=== PATIENT | female | born 1930 | race Caucasian/White ===

== ENCOUNTER 2016-11-19 15:11 | Inpatient (IN) | payer MEDICARE, BC, SELFPAY ==
[2016-11-19] MEDS ORDERED: Albuterol/Ipratropium 3.0-0.5 MG/3 ML Neb Soln NEB PRN (17:17)
[2016-11-19] MEDS ORDERED: Levofloxacin/Dextrose 5%-Water 750 MG in Premix Bag 1 BAG IV SCH (18:00)
[2016-11-19] MEDS ORDERED: Ondansetron 4 MG Tab.DIS PO PRN (18:01)
[2016-11-19] MEDS ORDERED: Sodium Chloride 0.9% 10 ML Syringe FLUSH PRN (18:01)
[2016-11-19] MEDS ORDERED: Sodium Chloride 0.9% 2.5 ML Syringe FLUSH PRN (18:01)
[2016-11-19] MEDS ORDERED: Sodium Chloride 0.9% with KCl 1,000 ML IV SCH (19:15)
[2016-11-19] MEDS ORDERED: Potassium Chloride 20 MEQ Tab.ER PO ONE (19:40)
--- NOTE | 2016-11-19 21:10 | PCM.HP ---
H&P History of Present Illness - General Date of Service: 11/19/16 Admit Problem/Dx: Admission Diagnosis/Problem Admission Diagnosis/Problem Pneumonia Source of Information: Patient, Family - History of Present Illness Initial Comments - Free Text/Narative: History Presenting illness: Patient is a 86-year-old female who lives at home with her son. History was primarily obtained from patient's son and patient's niece. Patient's son states that he is ill 1-1/2 weeks ago with a upper respiratory tract infection which he got over with just some [id number] medication. However around the same time he noticed that his mom picked up his infection as well and she began to cough primarily at nighttime. Then on Thursday this past weekend patient was going to the bathroom and states that while in the bathroom she fell. Her son came up to see what had happened and noticed that his mom was on the floor on her buttocks. Her son asked the patient if she had hit her head patient denied hitting her head or losing consciousness. The son then helped his mom up which did cause some bruising of her lateral chest wall. The patient did have pain and bruising along her lateral thigh and buttocks region. However after the fall the patient's son as well as the patient's niece noticed that she was becoming more and more weak and more more fatigued and her cough is progressively getting worse as well. Along the same time the patient started to have problems with fecal incontinence. And started to have multiple accidents before being able to get to the bathroom. This progressed to the point where the patient's niece and son decided to bring the patient in to see her primary care physician in [place] today. She did have a further 2 episodes of fecal incontinence one just prior to going to the physician's office and one at the physician's office. The physician's office D practitioner noticed that the patient had an elevated WBC count that was neutrophilic in nature, was fatigued and weak, and had very poor rectal tone. The practitioner got a chest x-ray which showed left lower lobe consolidation patchy in nature which was read as either atelectasis versus left lower lobe pneumonia. It is to be noted that the patient has had one episode of a previous fall 6 months ago, she does have severe kyphosis and a old history of compression fracture making her likelihood that she does have osteoporosis severe in nature, as well as she has a past medical history of urinary incontinence. Patient is on hypertensive medication ophthalmic medication for her glaucoma and a statin. - Related Data Allergies/Adverse Reactions: Allergies Allergy/AdvReac Type Severity Reaction Status Date / Time prochlorperazine edisylate Allergy Cannot Verified 06/06/14 14:04 [From Compazine] Remember prochlorperazine maleate Allergy Cannot Verified 06/06/14 14:04 [From Compazine] Remember Home Medications: Home Meds Aspirin [Halfprin] 81 mg PO DAILY 06/06/14 [History] Dorzolamide/Timolol [Dorzolomide-Timolol Eye Drops] 1 drop EYELF BID 06/06/14 [ History] Felodipine [Felodipine ER] 5 mg PO DAILY 06/06/14 [History] Fish Oil/Olivet-3 Fatty Acids [Fish Oil] 0 mg PO DAILY 06/06/14 [History] Latanoprost 1 drop EYELF BEDTIME 06/06/14 [History] Losartan/Hydrochlorothiazide [Losartan-HCTZ 100-25 MG] 1 tab PO DAILY 06/06/14 [ History] Oxybutynin [Oxybutynin ER] 5 mg PO DAILY 06/06/14 [History] Potassium Chloride [Klor-Con 10] 10 meq PO DAILY 06/06/14 [History] Mirtazapine 15 mg PO DAILY 11/19/16 [History] Multivitamin with Minerals [Multiple Vitamin] 1 tab PO DAILY 11/19/16 [History] atorvaSTATin [Lipitor] 10 mg PO DAILY 11/19/16 [History] prednisoLONE Acetate [Pred Forte 1% Ophth Susp] 1 drop EYERT BID 11/19/16 [ History] Past Medical History HEENT History: Reports: Glaucoma Cardiovascular History: Reports: Hypertension 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, Recurrent [employer] SMALL ANIMAL History: Reports: Other (See Below) Other OB/BYN History: hysterectomy Musculoskeletal History: Reports: Osteoporosis Psychiatric History: Reports: Anxiety Dermatologic History: Reports: Other (See Below) Other Dermatologic History: yeast infections - Past Surgical History HEENT Surgical History: Reports: Cataract Surgery Cardiovascular Surgical History: Reports: None Respiratory Surgical History: Reports: None Musculoskeletal Surgical History: Reports: None Dermatological Surgical History: Reports: None Social & Family History - Family History HEENT: Reports: Glaucoma Cardiac: Reports: Hypertension Respiratory: Reports: COPD Musculoskeletal: Reports: Arthritis, Osteoporosis - Tobacco Use Smoking Status *Q: Never Smoker Second Hand Smoke Exposure: Yes - Caffeine Use Caffeine Use: Reports: Coffee - Alcohol Use Days Per Week of Alcohol Use: 0 - Recreational Drug Use Recreational Drug Use: No H&P Review of Systems - Review of Systems: Review Of Systems: ROS reveals no pertinent complaints other than HPI. Exam - Exam Exam: See Below - Vital Signs Vital Signs: Last Vital Signs Temp 36.2 C 11/19/16 20:00 Pulse 92 11/19/16 20:00 Resp 20 11/19/16 16:00 BP 132/60 11/19/16 16:00 Pulse Ox 92 L 11/19/16 19:38 Weight: 64 kg - Exam General: Alert, Oriented HEENT: Conjunctiva Clear, Mucosa Moist & Jem[place], Other (No fractures noted on evaluation of the head, no ni sign/ecchymosis noticed that the back of the ear lobes, no raccoon eyes noted.) Neck: Supple Lungs: Decreased Breath Sounds, Crackles, Rales, Wheezing, Other (Bruising around the right ninth rib laterally) Cardiovascular: Regular Rate GI/Abdominal Exam: Normal Bowel Sounds, Soft, No Organomegaly (Female) Exam: Other (Poor rectal tone noted on CARLOS, superficial skin breakdown/excoriation , minor ulceration along the labial folds and inner thigh of the inguinal region likely secondary to fungal infection) Rectal (Female) Exam: Decreased Rectal Tone Extremities: Pedal Edema, Other (+2 pitting edema bilaterally lower extremities up to the ankles, bruise along the lateral right thigh, upon palpation of back and lower extremities no saddle anesthesia noticed) - Patient Data Lab Results Last 24 hrs: Laboratory Results - last 24 hr 11/19/16 11/19/16 11/19/16 Range/Units 18:52 18:52 18:52 WBC 16.56 H (4.0-11.0) K/uL RBC 3.45 L (4.30-5.90) M/uL Hgb 10.1 L (12.0-16.0) g/dL Hct 30.8 L (36.0-46.0) % MCV 89.3 (80.0-98.0) fL MCH 29.3 (27.0-32.0) pg MCHC 32.8 (31.0-37.0) g/dL RDW Std Deviation 52.9 (28.0-62.0) fl RDW Coeff of Dillon 16 H (11.0-15.0) % Plt Count 367 (150-400) K/uL MPV 9.10 (7.40-12.00) fL Neut % (Auto) 77.2 (48.0-80.0) % Lymph % (Auto) 15.7 L (16.0-40.0) % Wolfe % (Auto) 5.8 (0.0-15.0) % Eos % (Auto) 1.1 (0.0-7.0) % Baso % (Auto) 0.2 (0.0-1.5) % Neut # (Auto) 12.8 H (1.4-5.7) K/uL Lymph # (Auto) 2.6 H (0.6-2.4) K/uL Wolfe # (Auto) 1.0 H (0.0-0.8) K/uL Eos # (Auto) 0.2 (0.0-0.7) K/uL Baso # (Auto) 0.0 (0.0-0.1) K/uL Nucleated RBC % 0.0 /100WBC Nucleated RBCs # 0 K/uL Sodium 137 (136-146) mmol/L Potassium 2.4 L* (3.5-5.1) mmol/L Chloride 94 L (98-110) mmol/L Carbon Dioxide 31 (21-31) mmol/L BUN 54 H (6.0-23.0) mg/dL Creatinine 1.5 (0.6-1.5) mg/dL Est Cr Clr Drug Dosing 19.94 mL/min Estimated GFR (MDRD) 32.8 ml/min Glucose 86 (60-110) mg/dL Calcium 8.2 L (8.8-10.8) mg/dL Magnesium 1.8 (1.5-2.3) mEq/L Total Bilirubin 0.3 (0.1-1.5) mg/dL AST 21 (5-40) IU/L ALT 18 (8-54) IU/L Alkaline Phosphatase 72 (40-150) Total Protein 6.4 (6.0-8.0) g/dL Albumin 2.8 L (3.4-4.8) g/dL Globulin 3.6 H (2.0-3.5) g/dL Albumin/Globulin Ratio 0.8 L (1.3-2.8) Result Diagrams: 11/19/16 18:52 11/19/16 18:52 Matteo Results Last 24 hrs: Microbiology 11/19/16 19:30 Influenza Type A Antigen Screen - Final Nasopharyngeal Swab - Nare, Left NEGATIVE INFLUENZA A VIRUS AG Influenza Type B Antigen Screen - Final NEGATIVE INFLUENZA B VIRUS AG *Q Meaningful Use (ADM) - VTE *Q VTE Criteria *Q: - Stroke *Q Stroke Criteria *Q: - AMI *Q AMI Criteria *Q: Problem List Initiated/Reviewed/Updated: Yes Orders Last 24hrs: Active Orders 24 hr Category Date Time Status Patient Status [ADT] Routine ADT 11/19/16 17:21 Active Bedrest Bedside Commode [RC] ASDIRECTED Care 11/19/16 17:44 Active Intake and Output [RC] Q12H Care 11/19/16 17:45 Active Notify Provider Vital Signs [RC] ASDIRECTED Care 11/19/16 17:46 Active Oxygen Therapy [RC] PRN Care 11/19/16 17:17 Active Oxygen Therapy [RC] PRN Care 11/19/16 17:21 Active Pneumonia Education [RC] Click To Edit Care 11/19/16 17:17 Active Pulse Oximetry [RC] PRN Care 11/19/16 17:45 Active RT Incentive Spirometry [RC] ASDIRECTED Care 11/19/16 17:17 Active Telemetry Monitoring [Cardiac Monitoring] [RC] Care 11/19/16 19:44 Active ASDIRECTED VTE/DVT Education [RC] PER UNIT ROUTINE Care 11/19/16 17:21 Active Vital Signs [RC] Q4H Care 11/19/16 17:21 Active Regular Diet [DIET] Diet 11/19/16 Breakfast Active Chest 1V Frontal [CR] Stat Exams 11/19/16 18:01 Taken CULTURE BLOOD [BC] Stat Lab 11/19/16 18:52 Received CULTURE BLOOD [BC] Stat Lab 11/19/16 19:02 Received CULTURE SPUTUM + SMEAR [RM] Stat Lab 11/19/16 17:17 Uncollected LEGIONELLA ANTIGEN [RM] Stat Lab 11/19/16 17:17 Uncollected STREP PNEUMONIAE ANTIGEN [MREF] Stat Lab 11/19/16 17:17 Uncollected Acetaminophen [Tylenol] Med 11/19/16 18:01 Active 650 mg PO Q4H PRN Albuterol/Ipratropium [DuoNeb 3.0-0.5 MG/3 ML] Med 11/19/16 17:17 Active 3 ml NEB Q4HRRT PRN Enoxaparin [Lovenox] Med 11/20/16 09:00 Active 30 mg SUBCUT DAILY Levofloxacin/Dextrose 5%-Water [Levaquin in D5W 750 MG/ Med 11/21/16 18:00 Active 150 ML] 750 mg Premix Bag 1 bag IV Q48H Nystatin [Nystop] Med 11/19/16 22:00 Active 0 gm TOP TID Ondansetron [Zofran ODT] Med 11/19/16 18:01 Active 4 mg PO Q4H PRN Sodium Chloride 0.9% [Saline Flush] Med 11/19/16 18:01 Active 10 ml FLUSH ASDIRECTED PRN Sodium Chloride 0.9% [Saline Flush] Med 11/19/16 18:01 Active 2.5 ml FLUSH ASDIRECTED PRN Sodium Chloride 0.9% with KCl [Normal Saline with 40 Med 11/19/16 19:15 Active mEq KCl] 1,000 ml IV ASDIRECTED Blood Culture x2 Reflex Set [OM.PC] Stat Oth 11/19/16 17:17 Ordered Peripheral IV Insertion Adult [OM.PC] Routine Oth 11/19/16 18:01 Ordered Saline Lock Insert [OM.PC] Routine Oth 11/19/16 18:01 Ordered Resuscitation Status Routine Resus Stat 11/19/16 17:21 Ordered Medication Orders Acetaminophen (Tylenol) 650 mg PO Q4H PRN PRN Reason: Pain (Mild 1-3)/fever Albuterol/Ipratropium (Duoneb 3.0-0.5 Mg/3 Ml) 3 ml NEB Q4HRRT PRN PRN Reason: Shortness Of Breath/wheezing Enoxaparin Sodium (Lovenox) 30 mg SUBCUT DAILY ANDREINA Potassium Chloride/Sodium Chloride (Normal Saline With 40 Meq Kcl) 1,000 mls @ 150 mls/hr IV ASDIRECTED ANDREINA Stop: 11/20/16 01:54 Last Admin: 11/19/16 19:46 Dose: 150 mls/hr Levofloxacin/Dextrose 750 mg/ (Premix) 150 mls @ 150 mls/hr IV Q48H ANDREINA Nystatin (Nystop) 0 gm TOP TID ANDREINA Ondansetron HCl (Zofran Odt) 4 mg PO Q4H PRN PRN Reason: nausea, able to take PO Sodium Chloride (Saline Flush) 10 ml FLUSH ASDIRECTED PRN PRN Reason: Keep Vein Open Sodium Chloride (Saline Flush) 2.5 ml FLUSH ASDIRECTED PRN PRN Reason: Keep Vein Open Assessment/Plan Comment:: Assessment/plan: #1. Shortness of breath, wheezing, fatigue/weakness, elevated WBC count is neutrophilic in nature, cough, patchy infiltration of left lower lobe secondary to left lower lobe pneumonia bacterial in nature as the most likely cause -Sputum cultures, blood cultures 2, urine strep pneumonia antigen as well as Legionella antigen as well as influenza cultures shall be obtained for this patient -CBC with differential, CMP -Repeat chest x-ray -Levaquin 750 mg IV along with dual nebs every 6 hours ,oxygenation support as needed #2. Hypokalemia with a potassium of 2.8 upon admission - Started the patient on IV fluids normal saline with 40 of potassium at a rate of 125 mL per hour #3. Skin breakdown/excoriation/ulceration of vaginal fold along with inner thigh likely secondary to fungal infection -Topical nystatin powder 1000 mg 3 times a day #4. Lovenox and SCDs for DVT prophylaxis #5. Vitals monitored. A protocol along with regular diet Patient shall be an inpatient status with assumption of stayed greater than 2 midnights.
[2016-11-19] MEDS: Nystatin Topical Powder 15 GM Bottle TOP SCH (22:18)
[2016-11-20] MEDS: Nystatin Topical Powder 15 GM Bottle TOP SCH ×3 (06:22→21:23)
[2016-11-20] MEDS: Enoxaparin 30 MG/0.3 ML Syringe SUBCUT SCH (09:01)
[2016-11-20] MEDS: Dorzolamide/Timolol 2%-0.5% Ophth Soln 10 ML Bottle EYELF SCH ×2 (11:56→20:24)
[2016-11-20] MEDS: prednisoLONE Acetate 1% Ophth Susp 5 ML Bottle EYERT SCH ×2 (11:57→20:25)
--- NOTE | 2016-11-20 13:07 | CR ---
EXAM DATE: 11/19/16 PATIENT'S AGE: 86 Patient: VINOD SHIPLEY Facility: [place], [place] Site . Site : [id number] Study: XRay Chest [id number] 7:22:10 PM Ordering Physician: Davon Muñoz Final Report: INDICATION: llb pna HISTORY: Left lower lobe pneumonia. COMPARISON: None. TECHNIQUE: Chest one-view portable. FINDINGS: Low lung volumes. Vague opacities in both lungs, right greater the left, which may be secondary to low lung volumes, but followup is advised. Chronic appearing right posterior rib fractures. Atelectasis or consolidation at the left lung base, with blunting of the left lateral costophrenic sulcus. This could represent a small left pleural effusion. There is no pneumothorax. Central airway is normal. IMPRESSION: Atelectasis or consolidation at the left lung base, with a suspected small ipsilateral pleural effusion. Dictated by Francisco West MD @ 11/20/2016 12:10:01 PM Dictated by: Francisco West MD @ 11/20/2016 12:10:09 (Electronic Signature) Report Signed by Proxy. TREY
--- NOTE | 2016-11-20 19:14 | PCM.PN ---
- General Info Date of Service: 11/20/16 Admission Dx/Problem (Free Text): Pnio has done well overnight. She still is having some tachypnea but overall doing better no longer wheezing when I saw her this morning she was eating a very large breakfast and seemed to be much more awake much more alert and very talkative. He is denying any nausea or vomiting, denying any headaches, denied any abdominal symptoms. She is no longer febrile. Taking in good by mouth. Will get physical therapy to work with with her - Review of Systems General: Reports: Weakness, Fatigue HEENT: Reports: No Symptoms Pulmonary: Reports: Shortness of Breath Cardiovascular: Reports: Lightheadedness Gastrointestinal: Reports: No Symptoms Genitourinary: Reports: Incontinence Musculoskeletal: Reports: Leg Pain Skin: Reports: Rash Neurological: Reports: No Symptoms Psychiatric: Reports: No Symptoms - Patient Data Vitals - Most Recent: Last Vital Signs Temp 36.4 C 11/20/16 16:00 Pulse 79 11/20/16 16:00 Resp 20 11/20/16 16:00 BP 132/58 L 11/20/16 16:00 Pulse Ox 91 L 11/20/16 18:04 Weight - Most Recent: 66.5 kg I&O - Last 24 Hours: Intake & Output 11/20/16 11/20/16 11/20/16 06:59 14:59 22:59 Intake Total 2300 1116 Output Total 150 600 Balance 2150 516 Lab Results Last 24 Hours: Laboratory Results - last 24 hr 11/19/16 11/19/16 11/19/16 Range/Units 18:52 18:52 18:52 WBC 16.56 H (4.0-11.0) K/uL RBC 3.45 L (4.30-5.90) M/uL Hgb 10.1 L (12.0-16.0) g/dL Hct 30.8 L (36.0-46.0) % MCV 89.3 (80.0-98.0) fL MCH 29.3 (27.0-32.0) pg MCHC 32.8 (31.0-37.0) g/dL RDW Std Deviation 52.9 (28.0-62.0) fl RDW Coeff of Dillon 16 H (11.0-15.0) % Plt Count 367 (150-400) K/uL MPV 9.10 (7.40-12.00) fL Neut % (Auto) 77.2 (48.0-80.0) % Lymph % (Auto) 15.7 L (16.0-40.0) % Caldwell % (Auto) 5.8 (0.0-15.0) % Eos % (Auto) 1.1 (0.0-7.0) % Baso % (Auto) 0.2 (0.0-1.5) % Neut # (Auto) 12.8 H (1.4-5.7) K/uL Lymph # (Auto) 2.6 H (0.6-2.4) K/uL Caldwell # (Auto) 1.0 H (0.0-0.8) K/uL Eos # (Auto) 0.2 (0.0-0.7) K/uL Baso # (Auto) 0.0 (0.0-0.1) K/uL Nucleated RBC % 0.0 /100WBC Nucleated RBCs # 0 K/uL Sodium 137 (136-146) mmol/L Potassium 2.4 L* (3.5-5.1) mmol/L Chloride 94 L (98-110) mmol/L Carbon Dioxide 31 (21-31) mmol/L BUN 54 H (6.0-23.0) mg/dL Creatinine 1.5 (0.6-1.5) mg/dL Est Cr Clr Drug Dosing 19.94 mL/min Estimated GFR (MDRD) 32.8 ml/min Glucose 86 (60-110) mg/dL Calcium 8.2 L (8.8-10.8) mg/dL Magnesium 1.8 (1.5-2.3) mEq/L Total Bilirubin 0.3 (0.1-1.5) mg/dL AST 21 (5-40) IU/L ALT 18 (8-54) IU/L Alkaline Phosphatase 72 (40-150) Total Protein 6.4 (6.0-8.0) g/dL Albumin 2.8 L (3.4-4.8) g/dL Globulin 3.6 H (2.0-3.5) g/dL Albumin/Globulin Ratio 0.8 L (1.3-2.8) Urine Color Urine Appearance Urine pH (5.0-8.0) Ur Specific [place] (1.001-1.035) Urine Protein (NEGATIVE) mg/dL Urine Glucose (UA) (NEGATIVE) mg/dL Urine Ketones (NEGATIVE) mg/dL Urine Occult Blood (NEGATIVE) Urine Nitrite (NEGATIVE) Urine Bilirubin (NEGATIVE) Urine Urobilinogen (<2.0) EU/dL Ur Leukocyte Esterase (NEGATIVE) Urine RBC (0-2/HPF) Urine WBC (0-5/HPF) Ur Epithelial Cells (NONE-FEW) Urine Bacteria (NEGATIVE) 11/19/16 11/20/16 11/20/16 Range/Units 22:45 04:50 04:50 WBC 13.96 H (4.0-11.0) K/uL RBC 3.34 L (4.30-5.90) M/uL Hgb 9.6 L (12.0-16.0) g/dL Hct 29.5 L (36.0-46.0) % MCV 88.3 (80.0-98.0) fL MCH 28.7 (27.0-32.0) pg MCHC 32.5 (31.0-37.0) g/dL RDW Std Deviation 51.4 (28.0-62.0) fl RDW Coeff of Dillon 16 H (11.0-15.0) % Plt Count 303 (150-400) K/uL MPV 8.90 (7.40-12.00) fL Neut % (Auto) 78.6 (48.0-80.0) % Lymph % (Auto) 13.3 L (16.0-40.0) % Caldwell % (Auto) 6.8 (0.0-15.0) % Eos % (Auto) 1.2 (0.0-7.0) % Baso % (Auto) 0.1 (0.0-1.5) % Neut # (Auto) 11.0 H (1.4-5.7) K/uL Lymph # (Auto) 1.9 (0.6-2.4) K/uL Caldwell # (Auto) 1.0 H (0.0-0.8) K/uL Eos # (Auto) 0.2 (0.0-0.7) K/uL Baso # (Auto) 0.0 (0.0-0.1) K/uL Nucleated RBC % 0.0 /100WBC Nucleated RBCs # 0 K/uL Sodium 135 L (136-146) mmol/L Potassium 3.9 (3.5-5.1) mmol/L Chloride 99 (98-110) mmol/L Carbon Dioxide 28 (21-31) mmol/L BUN 40 H (6.0-23.0) mg/dL Creatinine 1.0 (0.6-1.5) mg/dL Est Cr Clr Drug Dosing 29.91 mL/min Estimated GFR (MDRD) 52.4 ml/min Glucose 82 (60-110) mg/dL Calcium 7.3 L (8.8-10.8) mg/dL Magnesium (1.5-2.3) mEq/L Total Bilirubin 0.3 (0.1-1.5) mg/dL AST 19 (5-40) IU/L ALT 17 (8-54) IU/L Alkaline Phosphatase 65 (40-150) Total Protein 5.2 L (6.0-8.0) g/dL Albumin 2.5 L (3.4-4.8) g/dL Globulin 2.7 (2.0-3.5) g/dL Albumin/Globulin Ratio 0.9 L (1.3-2.8) Urine Color YELLOW Urine Appearance SLT CLOUDY Urine pH 6.0 (5.0-8.0) Ur Specific [place] 1.010 (1.001-1.035) Urine Protein NEGATIVE (NEGATIVE) mg/dL Urine Glucose (UA) NEGATIVE (NEGATIVE) mg/dL Urine Ketones NEGATIVE (NEGATIVE) mg/dL Urine Occult Blood TRACE-INTACT (NEGATIVE) Urine Nitrite POSITIVE H (NEGATIVE) Urine Bilirubin NEGATIVE (NEGATIVE) Urine Urobilinogen 0.2 (<2.0) EU/dL Ur Leukocyte Esterase SMALL (NEGATIVE) Urine RBC 0-2 (0-2/HPF) Urine WBC 30-40 (0-5/HPF) Ur Epithelial Cells FEW (NONE-FEW) Urine Bacteria FEW (NEGATIVE) Matteo Results Last 24 Hours: Microbiology 11/19/16 22:45 Streptococcus pneumoniae Ag Screen - Final Urine 11/19/16 22:45 Legionella Antigen - Final Urine, Catheterized 11/19/16 20:52 Gram Stain - Preliminary Sputum - Expectorated 11/19/16 19:30 Influenza Type A Antigen Screen - Final Nasopharyngeal Swab - Nare, Left NEGATIVE INFLUENZA A VIRUS AG Influenza Type B Antigen Screen - Final NEGATIVE INFLUENZA B VIRUS AG Med Orders - Current: Current Medications Acetaminophen (Tylenol) 650 mg PO Q4H PRN PRN Reason: Pain (Mild 1-3)/fever Albuterol/Ipratropium (Duoneb 3.0-0.5 Mg/3 Ml) 3 ml NEB Q4HRRT PRN PRN Reason: Shortness Of Breath/wheezing Dorzolamide/Timolol (Cosopt 2%-0.5% Ophth Soln) 0 ml EYELF BID [facility] Last Admin: 11/20/16 11:56 Dose: 1 drop Enoxaparin Sodium (Lovenox) 30 mg SUBCUT DAILY [facility] Last Admin: 11/20/16 09:01 Dose: 30 mg Levofloxacin/Dextrose 750 mg/ (Premix) 150 mls @ 150 mls/hr IV Q48H [facility] Latanoprost (Xalatan 0.005% Ophth Soln) 0 ml EYELF BEDTIME [facility] Nystatin (Nystop) 0 gm TOP TID [facility] Last Admin: 11/20/16 14:41 Dose: 1 applic Ondansetron HCl (Zofran Odt) 4 mg PO Q4H PRN PRN Reason: nausea, able to take PO Prednisolone Acetate (Pred Forte 1% Ophth Susp) 0 ml EYERT BID [facility] Last Admin: 11/20/16 11:57 Dose: 1 drop Sodium Chloride (Saline Flush) 10 ml FLUSH ASDIRECTED PRN PRN Reason: Keep Vein Open Sodium Chloride (Saline Flush) 2.5 ml FLUSH ASDIRECTED PRN PRN Reason: Keep Vein Open Discontinued Medications Levofloxacin/Dextrose 750 mg/ (Premix) 150 mls @ 150 mls/hr IV Q24H [facility] Last Infusion: 11/19/16 20:10 Dose: Infused Potassium Chloride/Sodium Chloride (Normal Saline With 40 Meq Kcl) 1,000 mls @ 150 mls/hr IV ASDIRECTED [facility] Stop: 11/20/16 01:54 Last Infusion: 11/20/16 02:32 Dose: Infused Potassium Chloride (Klor-Con M20) 40 meq PO ONETIME ONE Stop: 11/19/16 19:41 Last Admin: 11/19/16 19:53 Dose: 40 meq - Exam Quality Assessment: Supplemental Oxygen General: Alert, Oriented, Cooperative HEENT: Pupils Equal Neck: Supple Lungs: Decreased Breath Sounds Cardiovascular: Regular Rate, Regular Rhythm GI/Abdominal Exam: Normal Bowel Sounds, Soft (Female) Exam: Other (Rash/fungal infection lateral thigh and vaginal fold) Psy/Mental Status: Alert, Normal Affect - Problem List Review Problem List Initiated/Reviewed/Updated: Yes - My Orders Last 24 Hours: My Active Orders 11/19/16 18:52 CULTURE BLOOD [BC] Stat 11/19/16 19:02 CULTURE BLOOD [BC] Stat 11/19/16 20:52 CULTURE SPUTUM + SMEAR [RM] Stat 11/19/16 22:00 Nystatin [Nystop] 0 gm TOP TID 11/20/16 09:00 Enoxaparin [Lovenox] 30 mg SUBCUT DAILY 11/20/16 11:15 Dorzolamide/Timolol [Cosopt 2%-0.5% Ophth Soln] 0 ml EYELF BID prednisoLONE Acetate [Pred Forte 1% Ophth Susp] 0 ml EYERT BID 11/20/16 21:00 Latanoprost [Xalatan 0.005% Ophth Soln] 0 ml EYELF BEDTIME 11/21/16 05:11 BASIC METABOLIC PANEL,BMP [CHEM] Routine CBC WITH AUTO DIFF [HEME] Routine 11/21/16 18:00 Levofloxacin/Dextrose 5%-Water [Levaquin in D5W 750 MG/150 ML] 750 mg Premix Bag 1 bag IV Q48H - Plan Plan:: Assessment/plan: #1. Shortness of breath, wheezing, fatigue/weakness, elevated WBC count is neutrophilic in nature, cough, patchy infiltration of left lower lobe secondary to left lower lobe pneumonia bacterial in nature as the most likely cause -Sputum cultures showing mixed lino growth - blood cultures 2 awaiting results -urine strep pneumonia, Legionella antigen as well as influenza cultures all negative -CBC with differential, CMP Repeat tomorrow -Levaquin 750 mg IV along with dual nebs every 6 hours ,oxygenation support as needed 2. Urinary analysis shows positive for UTI - Patient should be adequate covered with Levaquin that she is already on for pneumonia treatment. 3. Hypokalemia with a potassium of 2.8 upon admission - Hypokalemia has now resolved 4. Skin breakdown/excoriation/ulceration of vaginal fold along with inner thigh likely secondary to fungal infection -Topical nystatin powder 1000 mg 3 times a day 5. Physical therapy consultation for ambulation assessment
[2016-11-20] MEDS: Latanoprost 0.005% Ophth Soln 2.5 ML Bottle EYELF SCH (20:28)
[2016-11-21 05:52] LABS: CHLORIDE,CL 99 mmol/L (98-110); SODIUM,NA 134 mmol/L (136-146)
[2016-11-21] MEDS: Nystatin Topical Powder 15 GM Bottle TOP SCH ×3 (06:26→21:00)
[2016-11-21] MEDS: Enoxaparin 30 MG/0.3 ML Syringe SUBCUT SCH (08:50)
[2016-11-21] MEDS: Dorzolamide/Timolol 2%-0.5% Ophth Soln 10 ML Bottle EYELF SCH ×2 (08:54→20:06)
[2016-11-21] MEDS: prednisoLONE Acetate 1% Ophth Susp 5 ML Bottle EYERT SCH ×2 (08:56→20:06)
[2016-11-21] MEDS ORDERED: Magnesium Sulfate/Water 4 GM in Premix Bag 1 BAG IV ONE (13:08)
[2016-11-21] MEDS: Levofloxacin/Dextrose 5%-Water 750 MG in Premix Bag 1 BAG IV SCH (18:02)
[2016-11-21] MEDS: Latanoprost 0.005% Ophth Soln 2.5 ML Bottle EYELF SCH (20:06)
--- NOTE | 2016-11-21 22:40 | PCM.PN ---
<Luis E Zafar Z - Last Filed: 11/21/16 22:34> - General Info Date of Service: 11/21/16 Subjective Update: Pino is doing very well since being initially admitted to the inpatient [facility]. Her WBC count has trended down nicely, she has perked up quite well, is very talkative, seems less somnolent and confused, is taking appropriate amount of by mouth, and it is having appropriate bowel function. Still requiring about 2 L of oxygenation in order to saturate above 92%. Is not having any nausea, vomiting, diarrhea, constipation, shortness of breath, headaches. As such we did feel that she would be suitable to be going home today. - Review of Systems General: Reports: Weakness Pulmonary: Reports: No Symptoms, Cough Musculoskeletal: Reports: Leg Pain Skin: Reports: Rash - Patient Data Vitals - Most Recent: Last Vital Signs Temp 36.6 C 11/21/16 20:00 Pulse 82 11/21/16 20:00 Resp 18 11/21/16 20:00 BP 128/74 11/21/16 20:00 Pulse Ox 94 L 11/21/16 22:10 Weight - Most Recent: 66.5 kg I&O - Last 24 Hours: Intake & Output 11/21/16 11/21/16 11/21/16 06:59 14:59 22:59 Intake Total 498 774 1646 Output Total 1103 337 Balance -863 100 973 Lab Results Last 24 Hours: Laboratory Results - last 24 hr 11/21/16 11/21/16 11/21/16 Range/Units 05:20 05:20 05:20 WBC 11.18 H (4.0-11.0) K/uL RBC 3.51 L (4.30-5.90) M/uL Hgb 9.9 L (12.0-16.0) g/dL Hct 31.1 L (36.0-46.0) % MCV 88.6 (80.0-98.0) fL MCH 28.2 (27.0-32.0) pg MCHC 31.8 (31.0-37.0) g/dL RDW Std Deviation 52.1 (28.0-62.0) fl RDW Coeff of Dillon 16 H (11.0-15.0) % Plt Count 324 (150-400) K/uL MPV 9.30 (7.40-12.00) fL Neut % (Auto) 71.0 (48.0-80.0) % Lymph % (Auto) 19.0 (16.0-40.0) % Luce % (Auto) 8.4 (0.0-15.0) % Eos % (Auto) 1.3 (0.0-7.0) % Baso % (Auto) 0.3 (0.0-1.5) % Neut # (Auto) 7.9 H (1.4-5.7) K/uL Lymph # (Auto) 2.1 (0.6-2.4) K/uL Luce # (Auto) 0.9 H (0.0-0.8) K/uL Eos # (Auto) 0.2 (0.0-0.7) K/uL Baso # (Auto) 0.0 (0.0-0.1) K/uL Nucleated RBC % 0.0 /100WBC Nucleated RBCs # 0 K/uL Sodium 134 L (136-146) mmol/L Potassium 3.9 (3.5-5.1) mmol/L Chloride 99 (98-110) mmol/L Carbon Dioxide 26 (21-31) mmol/L BUN 25 H (6.0-23.0) mg/dL Creatinine 0.8 (0.6-1.5) mg/dL Est Cr Clr Drug Dosing 37.43 mL/min Estimated GFR (MDRD) > 60.0 ml/min Glucose 85 (60-110) mg/dL Calcium 8.0 L (8.8-10.8) mg/dL Magnesium 1.4 L (1.5-2.3) mEq/L Matteo Results Last 24 Hours: Microbiology 11/19/16 19:02 Aerobic Blood Culture - Preliminary Blood - Venous - Lab Draw NO GROWTH AFTER 2 DAYS Anaerobic Blood Culture - Preliminary NO GROWTH AFTER 2 DAYS 11/19/16 18:52 Aerobic Blood Culture - Preliminary Blood - Venous NO GROWTH AFTER 2 DAYS Anaerobic Blood Culture - Preliminary NO GROWTH AFTER 2 DAYS 11/19/16 20:52 Gram Stain - Preliminary Sputum - Expectorated Sputum Culture - Final YEAST Normal Respiratory Lino Med Orders - Current: Current Medications Acetaminophen (Tylenol) 650 mg PO Q4H PRN PRN Reason: Pain (Mild 1-3)/fever Albuterol/Ipratropium (Duoneb 3.0-0.5 Mg/3 Ml) 3 ml NEB Q4HRRT PRN PRN Reason: Shortness Of Breath/wheezing Dorzolamide/Timolol (Cosopt 2%-0.5% Ophth Soln) 0 ml EYELF BID [facility] Last Admin: 11/21/16 20:06 Dose: 1 drop Enoxaparin Sodium (Lovenox) 30 mg SUBCUT DAILY [facility] Last Admin: 11/21/16 08:50 Dose: 30 mg Levofloxacin/Dextrose 750 mg/ (Premix) 150 mls @ 150 mls/hr IV Q48H [facility] Last Admin: 11/21/16 18:02 Dose: 150 mls/hr Latanoprost (Xalatan 0.005% Ophth Soln) 0 ml EYELF BEDTIME [facility] Last Admin: 11/21/16 20:06 Dose: 1 drop Nystatin (Nystop) 0 gm TOP TID [facility] Last Admin: 11/21/16 21:00 Dose: 1 applic Ondansetron HCl (Zofran Odt) 4 mg PO Q4H PRN PRN Reason: nausea, able to take PO Prednisolone Acetate (Pred Forte 1% Ophth Susp) 0 ml EYERT BID [facility] Last Admin: 11/21/16 20:06 Dose: 1 drop Sodium Chloride (Saline Flush) 10 ml FLUSH ASDIRECTED PRN PRN Reason: Keep Vein Open Sodium Chloride (Saline Flush) 2.5 ml FLUSH ASDIRECTED PRN PRN Reason: Keep Vein Open Discontinued Medications Levofloxacin/Dextrose 750 mg/ (Premix) 150 mls @ 150 mls/hr IV Q24H [facility] Last Infusion: 11/19/16 20:10 Dose: Infused Potassium Chloride/Sodium Chloride (Normal Saline With 40 Meq Kcl) 1,000 mls @ 150 mls/hr IV ASDIRECTED [facility] Stop: 11/20/16 01:54 Last Infusion: 11/20/16 02:32 Dose: Infused Magnesium Sulfate 4 gm/ Premix 100 mls @ 50 mls/hr IV ONETIME ONE Stop: 11/21/16 15:07 Last Admin: 11/21/16 13:50 Dose: 50 mls/hr Potassium Chloride (Klor-Con M20) 40 meq PO ONETIME ONE Stop: 11/19/16 19:41 Last Admin: 11/19/16 19:53 Dose: 40 meq - Exam Quality Assessment: Supplemental Oxygen General: Alert HEENT: Pupils Equal Neck: Supple, Trachea Midline Lungs: Decreased Breath Sounds Cardiovascular: Regular Rate, Regular Rhythm GI/Abdominal Exam: Normal Bowel Sounds, Soft, Non-Tender Extremities: Other (She has severe kyphosis) - Problem List & Annotations (1) Hypoxia SNOMED Code(s): 993069490, 830616862 Code(s): R09.02 - HYPOXEMIA Status: Acute Priority: High Current Visit : Yes (2) PNA (pneumonia) SNOMED Code(s): 409988649 Code(s): J18.9 - PNEUMONIA, UNSPECIFIED ORGANISM Status: Acute Priority: High Current Visit: Yes - Problem List Review Problem List Initiated/Reviewed/Updated: Yes - My Orders Last 24 Hours: My Active Orders 11/21/16 10:53 Ready for Discharge [RC] PER UNIT ROUTINE 11/21/16 18:00 Levofloxacin/Dextrose 5%-Water [Levaquin in D5W 750 MG/150 ML] 750 mg Premix Bag 1 bag IV Q48H 11/22/16 05:11 BASIC METABOLIC PANEL,BMP [CHEM] Routine CBC WITH AUTO DIFF [HEME] Routine MAGNESIUM [CHEM] Routine - Plan Plan:: Assessment/plan: #1. Shortness of breath, wheezing, fatigue/weakness, elevated WBC count is neutrophilic in nature, cough, patchy infiltration of left lower lobe secondary to left lower lobe pneumonia bacterial in nature as the most likely cause -Sputum cultures showing mixed lino growth - blood cultures 2 negative so far -urine strep pneumonia, Legionella antigen as well as influenza cultures all negative -CBC with differential, CMP Repeat tomorrow -Levaquin 750 mg IV along with dual nebs every 6 hours ,oxygenation support as needed 2. Urinary analysis shows positive for UTI - Patient should be adequate covered with Levaquin that she is already on for pneumonia treatment. 3. Hypokalemia with a potassium of 2.8 upon admission - Hypokalemia has now resolved 4. Skin breakdown/excoriation/ulceration of vaginal fold along with inner thigh likely secondary to fungal infection -Topical nystatin powder 1000 mg 3 times a day 5. Physical therapy consultation for ambulation assessment -Physical therapy walked the patient today, and noted that on room air showed her oxygen saturation dropped into the 70s. 6. disposition issue secondary to hypoxemia/oxygen requirement -Patient was set to be discharged on home oxygen as well as home health with oral and antibiotic Levaquin 750 mg however after speaking with [employer] who supplies the oxygen we were informed that Medicare would not cover her oxygen despite her medical necessary need. Due to the fact that she has pneumonia which Medicare considers an acute non-chronic issue and will not pay for the patient's home oxygen. Due to the fact that the patient cannot afford to pay out -of-pocket cost for oxygen it would be unsafe to send the patient home right now. As such as of right now we shall keep the patient in the hospital until her requirement for oxygen has either decreased to the point where we feel that she is adequately safe to be sent home on how she is back on room air. <Dennis Gutierrez - Last Filed: 11/22/16 08:37> - Patient Data Vitals - Most Recent: Last Vital Signs Temp 36.6 C 11/22/16 04:00 Pulse 75 11/22/16 04:00 Resp 18 11/22/16 04:00 BP 132/61 11/22/16 04:00 Pulse Ox 91 L 11/22/16 04:00 I&O - Last 24 Hours: Intake & Output 11/21/16 11/22/16 11/22/16 22:59 06:59 14:59 Intake Total 1310 475 Output Total 337 Balance 973 475 Lab Results Last 24 Hours: Laboratory Results - last 24 hr 11/22/16 11/22/16 Range/Units 06:21 06:21 WBC 11.48 H (4.0-11.0) K/uL RBC 3.37 L (4.30-5.90) M/uL Hgb 9.8 L (12.0-16.0) g/dL Hct 29.5 L (36.0-46.0) % MCV 87.5 (80.0-98.0) fL MCH 29.1 (27.0-32.0) pg MCHC 33.2 (31.0-37.0) g/dL RDW Std Deviation 51.3 (28.0-62.0) fl RDW Coeff of Dillon 16 H (11.0-15.0) % Plt Count 298 (150-400) K/uL MPV 9.30 (7.40-12.00) fL Neut % (Auto) 71.8 (48.0-80.0) % Lymph % (Auto) 17.7 (16.0-40.0) % Luce % (Auto) 8.6 (0.0-15.0) % Eos % (Auto) 1.5 (0.0-7.0) % Baso % (Auto) 0.4 (0.0-1.5) % Neut # (Auto) 8.2 H (1.4-5.7) K/uL Lymph # (Auto) 2.0 (0.6-2.4) K/uL Luce # (Auto) 1.0 H (0.0-0.8) K/uL Eos # (Auto) 0.2 (0.0-0.7) K/uL Baso # (Auto) 0.1 (0.0-0.1) K/uL Nucleated RBC % 0.0 /100WBC Nucleated RBCs # 0 K/uL Sodium 131 L (136-146) mmol/L Potassium 3.8 (3.5-5.1) mmol/L Chloride 96 L (98-110) mmol/L Carbon Dioxide 28 (21-31) mmol/L BUN 17 (6.0-23.0) mg/dL Creatinine 0.7 (0.6-1.5) mg/dL Est Cr Clr Drug Dosing 42.77 mL/min Estimated GFR (MDRD) > 60.0 ml/min Glucose 92 (60-110) mg/dL Calcium 7.4 L (8.8-10.8) mg/dL Magnesium 1.8 (1.5-2.3) mEq/L Matteo Results Last 24 Hours: Microbiology 11/19/16 19:02 Aerobic Blood Culture - Preliminary Blood - Venous - Lab Draw NO GROWTH AFTER 2 DAYS Anaerobic Blood Culture - Preliminary NO GROWTH AFTER 2 DAYS 11/19/16 18:52 Aerobic Blood Culture - Preliminary Blood - Venous NO GROWTH AFTER 2 DAYS Anaerobic Blood Culture - Preliminary NO GROWTH AFTER 2 DAYS 11/19/16 20:52 Gram Stain - Preliminary Sputum - Expectorated Sputum Culture - Final YEAST Normal Respiratory Lino Med Orders - Current: Current Medications Acetaminophen (Tylenol) 650 mg PO Q4H PRN PRN Reason: Pain (Mild 1-3)/fever Albuterol/Ipratropium (Duoneb 3.0-0.5 Mg/3 Ml) 3 ml NEB Q4HRRT PRN PRN Reason: Shortness Of Breath/wheezing Dorzolamide/Timolol (Cosopt 2%-0.5% Ophth Soln) 0 ml EYELF BID [facility] Last Admin: 11/22/16 08:19 Dose: 1 drop Enoxaparin Sodium (Lovenox) 30 mg SUBCUT DAILY [facility] Last Admin: 11/22/16 08:18 Dose: 30 mg Levofloxacin/Dextrose 750 mg/ (Premix) 150 mls @ 150 mls/hr IV Q48H [facility] Last Admin: 11/21/16 18:02 Dose: 150 mls/hr Latanoprost (Xalatan 0.005% Ophth Soln) 0 ml EYELF BEDTIME [facility] Last Admin: 11/21/16 20:06 Dose: 1 drop Nystatin (Nystop) 0 gm TOP TID [facility] Last Admin: 11/22/16 06:34 Dose: 1 applic Ondansetron HCl (Zofran Odt) 4 mg PO Q4H PRN PRN Reason: nausea, able to take PO Prednisolone Acetate (Pred Forte 1% Ophth Susp) 0 ml EYERT BID [facility] Last Admin: 11/22/16 08:19 Dose: 1 drop Sodium Chloride (Saline Flush) 10 ml FLUSH ASDIRECTED PRN PRN Reason: Keep Vein Open Sodium Chloride (Saline Flush) 2.5 ml FLUSH ASDIRECTED PRN PRN Reason: Keep Vein Open Discontinued Medications Levofloxacin/Dextrose 750 mg/ (Premix) 150 mls @ 150 mls/hr IV Q24H [facility] Last Infusion: 11/19/16 20:10 Dose: Infused Potassium Chloride/Sodium Chloride (Normal Saline With 40 Meq Kcl) 1,000 mls @ 150 mls/hr IV ASDIRECTED [facility] Stop: 11/20/16 01:54 Last Infusion: 11/20/16 02:32 Dose: Infused Magnesium Sulfate 4 gm/ Premix 100 mls @ 50 mls/hr IV ONETIME ONE Stop: 11/21/16 15:07 Last Admin: 11/21/16 13:50 Dose: 50 mls/hr Potassium Chloride (Klor-Con M20) 40 meq PO ONETIME ONE Stop: 11/19/16 19:41 Last Admin: 11/19/16 19:53 Dose: 40 meq - Free Text/Narrative Note: I have seen this patient and have reviewed her data and laboratory studies. I concur with Dr. Zafar's exam, assessment and plan.
[2016-11-22] MEDS: Nystatin Topical Powder 15 GM Bottle TOP SCH ×3 (06:34→21:47)
[2016-11-22 07:01] LABS: CHLORIDE,CL 96 mmol/L (98-110); SODIUM,NA 131 mmol/L (136-146)
[2016-11-22] MEDS: Enoxaparin 30 MG/0.3 ML Syringe SUBCUT SCH (08:18)
[2016-11-22] MEDS: prednisoLONE Acetate 1% Ophth Susp 5 ML Bottle EYERT SCH ×2 (08:19→21:46)
[2016-11-22] MEDS: Dorzolamide/Timolol 2%-0.5% Ophth Soln 10 ML Bottle EYELF SCH ×2 (08:19→21:47)
--- NOTE | 2016-11-22 11:45 | PCM.PN ---
<Dameon Swanson - Last Filed: 11/22/16 11:39> - General Info Date of Service: 11/22/16 Admission Dx/Problem (Free Text): Pino has done well overnight. She still is having some tachypnea but overall doing better no longer wheezing when I saw her this morning she was eating a very large breakfast and seemed to be much more awake much more alert and very talkative. He is denying any nausea or vomiting, denying any headaches, denied any abdominal symptoms. She is no longer febrile. Taking in good by mouth. Will get physical therapy to work with with her Subjective Update: Patient continues to do well. She has no acute concerns his morning. She is requiring 1.5 L of nasal cannula to maintain oxygen saturation greater than 90% . She is tolerating oral intake, voiding appropriately and ambulating with physical therapy and nursing. She denies any chest pain, palpitations, nausea, vomiting, constipation, diarrhea, headache, dizziness. Nursing notes that the family is trying to get the patient to [place] and will be given paperwork to complete. Patient has been afebrile. Functional Status: Reports: Pain Controlled - Review of Systems General: Reports: Weakness, Fatigue HEENT: Reports: No Symptoms Pulmonary: Reports: Shortness of Breath Cardiovascular: Reports: No Symptoms Gastrointestinal: Reports: No Symptoms Genitourinary: Reports: No Symptoms Musculoskeletal: Reports: No Symptoms Skin: Reports: No Symptoms Neurological: Reports: No Symptoms Psychiatric: Reports: No Symptoms - Patient Data Vitals - Most Recent: Last Vital Signs Temp 97.2 F 11/22/16 08:00 Pulse 89 11/22/16 08:00 Resp 20 11/22/16 08:00 BP 150/59 H 11/22/16 08:00 Pulse Ox 92 L 11/22/16 08:00 Weight - Most Recent: 66.5 kg I&O - Last 24 Hours: Intake & Output 11/21/16 11/22/16 11/22/16 22:59 06:59 14:59 Intake Total 1310 475 Output Total 337 Balance 973 475 Lab Results Last 24 Hours: Laboratory Results - last 24 hr 11/22/16 11/22/16 Range/Units 06:21 06:21 WBC 11.48 H (4.0-11.0) K/uL RBC 3.37 L (4.30-5.90) M/uL Hgb 9.8 L (12.0-16.0) g/dL Hct 29.5 L (36.0-46.0) % MCV 87.5 (80.0-98.0) fL MCH 29.1 (27.0-32.0) pg MCHC 33.2 (31.0-37.0) g/dL RDW Std Deviation 51.3 (28.0-62.0) fl RDW Coeff of Dillon 16 H (11.0-15.0) % Plt Count 298 (150-400) K/uL MPV 9.30 (7.40-12.00) fL Neut % (Auto) 71.8 (48.0-80.0) % Lymph % (Auto) 17.7 (16.0-40.0) % [place] % (Auto) 8.6 (0.0-15.0) % Eos % (Auto) 1.5 (0.0-7.0) % Baso % (Auto) 0.4 (0.0-1.5) % Neut # (Auto) 8.2 H (1.4-5.7) K/uL Lymph # (Auto) 2.0 (0.6-2.4) K/uL [place] # (Auto) 1.0 H (0.0-0.8) K/uL Eos # (Auto) 0.2 (0.0-0.7) K/uL Baso # (Auto) 0.1 (0.0-0.1) K/uL Nucleated RBC % 0.0 /100WBC Nucleated RBCs # 0 K/uL Sodium 131 L (136-146) mmol/L Potassium 3.8 (3.5-5.1) mmol/L Chloride 96 L (98-110) mmol/L Carbon Dioxide 28 (21-31) mmol/L BUN 17 (6.0-23.0) mg/dL Creatinine 0.7 (0.6-1.5) mg/dL Est Cr Clr Drug Dosing 42.77 mL/min Estimated GFR (MDRD) > 60.0 ml/min Glucose 92 (60-110) mg/dL Calcium 7.4 L (8.8-10.8) mg/dL Magnesium 1.8 (1.5-2.3) mEq/L Matteo Results Last 24 Hours: Microbiology 11/19/16 19:02 Aerobic Blood Culture - Preliminary Blood - Venous - Lab Draw NO GROWTH AFTER 2 DAYS Anaerobic Blood Culture - Preliminary NO GROWTH AFTER 2 DAYS 11/19/16 18:52 Aerobic Blood Culture - Preliminary Blood - Venous NO GROWTH AFTER 2 DAYS Anaerobic Blood Culture - Preliminary NO GROWTH AFTER 2 DAYS 11/19/16 20:52 Gram Stain - Preliminary Sputum - Expectorated Sputum Culture - Final YEAST Normal Respiratory Lino Med Orders - Current: Current Medications Acetaminophen (Tylenol) 650 mg PO Q4H PRN PRN Reason: Pain (Mild 1-3)/fever Albuterol/Ipratropium (Duoneb 3.0-0.5 Mg/3 Ml) 3 ml NEB Q4HRRT PRN PRN Reason: Shortness Of Breath/wheezing Dorzolamide/Timolol (Cosopt 2%-0.5% Ophth Soln) 0 ml EYELF BID [facility] Last Admin: 11/22/16 08:19 Dose: 1 drop Enoxaparin Sodium (Lovenox) 30 mg SUBCUT DAILY [facility] Last Admin: 11/22/16 08:18 Dose: 30 mg Levofloxacin/Dextrose 750 mg/ (Premix) 150 mls @ 150 mls/hr IV Q48H [facility] Last Admin: 11/21/16 18:02 Dose: 150 mls/hr Latanoprost (Xalatan 0.005% Ophth Soln) 0 ml EYELF BEDTIME [facility] Last Admin: 11/21/16 20:06 Dose: 1 drop Nystatin (Nystop) 0 gm TOP TID [facility] Last Admin: 11/22/16 06:34 Dose: 1 applic Ondansetron HCl (Zofran Odt) 4 mg PO Q4H PRN PRN Reason: nausea, able to take PO Prednisolone Acetate (Pred Forte 1% Ophth Susp) 0 ml EYERT BID [facility] Last Admin: 11/22/16 08:19 Dose: 1 drop Sodium Chloride (Saline Flush) 10 ml FLUSH ASDIRECTED PRN PRN Reason: Keep Vein Open Sodium Chloride (Saline Flush) 2.5 ml FLUSH ASDIRECTED PRN PRN Reason: Keep Vein Open Discontinued Medications Levofloxacin/Dextrose 750 mg/ (Premix) 150 mls @ 150 mls/hr IV Q24H [facility] Last Infusion: 11/19/16 20:10 Dose: Infused Potassium Chloride/Sodium Chloride (Normal Saline With 40 Meq Kcl) 1,000 mls @ 150 mls/hr IV ASDIRECTED [facility] Stop: 11/20/16 01:54 Last Infusion: 11/20/16 02:32 Dose: Infused Magnesium Sulfate 4 gm/ Premix 100 mls @ 50 mls/hr IV ONETIME ONE Stop: 11/21/16 15:07 Last Admin: 11/21/16 13:50 Dose: 50 mls/hr Potassium Chloride (Klor-Con M20) 40 meq PO ONETIME ONE Stop: 11/19/16 19:41 Last Admin: 11/19/16 19:53 Dose: 40 meq - Exam Quality Assessment: Supplemental Oxygen (1.5 L nasal cannula), DVT Prophylaxis General: Alert, Oriented, Cooperative, No Acute Distress Neck: Supple Lungs: Clear to Auscultation, Normal Respiratory Effort Cardiovascular: Regular Rate, Regular Rhythm GI/Abdominal Exam: Normal Bowel Sounds, Soft, Non-Tender, No Organomegaly, No Distention, No Abnormal Bruit, No Mass Extremities: Normal Inspection, Normal Range of Motion, Non-Tender, No Pedal Edema, Normal Capillary Refill Peripheral Pulses: 2+: Radial (L), Radial (R), Posterior Tibial (L), Posterior Tibial (R) Skin: Warm, Dry, Intact Wound/Incisions: Healing Well Neurological: No New Focal Deficit Psy/Mental Status: Alert, Normal Affect, Normal Mood - Problem List & Annotations (1) Urinary tract infection SNOMED Code(s): 17328078 Code(s): N39.0 - URINARY TRACT INFECTION, SITE NOT SPECIFIED Status: Acute Current Visit: Yes (2) Hypoxia SNOMED Code(s): 410847472, 111875340 Code(s): R09.02 - HYPOXEMIA Status: Acute Priority: High Current Visit : Yes (3) PNA (pneumonia) SNOMED Code(s): 505572925 Code(s): J18.9 - PNEUMONIA, UNSPECIFIED ORGANISM Status: Acute Priority: High Current Visit: Yes - Problem List Review Problem List Initiated/Reviewed/Updated: Yes - Plan Plan:: Assessment/plan: #1. Pneumonia -Sputum cultures showing mixed lino growth - blood cultures x2 days -Continue Levaquin 750 mg IV along with dual nebs every 6 hours ,oxygenation support as needed. Can consider switching the patient over to by mouth Levaquin tomorrow. -White blood cell count did elevate slightly from 11.18-11.48. We'll monitor with CBC tomorrow. Clinically, the patient looks well. 2. Urinary analysis shows positive for UTI - Continue IV Levaquin 3. Hypokalemia -Resolved 4. Skin breakdown/excoriation/ulceration of vaginal fold along with inner thigh likely secondary to fungal infection -Continue Topical nystatin powder 1000 mg 3 times a day Discharge: Family will complete paperwork and we'll try to get the patient to [facility] on Thursday. <Dennis Gutierrez - Last Filed: 11/22/16 13:05> - Patient Data Vitals - Most Recent: Last Vital Signs Temp 36.2 C 11/22/16 08:00 Pulse 89 11/22/16 08:00 Resp 20 11/22/16 08:00 BP 150/59 H 11/22/16 08:00 Pulse Ox 92 L 11/22/16 08:00 I&O - Last 24 Hours: Intake & Output 11/21/16 11/22/16 11/22/16 22:59 06:59 14:59 Intake Total 1310 475 Output Total 337 Balance 973 475 Lab Results Last 24 Hours: Laboratory Results - last 24 hr 11/22/16 11/22/16 Range/Units 06:21 06:21 WBC 11.48 H (4.0-11.0) K/uL RBC 3.37 L (4.30-5.90) M/uL Hgb 9.8 L (12.0-16.0) g/dL Hct 29.5 L (36.0-46.0) % MCV 87.5 (80.0-98.0) fL MCH 29.1 (27.0-32.0) pg MCHC 33.2 (31.0-37.0) g/dL RDW Std Deviation 51.3 (28.0-62.0) fl RDW Coeff of Dillon 16 H (11.0-15.0) % Plt Count 298 (150-400) K/uL MPV 9.30 (7.40-12.00) fL Neut % (Auto) 71.8 (48.0-80.0) % Lymph % (Auto) 17.7 (16.0-40.0) % [place] % (Auto) 8.6 (0.0-15.0) % Eos % (Auto) 1.5 (0.0-7.0) % Baso % (Auto) 0.4 (0.0-1.5) % Neut # (Auto) 8.2 H (1.4-5.7) K/uL Lymph # (Auto) 2.0 (0.6-2.4) K/uL [place] # (Auto) 1.0 H (0.0-0.8) K/uL Eos # (Auto) 0.2 (0.0-0.7) K/uL Baso # (Auto) 0.1 (0.0-0.1) K/uL Nucleated RBC % 0.0 /100WBC Nucleated RBCs # 0 K/uL Sodium 131 L (136-146) mmol/L Potassium 3.8 (3.5-5.1) mmol/L Chloride 96 L (98-110) mmol/L Carbon Dioxide 28 (21-31) mmol/L BUN 17 (6.0-23.0) mg/dL Creatinine 0.7 (0.6-1.5) mg/dL Est Cr Clr Drug Dosing 42.77 mL/min Estimated GFR (MDRD) > 60.0 ml/min Glucose 92 (60-110) mg/dL Calcium 7.4 L (8.8-10.8) mg/dL Magnesium 1.8 (1.5-2.3) mEq/L Matteo Results Last 24 Hours: Microbiology 11/19/16 19:02 Aerobic Blood Culture - Preliminary Blood - Venous - Lab Draw NO GROWTH AFTER 2 DAYS Anaerobic Blood Culture - Preliminary NO GROWTH AFTER 2 DAYS 11/19/16 18:52 Aerobic Blood Culture - Preliminary Blood - Venous NO GROWTH AFTER 2 DAYS Anaerobic Blood Culture - Preliminary NO GROWTH AFTER 2 DAYS 11/19/16 20:52 Gram Stain - Preliminary Sputum - Expectorated Sputum Culture - Final YEAST Normal Respiratory Lino Med Orders - Current: Current Medications Acetaminophen (Tylenol) 650 mg PO Q4H PRN PRN Reason: Pain (Mild 1-3)/fever Albuterol/Ipratropium (Duoneb 3.0-0.5 Mg/3 Ml) 3 ml NEB Q4HRRT PRN PRN Reason: Shortness Of Breath/wheezing Dorzolamide/Timolol (Cosopt 2%-0.5% Ophth Soln) 0 ml EYELF BID [facility] Last Admin: 11/22/16 08:19 Dose: 1 drop Enoxaparin Sodium (Lovenox) 30 mg SUBCUT DAILY [facility] Last Admin: 11/22/16 08:18 Dose: 30 mg Levofloxacin/Dextrose 750 mg/ (Premix) 150 mls @ 150 mls/hr IV Q48H [facility] Last Admin: 11/21/16 18:02 Dose: 150 mls/hr Latanoprost (Xalatan 0.005% Ophth Soln) 0 ml EYELF BEDTIME [facility] Last Admin: 11/21/16 20:06 Dose: 1 drop Nystatin (Nystop) 0 gm TOP TID [facility] Last Admin: 11/22/16 06:34 Dose: 1 applic Ondansetron HCl (Zofran Odt) 4 mg PO Q4H PRN PRN Reason: nausea, able to take PO Prednisolone Acetate (Pred Forte 1% Ophth Susp) 0 ml EYERT BID [facility] Last Admin: 11/22/16 08:19 Dose: 1 drop Sodium Chloride (Saline Flush) 10 ml FLUSH ASDIRECTED PRN PRN Reason: Keep Vein Open Sodium Chloride (Saline Flush) 2.5 ml FLUSH ASDIRECTED PRN PRN Reason: Keep Vein Open Discontinued Medications Levofloxacin/Dextrose 750 mg/ (Premix) 150 mls @ 150 mls/hr IV Q24H [facility] Last Infusion: 11/19/16 20:10 Dose: Infused Potassium Chloride/Sodium Chloride (Normal Saline With 40 Meq Kcl) 1,000 mls @ 150 mls/hr IV ASDIRECTED [facility] Stop: 11/20/16 01:54 Last Infusion: 11/20/16 02:32 Dose: Infused Magnesium Sulfate 4 gm/ Premix 100 mls @ 50 mls/hr IV ONETIME ONE Stop: 11/21/16 15:07 Last Admin: 11/21/16 13:50 Dose: 50 mls/hr Potassium Chloride (Klor-Con M20) 40 meq PO ONETIME ONE Stop: 11/19/16 19:41 Last Admin: 11/19/16 19:53 Dose: 40 meq - Free Text/Narrative Note: Dr. Ruben Gutierrez MD notes: I have observed this patient, I have seen her ambulating, have looked at her data and have discussed her ongoing care with Dr. Swanson. I agree with the assessments and plan.
[2016-11-22] MEDS: Latanoprost 0.005% Ophth Soln 2.5 ML Bottle EYELF SCH (21:50)
[2016-11-23] MEDS: Acetaminophen 325 MG Tab PO PRN (03:11)
[2016-11-23] MEDS: Nystatin Topical Powder 15 GM Bottle TOP SCH ×3 (06:02→21:04)
[2016-11-23 06:28] LABS: CHLORIDE,CL 96 mmol/L (98-110); SODIUM,NA 130 mmol/L (136-146)
[2016-11-23] MEDS: Enoxaparin 30 MG/0.3 ML Syringe SUBCUT SCH (08:50)
[2016-11-23] MEDS: prednisoLONE Acetate 1% Ophth Susp 5 ML Bottle EYERT SCH ×2 (08:51→20:39)
[2016-11-23] MEDS: Dorzolamide/Timolol 2%-0.5% Ophth Soln 10 ML Bottle EYELF SCH ×2 (08:51→20:39)
[2016-11-23] MEDS: Levofloxacin/Dextrose 5%-Water 750 MG in Premix Bag 1 BAG IV SCH (17:05)
--- NOTE | 2016-11-23 17:20 | PCM.PN ---
<Luis E Zafar Z - Last Filed: 11/23/16 17:14> - General Info Date of Service: 11/23/16 Admission Dx/Problem (Free Text): patient has done quite well since initially being admitted. she is only requiring 1 L in terms of O2 support. Her WBC count is still slightly trending upwards however she is afebrile non-tachycardic not to Neck with good pressures. And her UTI should also be covered by the antibiotic Levaquin that the patient is on for her lower lobe pneumonia. As per the family's request the patient will start the paperwork in terms of going to longterm. No nausea no vomiting good oral intake no diarrhea or constipation no febrile events or any other systemic findings. - Review of Systems General: Reports: Weakness, Fatigue HEENT: Reports: No Symptoms Pulmonary: Reports: No Symptoms Cardiovascular: Reports: No Symptoms Gastrointestinal: Reports: No Symptoms Genitourinary: Reports: No Symptoms Musculoskeletal: Reports: No Symptoms Neurological: Reports: No Symptoms - Patient Data Vitals - Most Recent: Last Vital Signs Temp 37.4 C 11/23/16 16:00 Pulse 88 11/23/16 16:00 Resp 20 11/23/16 16:00 BP 140/57 L 11/23/16 16:00 Pulse Ox 97 11/23/16 16:00 Weight - Most Recent: 66.5 kg I&O - Last 24 Hours: Intake & Output 11/23/16 11/23/16 11/23/16 06:59 14:59 22:59 Intake Total 400 990 Output Total 500 Balance -100 990 Lab Results Last 24 Hours: Laboratory Results - last 24 hr 11/23/16 11/23/16 Range/Units 05:55 05:55 WBC 16.85 H (4.0-11.0) K/uL RBC 3.34 L (4.30-5.90) M/uL Hgb 9.6 L (12.0-16.0) g/dL Hct 29.1 L (36.0-46.0) % MCV 87.1 (80.0-98.0) fL MCH 28.7 (27.0-32.0) pg MCHC 33.0 (31.0-37.0) g/dL RDW Std Deviation 51.2 (28.0-62.0) fl RDW Coeff of Dillon 16 H (11.0-15.0) % Plt Count 312 (150-400) K/uL MPV 9.50 (7.40-12.00) fL Neut % (Auto) 82.8 H (48.0-80.0) % Lymph % (Auto) 9.2 L (16.0-40.0) % Walker % (Auto) 7.7 (0.0-15.0) % Eos % (Auto) 0.1 (0.0-7.0) % Baso % (Auto) 0.2 (0.0-1.5) % Neut # (Auto) 14.0 H (1.4-5.7) K/uL Lymph # (Auto) 1.6 (0.6-2.4) K/uL Walker # (Auto) 1.3 H (0.0-0.8) K/uL Eos # (Auto) 0.0 (0.0-0.7) K/uL Baso # (Auto) 0.0 (0.0-0.1) K/uL Nucleated RBC % 0.0 /100WBC Nucleated RBCs # 0 K/uL Sodium 130 L (136-146) mmol/L Potassium 3.8 (3.5-5.1) mmol/L Chloride 96 L (98-110) mmol/L Carbon Dioxide 26 (21-31) mmol/L BUN 13 (6.0-23.0) mg/dL Creatinine 0.7 (0.6-1.5) mg/dL Est Cr Clr Drug Dosing 42.77 mL/min Estimated GFR (MDRD) > 60.0 ml/min Glucose 107 (60-110) mg/dL Calcium 7.8 L (8.8-10.8) mg/dL Matteo Results Last 24 Hours: Microbiology 11/19/16 19:02 Aerobic Blood Culture - Preliminary Blood - Venous - Lab Draw NO GROWTH AFTER 3 DAYS Anaerobic Blood Culture - Preliminary NO GROWTH AFTER 3 DAYS 11/19/16 18:52 Aerobic Blood Culture - Preliminary Blood - Venous NO GROWTH AFTER 3 DAYS Anaerobic Blood Culture - Preliminary NO GROWTH AFTER 3 DAYS Med Orders - Current: Current Medications Acetaminophen (Tylenol) 650 mg PO Q4H PRN PRN Reason: Pain (Mild 1-3)/fever Last Admin: 11/23/16 03:11 Dose: 650 mg Albuterol/Ipratropium (Duoneb 3.0-0.5 Mg/3 Ml) 3 ml NEB Q4HRRT PRN PRN Reason: Shortness Of Breath/wheezing Dorzolamide/Timolol (Cosopt 2%-0.5% Ophth Soln) 0 ml EYELF BID [facility] Last Admin: 11/23/16 08:51 Dose: 1 drop Enoxaparin Sodium (Lovenox) 30 mg SUBCUT DAILY [facility] Last Admin: 11/23/16 08:50 Dose: 30 mg Levofloxacin/Dextrose 750 mg/ (Premix) 150 mls @ 150 mls/hr IV Q48H [facility] Last Admin: 11/23/16 17:05 Dose: 150 mls/hr Latanoprost (Xalatan 0.005% Ophth Soln) 0 ml EYELF BEDTIME [facility] Last Admin: 11/22/16 21:50 Dose: 1 drop Nystatin (Nystop) 0 gm TOP TID [facility] Last Admin: 11/23/16 14:08 Dose: 15 applic Ondansetron HCl (Zofran Odt) 4 mg PO Q4H PRN PRN Reason: nausea, able to take PO Prednisolone Acetate (Pred Forte 1% Ophth Susp) 0 ml EYERT BID [facility] Last Admin: 11/23/16 08:51 Dose: 1 drop Sodium Chloride (Saline Flush) 10 ml FLUSH ASDIRECTED PRN PRN Reason: Keep Vein Open Sodium Chloride (Saline Flush) 2.5 ml FLUSH ASDIRECTED PRN PRN Reason: Keep Vein Open Discontinued Medications Levofloxacin/Dextrose 750 mg/ (Premix) 150 mls @ 150 mls/hr IV Q24H [facility] Last Infusion: 11/19/16 20:10 Dose: Infused Potassium Chloride/Sodium Chloride (Normal Saline With 40 Meq Kcl) 1,000 mls @ 150 mls/hr IV ASDIRECTED [facility] Stop: 11/20/16 01:54 Last Infusion: 11/20/16 02:32 Dose: Infused Magnesium Sulfate 4 gm/ Premix 100 mls @ 50 mls/hr IV ONETIME ONE Stop: 11/21/16 15:07 Last Admin: 11/21/16 13:50 Dose: 50 mls/hr Potassium Chloride (Klor-Con M20) 40 meq PO ONETIME ONE Stop: 11/19/16 19:41 Last Admin: 11/19/16 19:53 Dose: 40 meq - Exam Quality Assessment: Supplemental Oxygen General: Alert, Oriented HEENT: Pupils Equal Neck: Supple, Trachea Midline Lungs: Clear to Auscultation, Decreased Breath Sounds Cardiovascular: Regular Rate GI/Abdominal Exam: Normal Bowel Sounds, Soft, Non-Tender Extremities: Normal Inspection, Limited Range of Motion - Problem List & Annotations (1) Hypoxia SNOMED Code(s): 233937298, 957101754 Code(s): R09.02 - HYPOXEMIA Status: Acute Priority: High Current Visit : Yes (2) PNA (pneumonia) SNOMED Code(s): 950814935 Code(s): J18.9 - PNEUMONIA, UNSPECIFIED ORGANISM Status: Acute Priority: High Current Visit: Yes - Problem List Review Problem List Initiated/Reviewed/Updated: Yes - My Orders Last 24 Hours: My Active Orders 11/23/16 11:53 Communication Order [RC] ROUTINE - Plan Plan:: Assessment/plan: #1. Pneumonia -Sputum cultures showing mixed lino growth - blood cultures x2 days -Continue Levaquin 750 mg IV along with dual nebs every 6 hours ,oxygenation support as needed. Can consider switching the patient over to by mouth Levaquin tomorrow. -White blood cell count did elevate slightly from 11.18-11.48. We'll monitor with CBC tomorrow. Clinically, the patient looks well. 2. Urinary analysis shows positive for UTI - Continue IV Levaquin 3. Hypokalemia -Resolved 4. Skin breakdown/excoriation/ulceration of vaginal fold along with inner thigh likely secondary to fungal infection -Continue Topical nystatin powder 1000 mg 3 times a day Discharge: Family will complete paperwork and we'll try to get the patient to [facility] on Thursday. <Dennis Gutierrez - Last Filed: 11/23/16 18:09> - Patient Data Vitals - Most Recent: Last Vital Signs Temp 37.4 C 11/23/16 16:00 Pulse 88 11/23/16 16:00 Resp 20 11/23/16 16:00 BP 140/57 L 11/23/16 16:00 Pulse Ox 97 11/23/16 16:00 I&O - Last 24 Hours: Intake & Output 0811/23/16 11/23/16 06:59 14:59 22:59 Intake Total 400 990 Output Total 500 Balance -100 990 Lab Results Last 24 Hours: Laboratory Results - last 24 hr 11/23/16 11/23/16 Range/Units 05:55 05:55 WBC 16.85 H (4.0-11.0) K/uL RBC 3.34 L (4.30-5.90) M/uL Hgb 9.6 L (12.0-16.0) g/dL Hct 29.1 L (36.0-46.0) % MCV 87.1 (80.0-98.0) fL MCH 28.7 (27.0-32.0) pg MCHC 33.0 (31.0-37.0) g/dL RDW Std Deviation 51.2 (28.0-62.0) fl RDW Coeff of Dillon 16 H (11.0-15.0) % Plt Count 312 (150-400) K/uL MPV 9.50 (7.40-12.00) fL Neut % (Auto) 82.8 H (48.0-80.0) % Lymph % (Auto) 9.2 L (16.0-40.0) % Walker % (Auto) 7.7 (0.0-15.0) % Eos % (Auto) 0.1 (0.0-7.0) % Baso % (Auto) 0.2 (0.0-1.5) % Neut # (Auto) 14.0 H (1.4-5.7) K/uL Lymph # (Auto) 1.6 (0.6-2.4) K/uL Walker # (Auto) 1.3 H (0.0-0.8) K/uL Eos # (Auto) 0.0 (0.0-0.7) K/uL Baso # (Auto) 0.0 (0.0-0.1) K/uL Nucleated RBC % 0.0 /100WBC Nucleated RBCs # 0 K/uL Sodium 130 L (136-146) mmol/L Potassium 3.8 (3.5-5.1) mmol/L Chloride 96 L (98-110) mmol/L Carbon Dioxide 26 (21-31) mmol/L BUN 13 (6.0-23.0) mg/dL Creatinine 0.7 (0.6-1.5) mg/dL Est Cr Clr Drug Dosing 42.77 mL/min Estimated GFR (MDRD) > 60.0 ml/min Glucose 107 (60-110) mg/dL Calcium 7.8 L (8.8-10.8) mg/dL Matteo Results Last 24 Hours: Microbiology 11/19/16 19:02 Aerobic Blood Culture - Preliminary Blood - Venous - Lab Draw NO GROWTH AFTER 3 DAYS Anaerobic Blood Culture - Preliminary NO GROWTH AFTER 3 DAYS 11/19/16 18:52 Aerobic Blood Culture - Preliminary Blood - Venous NO GROWTH AFTER 3 DAYS Anaerobic Blood Culture - Preliminary NO GROWTH AFTER 3 DAYS Med Orders - Current: Current Medications Acetaminophen (Tylenol) 650 mg PO Q4H PRN PRN Reason: Pain (Mild 1-3)/fever Last Admin: 11/23/16 03:11 Dose: 650 mg Albuterol/Ipratropium (Duoneb 3.0-0.5 Mg/3 Ml) 3 ml NEB Q4HRRT PRN PRN Reason: Shortness Of Breath/wheezing Dorzolamide/Timolol (Cosopt 2%-0.5% Ophth Soln) 0 ml EYELF BID [facility] Last Admin: 11/23/16 08:51 Dose: 1 drop Enoxaparin Sodium (Lovenox) 30 mg SUBCUT DAILY [facility] Last Admin: 11/23/16 08:50 Dose: 30 mg Levofloxacin/Dextrose 750 mg/ (Premix) 150 mls @ 150 mls/hr IV Q48H [facility] Last Admin: 11/23/16 17:05 Dose: 150 mls/hr Latanoprost (Xalatan 0.005% Ophth Soln) 0 ml EYELF BEDTIME [facility] Last Admin: 11/22/16 21:50 Dose: 1 drop Nystatin (Nystop) 0 gm TOP TID [facility] Last Admin: 11/23/16 14:08 Dose: 15 applic Ondansetron HCl (Zofran Odt) 4 mg PO Q4H PRN PRN Reason: nausea, able to take PO Prednisolone Acetate (Pred Forte 1% Ophth Susp) 0 ml EYERT BID [facility] Last Admin: 11/23/16 08:51 Dose: 1 drop Sodium Chloride (Saline Flush) 10 ml FLUSH ASDIRECTED PRN PRN Reason: Keep Vein Open Sodium Chloride (Saline Flush) 2.5 ml FLUSH ASDIRECTED PRN PRN Reason: Keep Vein Open Discontinued Medications Levofloxacin/Dextrose 750 mg/ (Premix) 150 mls @ 150 mls/hr IV Q24H [facility] Last Infusion: 11/19/16 20:10 Dose: Infused Potassium Chloride/Sodium Chloride (Normal Saline With 40 Meq Kcl) 1,000 mls @ 150 mls/hr IV ASDIRECTED [facility] Stop: 11/20/16 01:54 Last Infusion: 11/20/16 02:32 Dose: Infused Magnesium Sulfate 4 gm/ Premix 100 mls @ 50 mls/hr IV ONETIME ONE Stop: 11/21/16 15:07 Last Admin: 11/21/16 13:50 Dose: 50 mls/hr Potassium Chloride (Klor-Con M20) 40 meq PO ONETIME ONE Stop: 11/19/16 19:41 Last Admin: 11/19/16 19:53 Dose: 40 meq - My Orders Last 24 Hours: My Active Orders 11/23/16 14:09 Discontinue Telemetry Monitoring [Cardiac Monitoring Discontinue] [RC] Click To Edit - Free Text/Narrative Note: Dr. Ruben Gutierrez MD notes: I have examined this patient today. I have evaluated her data. I have discussed her situation in detail with Dr. Zafar and with her son. I concur with Dr. Zafar's assessment and plan for her care.
[2016-11-23] MEDS: Latanoprost 0.005% Ophth Soln 2.5 ML Bottle EYELF SCH (20:43)
[2016-11-24 05:27] LABS: CHLORIDE,CL 97 mmol/L (98-110); SODIUM,NA 131 mmol/L (136-146)
[2016-11-24] MEDS: Nystatin Topical Powder 15 GM Bottle TOP SCH ×2 (06:12→13:54)
[2016-11-24] MEDS: Dorzolamide/Timolol 2%-0.5% Ophth Soln 10 ML Bottle EYELF SCH (08:48)
[2016-11-24] MEDS: prednisoLONE Acetate 1% Ophth Susp 5 ML Bottle EYERT SCH (08:49)
[2016-11-24] MEDS: Enoxaparin 30 MG/0.3 ML Syringe SUBCUT SCH (08:49)
[2016-11-24] MEDS: Acetaminophen 325 MG Tab PO PRN (09:05)
[2016-11-24 13:58] VITALS: BP 130/62
--- NOTE | 2016-11-26 00:13 | PCM.DCSUM1 ---
Discharge Summary - Hospital Course Free Text/Narrative:: Discharge Summary Date of admission: 11/19/2016 Date of discharge: 11/24/2016 Admitting diagnosis: #1. Left lower lobe pneumonia likely community-acquired #2. Hypokalemia #3. Fungal infection of the vagina resulting in skin breakdown/excoriation/ ulceration #4. Hypoxia requiring oxygen support #5. Confusion/altered mental status secondary to left lower lobe pneumonia Discharge diagnoses: #1. Left lower lobe pneumonia community-acquired now resolving #2. UTI #3. Fungal infection of the vagina resulting in skin breakdown excoriation/ ulceration on powder nystatin #4. Venerable adult requiring higher level of care in [facility] Consultations: None Procedures: None Hospitalization course: Patient was admitted on 11/19/2016 secondary to confusion , fecal incontinence, elevated WBC, fevers, chest x-ray showing left lower lobe pneumonia, cough, hypokalemia, hypoxia, and altered mental status. Patient was determined to have community-acquired pneumonia and was started on Levaquin IV along with replacement of potassium nystatin powder for her fungal infection of her vagina and oxygenation support. Shouldn't did very well over the course of her hospitalization stay and by 11/21/2016 the patient was felt stable enough to go home and the family agreed however upon ambulation it was determined that the patient's oxygenation was the low to mid 80s as a result the patient was going to require an did meet the need for home oxygen however it was found out that the patient would not be covered under Medicare and the patient could not afford to get/PA for home oxygen on their own. As a result the patient stayed over the weekend in order to help wean the patient off her oxygen. The patient did quite well over the weekend she did have one episode of elevated WBC however that did start to trend back downwards. And by 11/24/2016 it was determined that the patient was stable enough to be discharged. By then the family had it chance to think about the patient's condition and determined that it would be more appropriate for the patient to go to [facility]. Disposition on discharge:[facility] Condition on discharge: Patient was stable with improving WBC, afebrile not hypoxic not to Not tachycardic. Discharge medications: Continuation of home medication along with Levaquin for 7 days as well as nystatin powder. Follow-up instructions: Patient should be followed up by Dr. Iqbal at the [facility] - Discharge Data Discharge Date: 11/24/16 Discharge Disposition: DC/Tfer to Long-Term Care [facility] Condition: Good - Discharge Diagnosis/Problem(s) (1) Hypoxia SNOMED Code(s): 634048828, 372154595 ICD Code: R09.02 - HYPOXEMIA Status: Acute Priority: High (2) PNA (pneumonia) SNOMED Code(s): 060327816 ICD Code: J18.9 - PNEUMONIA, UNSPECIFIED ORGANISM Status: Acute Priority : High (3) Urinary tract infection SNOMED Code(s): 17719897 ICD Code: N39.0 - URINARY TRACT INFECTION, SITE NOT SPECIFIED Status: Acute Priority: High - Patient Summary/Data Consults: Consultations 11/20/16 14:29 Consult to Physical Therapy [PT Evaluation and Treatment] [CONS] Routine - Patient Instructions Diet: Usual Diet as Tolerated Activity: As Tolerated Driving: Do Not Drive Showering/Bathing: May Shower Notify Provider of: Fever, Increased Pain, Swelling and Redness, Drainage - Discharge Plan Prescriptions/Med Rec: Levofloxacin [Levaquin] 750 mg PO DAILY #7 tablet Nystatin [Nystop] 100,000 units TOP TID #30 bottle Home Medications: Home Meds Aspirin [Halfprin] 81 mg PO DAILY 06/06/14 [History] Dorzolamide/Timolol [Cosopt 2%-0.5% Ophth Soln] 1 drop EYELF BID 06/06/14 [ History] Felodipine [Felodipine ER] 5 mg PO DAILY 06/06/14 [History] Fish Oil/[place]-3 Fatty Acids [Fish Oil] 500 mg PO DAILY 06/06/14 [History] Latanoprost 1 drop EYELF BEDTIME 06/06/14 [History] Losartan/Hydrochlorothiazide [Losartan-HCTZ 100-25 MG] 1 tab PO DAILY 06/06/14 [ History] Potassium Chloride [Klor-Con 10] 10 meq PO DAILY 06/06/14 [History] Mirtazapine 15 mg PO DAILY 11/19/16 [History] Multivitamin with Minerals [Multiple Vitamin] 1 tab PO DAILY 11/19/16 [History] atorvaSTATin [Lipitor] 10 mg PO DAILY 11/19/16 [History] prednisoLONE Acetate [Pred Forte 1% Ophth Susp] 1 drop EYERT BID 11/19/16 [ History] Levofloxacin [Levaquin] 750 mg PO DAILY #7 tablet 11/24/16 [Rx] Nystatin [Nystop] 100,000 units TOP TID #30 bottle 11/24/16 [Rx] Patient Handouts: Nystatin topical powder, Levofloxacin tablets, Community- Acquired Pneumonia, Adult, [id number] Referrals: Brody Iqbal MD [Primary Care Provider] - 11/27/16 - Discharge Summary/Plan Comment DC Time >30 min.: No - Patient Data Vitals - Most Recent: Last Vital Signs Temp 36.2 C 11/24/16 12:00 Pulse 89 11/24/16 12:00 Resp 20 11/24/16 12:00 BP 130/62 11/24/16 12:00 Pulse Ox 92 L 11/24/16 12:00 Weight - Most Recent: 66 kg OJ Results - Last 24 hrs: Microbiology 11/19/16 19:02 Aerobic Blood Culture - Final Blood - Venous - Lab Draw NO GROWTH AFTER 5 DAYS Anaerobic Blood Culture - Final NO GROWTH AFTER 5 DAYS 11/19/16 18:52 Aerobic Blood Culture - Final Blood - Venous NO GROWTH AFTER 5 DAYS Anaerobic Blood Culture - Final NO GROWTH AFTER 5 DAYS Med Orders - Current: Current Medications Discontinued Medications Acetaminophen (Tylenol) 650 mg PO Q4H PRN PRN Reason: Pain (Mild 1-3)/fever Last Admin: 11/24/16 09:05 Dose: 650 mg Albuterol/Ipratropium (Duoneb 3.0-0.5 Mg/3 Ml) 3 ml NEB Q4HRRT PRN PRN Reason: Shortness Of Breath/wheezing Dorzolamide/Timolol (Cosopt 2%-0.5% Ophth Soln) 0 ml EYELF BID [facility] Last Admin: 11/24/16 08:48 Dose: 1 drop Enoxaparin Sodium (Lovenox) 30 mg SUBCUT DAILY [facility] Last Admin: 11/24/16 08:49 Dose: 30 mg Levofloxacin/Dextrose 750 mg/ (Premix) 150 mls @ 150 mls/hr IV Q24H [facility] Last Infusion: 11/19/16 20:10 Dose: Infused Potassium Chloride/Sodium Chloride (Normal Saline With 40 Meq Kcl) 1,000 mls @ 150 mls/hr IV ASDIRECTED [facility] Stop: 11/20/16 01:54 Last Infusion: 11/20/16 02:32 Dose: Infused Levofloxacin/Dextrose 750 mg/ (Premix) 150 mls @ 150 mls/hr IV Q48H [facility] Last Admin: 11/23/16 17:05 Dose: 150 mls/hr Magnesium Sulfate 4 gm/ Premix 100 mls @ 50 mls/hr IV ONETIME ONE Stop: 11/21/16 15:07 Last Admin: 11/21/16 13:50 Dose: 50 mls/hr Latanoprost (Xalatan 0.005% Ophth Soln) 0 ml EYELF BEDTIME [facility] Last Admin: 11/23/16 20:43 Dose: 1 drop Nystatin (Nystop) 0 gm TOP TID [facility] Last Admin: 11/24/16 13:54 Dose: 15 applic Ondansetron HCl (Zofran Odt) 4 mg PO Q4H PRN PRN Reason: nausea, able to take PO Potassium Chloride (Klor-Con M20) 40 meq PO ONETIME ONE Stop: 11/19/16 19:41 Last Admin: 11/19/16 19:53 Dose: 40 meq Prednisolone Acetate (Pred Forte 1% Ophth Susp) 0 ml EYERT BID [facility] Last Admin: 11/24/16 08:49 Dose: 1 drop Sodium Chloride (Saline Flush) 10 ml FLUSH ASDIRECTED PRN PRN Reason: Keep Vein Open Sodium Chloride (Saline Flush) 2.5 ml FLUSH ASDIRECTED PRN PRN Reason: Keep Vein Open *Q Meaningful Use (DIS) - VTE *Q VTE Criteria *Q: - Stroke *Q Stroke Criteria *Q: - AMI *Q AMI Criteria *Q:
== END 2016-11-24 14:50 | DRG 194 ==
LOC: MW.MS 15:11
PROVIDERS: ADMIT Internal Medicine; ATTEND Internal Medicine
DX: J18.9 Pneumonia, unspecified organism (principal); N39.0 Urinary tract infection, site not specified; E87.6 Hypokalemia; R09.02 Hypoxemia; L98.491 Non-pressure chronic ulcer of skin of other sites limited to breakdown of skin; L08.89 Other specified local infections of the skin and subcutaneous tissue; R06.82 Tachypnea, not elsewhere classified; I10 Essential (primary) hypertension; F41.9 Anxiety disorder, unspecified; Z88.8 Allergy status to other drugs, medicaments and biological substances; Z79.899 Other long term (current) drug therapy
CPT/HCPCS: 36415; 71010; 71010-26; 80048; 80053; 81001; 83735; 85025; 87040; 87070; 87205; 87804; 87899; 97110-GP; 97161-GP; 97530-GP; A9270-GY; J1650; J1956; J3475; J3480

== ENCOUNTER 2017-04-21 14:18 | Inpatient (IN) | payer MEDICARE, BC ==
[2017-04-21] MEDS ORDERED: Sodium Chloride 0.9% 10 ML Syringe FLUSH PRN (14:22)
[2017-04-21] MEDS ORDERED: Sodium Chloride 0.9% 2.5 ML Syringe FLUSH PRN (14:22)
[2017-04-21] MEDS ORDERED: Sodium Chloride 0.9% 1,000 ML IV ONE (14:22)
--- NOTE | 2017-04-21 14:26 | EDM.PDOC ---
ED HPI GENERAL MEDICAL PROBLEM - General Stated Complaint: LOW BP Time Seen by Provider: 04/21/17 14:19 - History of Present Illness INITIAL COMMENTS - FREE TEXT/NARRATIVE: HISTORY AND PHYSICAL: History of present illness: The patient is an 87-year-old female with a history of hypertension hypercholesterolemia mild chronic renal insufficiency and TIA who was sent from [facility] by María Jay for evaluation of low sodium and hypotension. According to María Jay the provider at [facility], this patient was seen by her on Thursday, 4 days ago, for cold symptoms and a fall. At that time she had a negative chest x-ray and negative influenza and a sodium of 123 with a BUN of 17 and creatinine of 1.24 and a GFR of 41. The patient was advised on stopping some of her medication and she was placed on Levaquin every other day and she was closely monitored over the weekend and return today for a follow- up. Today she has a CBC with a white count of 12 and a sodium of 121, BUN of 21 and a creatinine of 1.05. The patient was complaining of being dizzy and weak on today's visit at the clinic and her blood pressure was noted by them to be 80s/50s. The provider from [facility] contacted our hospitalist to make the patient a direct admission and he referred the patient to the ED due to the low blood pressure. Patient currently arrives here with a history as above and per the patient and the son she has had no subsequent falls since that one last week. She has been eating and drinking and the son is preparing food for her. She did have several episodes of diarrhea 2 days ago but that has improved. The patient attributes the diarrhea to her antibiotic use started on Thursday. The patient tells me she is not having any chest pain abdominal pain no nausea no shortness of breath no extremity complaints head neck or back pain and only feels generalized weakness and some dizziness when she stands up. She is very hard of hearing and the son says that he has been with her the entire time since Thursday. Review of systems: As per history of present illness and below otherwise all systems reviewed and negative. Past medical history: As per history of present illness and as reviewed below otherwise noncontributory. Surgical history: As per history of present illness and as reviewed below otherwise noncontributory. Social history: No reported history of drug or alcohol abuse. Family history: As per history of present illness and as reviewed below otherwise noncontributory. Physical exam: Gen.: Well-developed well-nourished female who is nontoxic and very hard of hearing and is cooperative. Her blood pressure on arrival here is 160/65 and it was subsequently repeated with the patient more upright and was 139/58. HEENT: Atraumatic, normocephalic, pupil on left is reactive but the right eye is opacified and this is an old injury per the son, negative for conjunctival pallor or scleral icterus, mucous membranes moist, throat clear, neck supple, nontender, trachea midline. Lungs: Clear to auscultation, breath sounds equal bilaterally, chest nontender. No worker breathing or sensory muscle use Heart: S1S2, regular rate and rhythm and a loud systolic ejection murmur heard loudest at the left sternal border Abdomen: Soft, nondistended, nontender. Negative for masses or hepatosplenomegaly. Negative for costovertebral tenderness. Pelvis: Stable nontender. Genitourinary: Deferred. Rectal: Deferred. Extremities: Atraumatic overall with an old ecchymosis seen at the lateral right tib-fib/lower leg area and some circular old ecchymosis at the right shoulder without any palpable bony deformities tenderness,, negative for cords or calf pain. Neurovascular unremarkable. Neuro: Awake, alert, oriented. Cranial nerves II through XII unremarkable. Cerebellum unremarkable. Motor and sensory unremarkable throughout. Exam nonfocal. Back: There are no midline step-offs in his defects of the thoracic or lumbar spine and no soft tissue evidence of any old or new trauma. There is kyphosis of the thoracic spine Diagnostics: EKG CBC CMP troponin UA urine culture if indicated CT scan of the head chest x- ray Therapeutics: IV O2 monitor IV fluids 1530: There is difficulty getting IV access and we only have a small peripheral IV. I discussed this case with Dr. Mays as he was aware of this patient when she was at the clinic and he does agree to admit the patient here to the hospital and requested a PICC line be placed. I placed an order for a PICC line and will discuss this case with our radiologist. PICC line will be placed by our radiologist and they're currently preparing the room to perform that test at 1620 p.m. The patient has not produced a urine sample and that will have to be obtained from the floor. I will follow-up on the CT scan of the head that is currently being done and the patient will subsequently go for her PICC line and then go to the floor directly after line placement. The hospitalist is okay with this care plan. Impression: Hyponatremia with dizziness and generalized weakness Definitive disposition and diagnosis as appropriate pending reevaluation and review of above. - Related Data Allergies Allergy/AdvReac Type Severity Reaction Status Date / Time prochlorperazine edisylate Allergy Cannot Verified 04/21/17 14:27 [From Compazine] Remember prochlorperazine maleate Allergy Cannot Verified 04/21/17 14:27 [From Compazine] Remember Home Meds: Home Meds Aspirin [Halfprin] 81 mg PO DAILY 06/06/14 [History] Dorzolamide/Timolol [Cosopt 2%-0.5% Ophth Soln] 1 drop EYELF BID 06/06/14 [ History] Felodipine [Felodipine ER] 5 mg PO DAILY 06/06/14 [History] Fish Oil/[place]-3 Fatty Acids [Fish Oil] 500 mg PO DAILY 06/06/14 [History] Latanoprost 1 drop EYELF BEDTIME 06/06/14 [History] Potassium Chloride [Klor-Con 10] 10 meq PO DAILY 06/06/14 [History] Mirtazapine 15 mg PO DAILY 11/19/16 [History] Multivitamin with Minerals [Multiple Vitamin] 1 tab PO DAILY 11/19/16 [History] atorvaSTATin [Lipitor] 10 mg PO DAILY 11/19/16 [History] prednisoLONE Acetate [Pred Forte 1% Ophth Susp] 1 drop EYERT BID 11/19/16 [ History] Levofloxacin [Levaquin] 750 mg PO DAILY #7 tablet 11/24/16 [Rx] Nystatin [Nystop] 100,000 units TOP TID #30 bottle 11/24/16 [Rx] Acetaminophen 325 mg PO Q6H PRN 04/21/17 [History] Losartan [Cozaar] 100 mg PO DAILY 04/21/17 [History] Losartan/Hydrochlorothiazide [Hyzaar 100-25 Tablet] 1 each PO DAILY 04/21/17 [ History] Past Medical History HEENT History: Reports: Glaucoma Cardiovascular History: Reports: Hypertension 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, 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) Other OB/BYN History: hysterectomy Musculoskeletal History: Reports: Osteoporosis Psychiatric History: Reports: Anxiety Dermatologic History: Reports: Other (See Below) Other Dermatologic History: yeast infections - Past Surgical History HEENT Surgical History: Reports: Cataract Surgery Cardiovascular Surgical History: Reports: None Respiratory Surgical History: Reports: None Musculoskeletal Surgical History: Reports: None Dermatological Surgical History: Reports: None Social & Family History - Family History HEENT: Reports: Glaucoma Cardiac: Reports: Hypertension Respiratory: Reports: COPD Musculoskeletal: Reports: Arthritis, Osteoporosis - Tobacco Use Smoking Status *Q: Never Smoker Second Hand Smoke Exposure: Yes - Caffeine Use Caffeine Use: Reports: Coffee - Alcohol Use Days Per Week of Alcohol Use: 0 - Recreational Drug Use Recreational Drug Use: No ED ROS GENERAL - Review of Systems Review Of Systems: ROS reveals no pertinent complaints other than HPI. ED EXAM, GENERAL - Physical Exam Exam: See Below (See dictation) Course - Vital Signs Last Recorded V/S: Last Vital Signs Temp 35.8 C 04/21/17 14:27 Pulse 74 04/21/17 14:27 Resp 18 04/21/17 14:27 BP 160/65 H 04/21/17 14:27 Pulse Ox 94 L 04/21/17 14:27 - Orders/Labs/Meds Orders: Active Orders 24 hr Category Date Time Status Patient Status [ADT] Stat ADT 04/21/17 16:05 Active Cardiac Monitoring [RC] . DIRECTED Care 04/21/17 14:21 Active Communication Order [RC] STAT Care 04/21/17 14:32 Active EKG Documentation Completion [RC] STAT Care 04/21/17 14:21 Active Oxygen Therapy, ED [RC] ASDIRECTED Care 04/21/17 14:21 Active Pulse Oximetry [RC] ASDIRECTED Care 04/21/17 14:21 Active Central Line Placement [CR] Routine Exams 04/21/17 Ordered Guide Vascular Access [US] Routine Exams 04/21/17 Ordered Head wo Cont [CT] Stat Exams 04/21/17 14:32 Ordered PICC Line Insertion [CR] Stat Exams 04/21/17 15:32 Ordered UA W/MICROSCOPIC [URIN] Stat Lab 04/21/17 14:22 Uncollected Sodium Chloride 0.9% [Saline Flush] Med 04/21/17 14:22 Active 10 ml FLUSH ASDIRECTED PRN Sodium Chloride 0.9% [Saline Flush] Med 04/21/17 14:22 Active 2.5 ml FLUSH ASDIRECTED PRN Saline Lock Insert [OM.PC] Stat Oth 04/21/17 14:21 Ordered Medication Orders Sodium Chloride (Saline Flush) 10 ml FLUSH ASDIRECTED PRN PRN Reason: Keep Vein Open Sodium Chloride (Saline Flush) 2.5 ml FLUSH ASDIRECTED PRN PRN Reason: Keep Vein Open Labs: Laboratory Tests 04/21/17 04/21/17 Range/Units 15:07 15:07 WBC 14.32 H (4.0-11.0) K/uL RBC 4.41 (4.30-5.90) M/uL Hgb 12.8 (12.0-16.0) g/dL Hct 36.1 (36.0-46.0) % MCV 81.9 (80.0-98.0) fL MCH 29.0 (27.0-32.0) pg MCHC 35.5 (31.0-37.0) g/dL RDW Std Deviation 46.2 (28.0-62.0) fl RDW Coeff of [place] 15 (11.0-15.0) % Plt Count 277 (150-400) K/uL MPV 9.50 (7.40-12.00) fL Neut % (Auto) 69.3 (48.0-80.0) % Lymph % (Auto) 19.2 (16.0-40.0) % Benson % (Auto) 10.6 (0.0-15.0) % Eos % (Auto) 0.8 (0.0-7.0) % Baso % (Auto) 0.1 (0.0-1.5) % Neut # (Auto) 9.9 H (1.4-5.7) K/uL Lymph # (Auto) 2.8 H (0.6-2.4) K/uL Benson # (Auto) 1.5 H (0.0-0.8) K/uL Eos # (Auto) 0.1 (0.0-0.7) K/uL Baso # (Auto) 0.0 (0.0-0.1) K/uL Nucleated RBC % 0.0 /100WBC Nucleated RBCs # 0 K/uL Sodium 123 L (136-146) mmol/L Potassium 3.2 L (3.5-5.1) mmol/L Chloride 83 L (98-110) mmol/L Carbon Dioxide 29 (21-31) mmol/L BUN 20 (6.0-23.0) mg/dL Creatinine 1.0 (0.6-1.5) mg/dL Est Cr Clr Drug Dosing 33.58 mL/min Estimated GFR (MDRD) 52.3 ml/min Glucose 100 (60-110) mg/dL Calcium 9.0 (8.8-10.8) mg/dL Total Bilirubin 0.5 (0.1-1.5) mg/dL AST 26 (5-40) IU/L ALT 16 (8-54) IU/L Alkaline Phosphatase 63 (40-150) Troponin I < 0.10 (0.0-0.29) NG/ML Total Protein 6.3 (6.0-8.0) g/dL Albumin 3.7 (3.4-4.8) g/dL Globulin 2.6 (2.0-3.5) g/dL Albumin/Globulin Ratio 1.4 (1.3-2.8) Meds: Medications Generic Name Dose Route Start Last Admin Trade Name Freq PRN Reason Stop Dose Admin Sodium Chloride 10 ml 04/21/17 14:22 Saline Flush FLUSH ASDIRECTED PRN Keep Vein Open Sodium Chloride 2.5 ml 04/21/17 14:22 Saline Flush FLUSH ASDIRECTED PRN Keep Vein Open Discontinued Medications Generic Name Dose Route Start Last Admin Trade Name Freq PRN Reason Stop Dose Admin Sodium Chloride 1,000 mls @ 999 mls/hr 04/21/17 14:22 Normal Saline IV 04/21/17 15:22 STAT ONE Departure - Departure Time of Disposition: 16:21 Disposition: Admitted As Inpatient 65 Condition: Good Clinical Impression: Hyponatremia - Discharge Information Referrals: Brody Iqbal MD [Primary Care Provider] - - My Orders Last 24 Hours: My Active Orders 04/21/17 Central Line Placement [CR] Routine Guide Vascular Access [US] Routine 04/21/17 14:21 Cardiac Monitoring [RC] . DIRECTED EKG Documentation Completion [RC] STAT Oxygen Therapy, ED [RC] ASDIRECTED Pulse Oximetry [RC] ASDIRECTED Saline Lock Insert [OM.PC] Stat 04/21/17 14:22 UA W/MICROSCOPIC [URIN] Stat Sodium Chloride 0.9% [Saline Flush] 10 ml FLUSH ASDIRECTED PRN Sodium Chloride 0.9% [Saline Flush] 2.5 ml FLUSH ASDIRECTED PRN 04/21/17 14:32 Communication Order [RC] STAT Head wo Cont [CT] Stat 04/21/17 15:32 PICC Line Insertion [CR] Stat 04/21/17 16:05 Patient Status [ADT] Stat - Assessment/Plan Last 24 Hours: My Active Orders 04/21/17 Central Line Placement [CR] Routine Guide Vascular Access [US] Routine 04/21/17 14:21 Cardiac Monitoring [RC] . DIRECTED EKG Documentation Completion [RC] STAT Oxygen Therapy, ED [RC] ASDIRECTED Pulse Oximetry [RC] ASDIRECTED Saline Lock Insert [OM.PC] Stat 04/21/17 14:22 UA W/MICROSCOPIC [URIN] Stat Sodium Chloride 0.9% [Saline Flush] 10 ml FLUSH ASDIRECTED PRN Sodium Chloride 0.9% [Saline Flush] 2.5 ml FLUSH ASDIRECTED PRN 04/21/17 14:32 Communication Order [RC] STAT Head wo Cont [CT] Stat 04/21/17 15:32 PICC Line Insertion [CR] Stat 04/21/17 16:05 Patient Status [ADT] Stat
[2017-04-21 15:49] LABS: CHLORIDE,CL 83 mmol/L (98-110); SODIUM,NA 123 mmol/L (136-146)
--- NOTE | 2017-04-21 15:58 | CR ---
EXAMINATION: Portable chest radiograph. HISTORY: Shortness of breath. FINDINGS: The trachea is midline. Low lung volumes. The cardiomediastinal silhouette is within normal limits. N o pulmonary infiltrates, effusions or pneumothorax. Mild elevation of the left hemidiaphragm with adj acent atelectasis. Old right-sided rib fractures. IMPRESSION: No acute cardiopulmonary process.
[2017-04-21] MEDS ORDERED: Potassium Chloride 20 MEQ Tab.ER PO ONE (17:54)
[2017-04-21] MEDS: Sodium Chloride 0.9% 1,000 ML IV SCH (17:59)
--- NOTE | 2017-04-21 18:43 | PCM.HP ---
H&P History of Present Illness - General Admit Problem/Dx: Admission Diagnosis/Problem Admission Diagnosis/Problem Hyponatremia - History of Present Illness Initial Comments - Free Text/Narative: 87 yo female with pmh of hypertension, hyperlipidemia who was seen at [facility] last week with symptoms of fall, and cough. She was noted to have a low sodium of 123, negative CXR and negative influenza. She was treated with levaquin and advise to stop taking her HCTZ. She presented again to [facility] with complaints of cough, dizziness and confusion and was noted to have a soidum of 121. Her blood pressure was noted to be 80s/50s but on presenting to the ED she was in the 120s systolic. She has been eating and drinking but had several episodes of diarrhea over weekend. - Related Data Allergies/Adverse Reactions: Allergies Allergy/AdvReac Type Severity Reaction Status Date / Time prochlorperazine edisylate Allergy Cannot Verified 04/21/17 14:27 [From Compazine] Remember prochlorperazine maleate Allergy Cannot Verified 04/21/17 14:27 [From Compazine] Remember Home Medications: Home Meds Aspirin [Halfprin] 81 mg PO DAILY 06/06/14 [History] Dorzolamide/Timolol [Cosopt 2%-0.5% Ophth Soln] 1 drop EYELF BID 06/06/14 [ History] Felodipine [Felodipine ER] 5 mg PO DAILY 06/06/14 [History] Fish Oil/[place]-3 Fatty Acids [Fish Oil] 500 mg PO DAILY 06/06/14 [History] Latanoprost 1 drop EYELF BEDTIME 06/06/14 [History] Potassium Chloride [Klor-Con 10] 10 meq PO DAILY 06/06/14 [History] Mirtazapine 15 mg PO DAILY 11/19/16 [History] Multivitamin with Minerals [Multiple Vitamin] 1 tab PO DAILY 11/19/16 [History] atorvaSTATin [Lipitor] 10 mg PO DAILY 11/19/16 [History] prednisoLONE Acetate [Pred Forte 1% Ophth Susp] 1 drop EYERT BID 11/19/16 [ History] Levofloxacin [Levaquin] 750 mg PO DAILY #7 tablet 11/24/16 [Rx] Nystatin [Nystop] 100,000 units TOP TID #30 bottle 11/24/16 [Rx] Acetaminophen 325 mg PO Q6H PRN 04/21/17 [History] Losartan [Cozaar] 100 mg PO DAILY 04/21/17 [History] Losartan/Hydrochlorothiazide [Hyzaar 100-25 Tablet] 1 each PO DAILY 04/21/17 [ History] Past Medical History HEENT History: Reports: Glaucoma Cardiovascular History: Reports: Hypertension 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, 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) Other OB/BYN History: hysterectomy Musculoskeletal History: Reports: Osteoporosis Psychiatric History: Reports: Anxiety Hematologic History: Reports: None Immunologic History: Reports: None Oncologic (Cancer) History: Reports: None Dermatologic History: Reports: Other (See Below) Other Dermatologic History: yeast infections - Past Surgical History HEENT Surgical History: Reports: Cataract Surgery Cardiovascular Surgical History: Reports: None Respiratory Surgical History: Reports: None Musculoskeletal Surgical History: Reports: None Dermatological Surgical History: Reports: None Social & Family History - Family History HEENT: Reports: Glaucoma Cardiac: Reports: Hypertension Respiratory: Reports: COPD Musculoskeletal: Reports: Arthritis, Osteoporosis - Tobacco Use Smoking Status *Q: Never Smoker Second Hand Smoke Exposure: Yes - Caffeine Use Caffeine Use: Reports: Coffee - Alcohol Use Days Per Week of Alcohol Use: 0 - Recreational Drug Use Recreational Drug Use: No H&P Review of Systems - Review of Systems: Review Of Systems: See Below Exam - Exam Exam: See Below - Vital Signs Vital Signs: Last Vital Signs Temp 35.8 C 04/21/17 14:27 Pulse 70 04/21/17 15:55 Resp 18 04/21/17 15:55 BP 135/67 04/21/17 15:55 Pulse Ox 97 04/21/17 15:55 Weight: 63.5 kg - Exam General: Alert, Cooperative. No: Mild Distress HEENT: Mucosa Moist & [place] Lungs: Clear to Auscultation, Normal Respiratory Effort Cardiovascular: Regular Rate, Regular Rhythm GI/Abdominal Exam: Soft, Non-Tender, No Distention Extremities: Non-Tender, No Pedal Edema Skin: Warm, Dry, Intact - Patient Data Result Diagrams: 04/22/17 04:05 04/22/17 14:50 *Q Meaningful Use (ADM) - VTE *Q VTE Criteria *Q: - Stroke *Q Stroke Criteria *Q: - AMI *Q AMI Criteria *Q: Problem List Initiated/Reviewed/Updated: Yes Orders Last 24hrs: Active Orders 24 hr Category Date Time Status Regular Diet [DIET] Diet 04/21/17 Breakfast Active Central Line Placement [CR] Routine Exams 04/21/17 16:24 Taken Guide Vascular Access [US] Routine Exams 04/21/17 Taken BMP [BASIC METABOLIC PANEL,BMP] [CHEM] Q6H Lab 04/21/17 19:00 Ordered BMP [BASIC METABOLIC PANEL,BMP] [CHEM] Q6H Lab 04/22/17 01:00 Ordered BMP [BASIC METABOLIC PANEL,BMP] [CHEM] Q6H Lab 04/22/17 07:00 Ordered BMP [BASIC METABOLIC PANEL,BMP] [CHEM] Q6H Lab 04/22/17 13:00 Ordered Levofloxacin Med 04/22/17 09:00 Ordered 750 mg PO DAILY Sodium Chloride 0.9% [Normal Saline] 1,000 ml Med 04/21/17 18:00 Active IV ASDIRECTED Medication Orders Sodium Chloride (Normal Saline) 1,000 mls @ 125 mls/hr IV ASDIRECTED ANDREINA Last Admin: 04/21/17 17:59 Dose: 125 mls/hr Non-Formulary Medication (Levofloxacin) 750 mg PO DAILY [facility] Sodium Chloride (Saline Flush) 10 ml FLUSH ASDIRECTED PRN PRN Reason: Keep Vein Open Sodium Chloride (Saline Flush) 2.5 ml FLUSH ASDIRECTED PRN PRN Reason: Keep Vein Open Assessment/Plan Comment:: 87 yo female admitted for hyponatremia. We will hydrate with IV fluids of normal saline and follow sodium closely. Will continue oral levaquin due to respiratory symptoms and leukocytosis.
[2017-04-21] MEDS: Levofloxacin 250 MG Tab PO SCH (21:08)
[2017-04-21 21:09] LABS: CHLORIDE,CL 87 mmol/L (98-110); SODIUM,NA 124 mmol/L (136-146)
[2017-04-22 01:05] LABS: CHLORIDE,CL 90 mmol/L (98-110); SODIUM,NA 126 mmol/L (136-146)
[2017-04-22] MEDS: Sodium Chloride 0.9% 1,000 ML IV SCH ×3 (02:25→18:07)
[2017-04-22 04:37] LABS: CHLORIDE,CL 94 mmol/L (98-110); SODIUM,NA 125 mmol/L (136-146)
--- NOTE | 2017-04-22 08:38 | CR ---
EXAMINATION: Fluoro and ultrasound guided left-sided PICC line placement. HISTORY: Need for IV access. TECHNIQUE/FINDINGS: After written informed consent was obtained from the patient using ultrasound an d Fluoro guidance under aseptic conditions utilizing 1% lidocaine as local anesthesia the proximal ba silic vein was accessed just prior to the bifurcation of the brachial vein and 4 [place] PICC catheter was deployed with its tip in the distal superior vena cava. The catheter flushes and withdraws blood well. The catheter is flushed with the diluted heparin. The catheter secured well. IMPRESSION: Successful Fluoro and ultrasound guided PICC line placement.
--- NOTE | 2017-04-22 08:43 | PCM.PN ---
- General Info Date of Service: 04/22/17 Admission Dx/Problem (Free Text): Admission Diagnosis/Problem Admission Diagnosis/Problem Hyponatremia Subjective Update: Patient doing well. She still feels weak. No other complaints or concerns Functional Status: Reports: Pain Controlled, Tolerating Diet, Urinating - Review of Systems General: Reports: Weakness HEENT: Reports: No Symptoms Pulmonary: Reports: No Symptoms Cardiovascular: Reports: No Symptoms Gastrointestinal: Reports: No Symptoms Genitourinary: Reports: No Symptoms Musculoskeletal: Reports: No Symptoms Skin: Reports: No Symptoms Neurological: Reports: No Symptoms Psychiatric: Reports: No Symptoms - Patient Data Vitals - Most Recent: Last Vital Signs Temp 36.7 C 04/22/17 06:05 Pulse 94 04/22/17 06:05 Resp 16 04/22/17 06:05 BP 167/79 H 04/22/17 06:05 Pulse Ox 95 04/22/17 06:05 Weight - Most Recent: 63.5 kg I&O - Last 24 Hours: Intake & Output 04/21/17 04/22/17 04/22/17 22:59 06:59 14:59 Intake Total 2500 Balance 2500 Lab Results Last 24 Hours: Laboratory Results - last 24 hr 04/21/17 04/22/17 04/22/17 Range/Units 20:22 00:25 04:05 WBC 13.09 H (4.0-11.0) K/uL RBC 3.76 L (4.30-5.90) M/uL Hgb 11.0 L (12.0-16.0) g/dL Hct 30.7 L (36.0-46.0) % MCV 81.6 (80.0-98.0) fL MCH 29.3 (27.0-32.0) pg MCHC 35.8 (31.0-37.0) g/dL RDW Std Deviation 45.1 (28.0-62.0) fl RDW Coeff of Dillon 15 (11.0-15.0) % Plt Count 223 (150-400) K/uL MPV 9.20 (7.40-12.00) fL Neut % (Auto) 70.0 (48.0-80.0) % Lymph % (Auto) 18.9 (16.0-40.0) % [place] % (Auto) 10.2 (0.0-15.0) % Eos % (Auto) 0.7 (0.0-7.0) % Baso % (Auto) 0.2 (0.0-1.5) % Neut # (Auto) 9.2 H (1.4-5.7) K/uL Lymph # (Auto) 2.5 H (0.6-2.4) K/uL [place] # (Auto) 1.3 H (0.0-0.8) K/uL Eos # (Auto) 0.1 (0.0-0.7) K/uL Baso # (Auto) 0.0 (0.0-0.1) K/uL Nucleated RBC % 0.0 /100WBC Nucleated RBCs # 0 K/uL Sodium 124 L 126 L (136-146) mmol/L Potassium 3.2 L 3.6 (3.5-5.1) mmol/L Chloride 87 L 90 L (98-110) mmol/L Carbon Dioxide 26 26 (21-31) mmol/L BUN 17 16 (6.0-23.0) mg/dL Creatinine 0.8 0.7 (0.6-1.5) mg/dL Est Cr Clr Drug Dosing 41.97 47.97 mL/min Estimated GFR (MDRD) > 60.0 > 60.0 ml/min Glucose 120 H 77 (60-110) mg/dL Calcium 8.2 L 8.2 L (8.8-10.8) mg/dL Urine Color Urine Appearance Urine pH (5.0-8.0) Ur Specific [place] (1.001-1.035) Urine Protein (NEGATIVE) mg/dL Urine Glucose (UA) (NEGATIVE) mg/dL Urine Ketones (NEGATIVE) mg/dL Urine Occult Blood (NEGATIVE) Urine Nitrite (NEGATIVE) Urine Bilirubin (NEGATIVE) Urine Urobilinogen (<2.0) EU/dL Ur Leukocyte Esterase (NEGATIVE) Urine RBC (0-2/HPF) Urine WBC (0-5/HPF) Ur Epithelial Cells (NONE-FEW) Urine Bacteria (NEGATIVE) Ur Random Sodium mmol/L 04/22/17 04/22/17 04/22/17 Range/Units 04:05 05:20 05:20 WBC (4.0-11.0) K/uL RBC (4.30-5.90) M/uL Hgb (12.0-16.0) g/dL Hct (36.0-46.0) % MCV (80.0-98.0) fL MCH (27.0-32.0) pg MCHC (31.0-37.0) g/dL RDW Std Deviation (28.0-62.0) fl RDW Coeff of Dillon (11.0-15.0) % Plt Count (150-400) K/uL MPV (7.40-12.00) fL Neut % (Auto) (48.0-80.0) % Lymph % (Auto) (16.0-40.0) % [place] % (Auto) (0.0-15.0) % Eos % (Auto) (0.0-7.0) % Baso % (Auto) (0.0-1.5) % Neut # (Auto) (1.4-5.7) K/uL Lymph # (Auto) (0.6-2.4) K/uL [place] # (Auto) (0.0-0.8) K/uL Eos # (Auto) (0.0-0.7) K/uL Baso # (Auto) (0.0-0.1) K/uL Nucleated RBC % /100WBC Nucleated RBCs # K/uL Sodium 125 L (136-146) mmol/L Potassium 3.7 (3.5-5.1) mmol/L Chloride 94 L (98-110) mmol/L Carbon Dioxide 24 (21-31) mmol/L BUN 14 (6.0-23.0) mg/dL Creatinine 0.7 (0.6-1.5) mg/dL Est Cr Clr Drug Dosing 47.97 mL/min Estimated GFR (MDRD) > 60.0 ml/min Glucose 89 (60-110) mg/dL Calcium 7.9 L (8.8-10.8) mg/dL Urine Color YELLOW Urine Appearance HAZY Urine pH 7.0 (5.0-8.0) Ur Specific [place] 1.010 (1.001-1.035) Urine Protein NEGATIVE (NEGATIVE) mg/dL Urine Glucose (UA) NEGATIVE (NEGATIVE) mg/dL Urine Ketones NEGATIVE (NEGATIVE) mg/dL Urine Occult Blood MODERATE (NEGATIVE) Urine Nitrite NEGATIVE (NEGATIVE) Urine Bilirubin NEGATIVE (NEGATIVE) Urine Urobilinogen 0.2 (<2.0) EU/dL Ur Leukocyte Esterase LARGE (NEGATIVE) Urine RBC 1-2 (0-2/HPF) Urine WBC TO NUMEROUS TO COUNT H (0-5/HPF) Ur Epithelial Cells FEW (NONE-FEW) Urine Bacteria FEW (NEGATIVE) Ur Random Sodium 32.0 mmol/L Matteo Results Last 24 Hours: Microbiology 04/22/17 05:20 Urine Culture - Preliminary Urine, Quick Cath (In-Out) NO GROWTH AFTER 1 DAY Med Orders - Current: Current Medications Sodium Chloride (Normal Saline) 1,000 mls @ 125 mls/hr IV ASDIRECTED [facility] Last Admin: 04/22/17 02:25 Dose: 125 mls/hr Levofloxacin (Levaquin) 750 mg PO Q2D@2100 [facility] Last Admin: 04/21/17 21:08 Dose: 750 mg Sodium Chloride (Saline Flush) 10 ml FLUSH ASDIRECTED PRN PRN Reason: Keep Vein Open Sodium Chloride (Saline Flush) 2.5 ml FLUSH ASDIRECTED PRN PRN Reason: Keep Vein Open Discontinued Medications Sodium Chloride (Normal Saline) 1,000 mls @ 999 mls/hr IV STAT ONE Stop: 04/21/17 15:22 Last Admin: 04/21/17 18:11 Dose: Not Given Potassium Chloride (Klor-Con M20) 40 meq PO ONETIME ONE Stop: 04/21/17 17:55 Last Admin: 04/21/17 18:09 Dose: 40 meq - Exam Quality Assessment: Supplemental Oxygen General: No Acute Distress, Other (Patient is orented to person but not place or time ) Neck: Supple, No JVD Lungs: Decreased Breath Sounds, Crackles Cardiovascular: Regular Rate, Regular Rhythm GI/Abdominal Exam: Normal Bowel Sounds, Soft, Non-Tender, No Distention Back Exam: Normal Inspection Extremities: Normal Inspection, Normal Capillary Refill Peripheral Pulses: 2+: Radial (L), Radial (R), Dorsalis Pedis (L), Dorsalis Pedis (R) Skin: Warm, Dry, Intact Neurological: No New Focal Deficit - Problem List Review Problem List Initiated/Reviewed/Updated: Yes - Plan Plan:: 87 yo female with history of HTN & depression admitted for hyponatremia. We will hydrate with IV fluids of normal saline and follow sodium closely. Will continue oral levaquin due to respiratory symptoms and leukocytosis. #Hyponatremia -likely Euvolemic -Na 123 at admission, currently 125 -dizziness and confusion improving -on IV NS @ 125 ml/hour plan: -free water restriction -continue IV NS -serial Na #Dizziness & Confusion -secondary to above -plan as per above #Leukocytosis, improving, WBC 13.09 -likely secondary to respiratory illness -UA inconclusive, awaiting UC -on Levaquin 750 mg PO plan: -continue Levaquin -f/u UC #HTN -holding home Losartan & Felodipine -hemodynamically stable but bp rising plan -start Losartan
[2017-04-22 10:02] LABS: CHLORIDE,CL 94 mmol/L (98-110); SODIUM,NA 126 mmol/L (136-146)
--- NOTE | 2017-04-22 10:12 | CT ---
EXAM DATE: 04/21/17 PATIENT'S AGE: 87 Patient: VINOD SHIPLEY Facility: [place], [place] Site . Site : [id number] Study: CT Head [id number] 5:04:36 PM Ordering Physician: Usha Davis Final Report: Indication: Pain. Technique: Contiguous axial images were obtained from the skullbase through the vertex. Intravenous contrast was not administered. 3D rendering, including image post processing was performed on an independent work station. Comparison: CT head 05/10/2011. Findings: The ventricles are midline, symmetric with mild dilatation and commensurate sulci widening reflecting cerebral and cerebellar atrophy. There is no intracranial hemorrhage. There is no mass on this unenhanced CT scan. There is preservation of pastor/white matter junction with periventricular low-density white matter changes noted reflecting white matter vessel ischemic disease. The visualized paranasal sinuses and mastoid air cells are normally aerated. Nasal septal deviation to the right with a small bony spur. Internal carotid artery calcification is noted. Impression: Age-related changes. No acute intracranial abnormality. Please note that all CT scans at this facility use dose modulation, iterative reconstruction, and/or weight-based dosing when appropriate to reduce radiation dose to as low as reasonably achievable. Dictated by Val De Santiago MD @ Apr 21 2017 5:28PM (Electronic Signature) Report Signed by Proxy. [facility]
[2017-04-22 15:12] LABS: CHLORIDE,CL 95 mmol/L (98-110); SODIUM,NA 126 mmol/L (136-146)
[2017-04-22 20:51] LABS: CHLORIDE,CL 97 mmol/L (98-110); SODIUM,NA 128 mmol/L (136-146)
[2017-04-23] MEDS: Sodium Chloride 0.9% 1,000 ML IV SCH ×2 (03:00→23:58)
[2017-04-23 05:57] LABS: CHLORIDE,CL 100 mmol/L (98-110); SODIUM,NA 130 mmol/L (136-146)
[2017-04-23] MEDS ORDERED: Potassium Chloride 20 MEQ Tab.ER PO ONE (08:54)
[2017-04-23] MEDS ORDERED: Potassium Chloride 10% 20 MEQ/15 ML Soln 30 ML UD Cup PO ONE (08:54)
--- NOTE | 2017-04-23 11:26 | PCM.PN ---
- General Info Date of Service: 04/23/17 Admission Dx/Problem (Free Text): Admission Diagnosis/Problem Admission Diagnosis/Problem Hyponatremia Subjective Update: Patient doing well. Weakness improving. No other complaints or concerns Functional Status: Reports: Pain Controlled, Tolerating Diet, Ambulating, Urinating - Review of Systems General: Reports: No Symptoms HEENT: Reports: No Symptoms Pulmonary: Reports: No Symptoms Cardiovascular: Reports: No Symptoms Gastrointestinal: Reports: No Symptoms Genitourinary: Reports: No Symptoms Musculoskeletal: Reports: No Symptoms Skin: Reports: No Symptoms Neurological: Reports: No Symptoms Psychiatric: Reports: No Symptoms - Patient Data Vitals - Most Recent: Last Vital Signs Temp 36.0 C 04/23/17 08:00 Pulse 87 04/23/17 08:00 Resp 20 04/23/17 08:00 BP 186/79 H 04/23/17 08:00 Pulse Ox 99 04/23/17 08:00 Weight - Most Recent: 63.5 kg I&O - Last 24 Hours: Intake & Output 04/22/17 04/23/17 04/23/17 22:59 06:59 14:59 Intake Total 1827 1240 Output Total 1165 736 Balance 662 504 Lab Results Last 24 Hours: Laboratory Results - last 24 hr 04/22/17 04/22/17 04/23/17 Range/Units 14:50 20:21 05:10 WBC 14.92 H (4.0-11.0) K/uL RBC 3.47 L (4.30-5.90) M/uL Hgb 10.2 L (12.0-16.0) g/dL Hct 29.0 L (36.0-46.0) % MCV 83.6 (80.0-98.0) fL MCH 29.4 (27.0-32.0) pg MCHC 35.2 (31.0-37.0) g/dL RDW Std Deviation 47.8 (28.0-62.0) fl RDW Coeff of Dillon 16 H (11.0-15.0) % Plt Count 206 (150-400) K/uL MPV 9.90 (7.40-12.00) fL Neut % (Auto) 74.2 (48.0-80.0) % Lymph % (Auto) 13.3 L (16.0-40.0) % [place] % (Auto) 12.2 (0.0-15.0) % Eos % (Auto) 0.1 (0.0-7.0) % Baso % (Auto) 0.2 (0.0-1.5) % Neut # (Auto) 11.1 H (1.4-5.7) K/uL Lymph # (Auto) 2.0 (0.6-2.4) K/uL [place] # (Auto) 1.8 H (0.0-0.8) K/uL Eos # (Auto) 0.0 (0.0-0.7) K/uL Baso # (Auto) 0.0 (0.0-0.1) K/uL Nucleated RBC % 0.0 /100WBC Nucleated RBCs # 0 K/uL Sodium 126 L 128 L (136-146) mmol/L Potassium 3.7 3.4 L (3.5-5.1) mmol/L Chloride 95 L 97 L (98-110) mmol/L Carbon Dioxide 24 23 (21-31) mmol/L BUN 12 11 (6.0-23.0) mg/dL Creatinine 0.7 0.6 (0.6-1.5) mg/dL Est Cr Clr Drug Dosing 47.97 55.97 mL/min Estimated GFR (MDRD) > 60.0 > 60.0 ml/min Glucose 101 116 H (60-110) mg/dL Calcium 8.0 L 8.0 L (8.8-10.8) mg/dL 04/23/17 Range/Units 05:10 WBC (4.0-11.0) K/uL RBC (4.30-5.90) M/uL Hgb (12.0-16.0) g/dL Hct (36.0-46.0) % MCV (80.0-98.0) fL MCH (27.0-32.0) pg MCHC (31.0-37.0) g/dL RDW Std Deviation (28.0-62.0) fl RDW Coeff of Dillon (11.0-15.0) % Plt Count (150-400) K/uL MPV (7.40-12.00) fL Neut % (Auto) (48.0-80.0) % Lymph % (Auto) (16.0-40.0) % [place] % (Auto) (0.0-15.0) % Eos % (Auto) (0.0-7.0) % Baso % (Auto) (0.0-1.5) % Neut # (Auto) (1.4-5.7) K/uL Lymph # (Auto) (0.6-2.4) K/uL [place] # (Auto) (0.0-0.8) K/uL Eos # (Auto) (0.0-0.7) K/uL Baso # (Auto) (0.0-0.1) K/uL Nucleated RBC % /100WBC Nucleated RBCs # K/uL Sodium 130 L (136-146) mmol/L Potassium 3.0 L (3.5-5.1) mmol/L Chloride 100 (98-110) mmol/L Carbon Dioxide 23 (21-31) mmol/L BUN 7 (6.0-23.0) mg/dL Creatinine 0.6 (0.6-1.5) mg/dL Est Cr Clr Drug Dosing 55.97 mL/min Estimated GFR (MDRD) > 60.0 ml/min Glucose 119 H (60-110) mg/dL Calcium 7.5 L (8.8-10.8) mg/dL Matteo Results Last 24 Hours: Microbiology 04/22/17 05:20 Urine Culture - Final Urine, Quick Cath (In-Out) No Growth Med Orders - Current: Current Medications Aspirin (Halfprin) 81 mg PO DAILY [facility] Atorvastatin Calcium (Lipitor) 10 mg PO DAILY [facility] Sodium Chloride (Normal Saline) 1,000 mls @ 50 mls/hr IV ASDIRECTED [facility] Last Admin: 04/23/17 03:00 Dose: 50 mls/hr Ceftriaxone Sodium/Dextrose 1 (gm/ Premix) 50 mls @ 100 mls/hr IV Q24H [facility] Levofloxacin (Levaquin) 750 mg PO Q2D@2100 [facility] Last Admin: 04/21/17 21:08 Dose: 750 mg Losartan Potassium (Cozaar) 100 mg PO DAILY [facility] Mirtazapine (Remeron) 15 mg PO DAILY [facility] Sodium Chloride (Saline Flush) 10 ml FLUSH ASDIRECTED PRN PRN Reason: Keep Vein Open Sodium Chloride (Saline Flush) 2.5 ml FLUSH ASDIRECTED PRN PRN Reason: Keep Vein Open Discontinued Medications Sodium Chloride (Normal Saline) 1,000 mls @ 999 mls/hr IV STAT ONE Stop: 04/21/17 15:22 Last Admin: 04/21/17 18:11 Dose: Not Given Potassium Chloride (Klor-Con M20) 40 meq PO ONETIME ONE Stop: 04/21/17 17:55 Last Admin: 04/21/17 18:09 Dose: 40 meq Potassium Chloride (Potassium Chloride) 40 meq PO ONETIME ONE Stop: 04/23/17 08:55 Last Admin: 04/23/17 09:08 Dose: 40 meq Potassium Chloride (Klor-Con M20) 20 meq PO ONETIME ONE Stop: 04/23/17 08:55 Last Admin: 04/23/17 09:08 Dose: 20 meq - Exam General: No Acute Distress HEENT: Pupils Equal, Pupils Reactive Neck: Supple, No JVD Lungs: Normal Respiratory Effort, Decreased Breath Sounds Cardiovascular: Regular Rate, Regular Rhythm GI/Abdominal Exam: Normal Bowel Sounds, Soft, No Organomegaly, No Distention Extremities: Normal Inspection, Normal Capillary Refill Skin: Warm, Dry, Intact Neurological: No New Focal Deficit Psy/Mental Status: Alert, Normal Affect, Normal Mood - Problem List Review Problem List Initiated/Reviewed/Updated: Yes - My Orders Last 24 Hours: My Active Orders 04/23/17 10:35 UA W/MICROSCOPIC [URIN] Routine 04/23/17 10:45 Aspirin [Halfprin] 81 mg PO DAILY Losartan [Cozaar] 100 mg PO DAILY 04/23/17 11:00 cefTRIAXone [Rocephin in Dextrose,Iso-Osm 1 GM/50 ML] 1 gm Premix Bag 1 bag IV Q24H 04/24/17 09:00 Mirtazapine [Remeron] 15 mg PO DAILY atorvaSTATin [Lipitor] 10 mg PO DAILY - Plan Plan:: 87 yo female with history of HTN & depression admitted for hyponatremia & Leukocytosis #Hyponatremia, improving -likely Euvolemic -Na 123 at admission, currently 130 -dizziness and confusion improving -on IV NS @ 50 ml/hour plan: -free water restriction -continue IV NS #Dizziness & Confusion -secondary to above -plan as per above #Leukocytosis, improving, WBC 13.09 -likely secondary to respiratory illness -initial UA & UC negative -on Levaquin 750 mg PO plan: -continue Levaquin -add Rocephin 1 gm Q24 hours -repeat UA #HTN -holding home Losartan & Felodipine -hemodynamically stable but bp rising plan -resume home medications
[2017-04-23] MEDS: Aspirin 81 MG Tab.EC PO SCH (11:31)
[2017-04-23] MEDS: Losartan 50 MG Tab PO SCH (11:32)
[2017-04-23] MEDS: cefTRIAXone 1 GM in Premix Bag 1 BAG IV SCH (11:32)
[2017-04-23] MEDS: Levofloxacin 250 MG Tab PO SCH (20:52)
[2017-04-24 06:10] LABS: CHLORIDE,CL 98 mmol/L (98-110); SODIUM,NA 128 mmol/L (136-146)
[2017-04-24] MEDS: Aspirin 81 MG Tab.EC PO SCH (08:34)
[2017-04-24] MEDS: atorvaSTATin 10 MG Tab PO SCH (08:34)
[2017-04-24] MEDS: Losartan 50 MG Tab PO SCH (08:35)
[2017-04-24] MEDS: Mirtazapine 15 MG Tab PO SCH (08:35)
--- NOTE | 2017-04-24 10:18 | PCM.PN ---
- General Info Date of Service: 04/24/17 Admission Dx/Problem (Free Text): Admission Diagnosis/Problem Admission Diagnosis/Problem Hyponatremia Subjective Update: Patient doing well. Weakness improving. No other complaints or concerns Functional Status: Reports: Pain Controlled, Tolerating Diet, Ambulating, Urinating - Review of Systems General: Reports: No Symptoms HEENT: Reports: No Symptoms Pulmonary: Reports: No Symptoms Cardiovascular: Reports: No Symptoms Gastrointestinal: Reports: No Symptoms Genitourinary: Reports: No Symptoms Musculoskeletal: Reports: No Symptoms Skin: Reports: No Symptoms Neurological: Reports: No Symptoms Psychiatric: Reports: No Symptoms - Patient Data Vitals - Most Recent: Last Vital Signs Temp 36.9 C 04/24/17 09:23 Pulse 104 H 04/24/17 09:23 Resp 28 H 04/24/17 09:23 BP 177/77 H 04/24/17 09:23 Pulse Ox 95 04/24/17 09:23 Weight - Most Recent: 63.5 kg I&O - Last 24 Hours: Intake & Output 04/23/17 04/24/17 04/24/17 22:59 06:59 14:59 Intake Total 1138 300 Output Total 673 525 Balance 465 -225 Lab Results Last 24 Hours: Laboratory Results - last 24 hr 04/23/17 04/24/17 04/24/17 Range/Units 12:45 05:05 05:05 WBC 13.46 H (4.0-11.0) K/uL RBC 3.48 L (4.30-5.90) M/uL Hgb 10.1 L (12.0-16.0) g/dL Hct 29.2 L (36.0-46.0) % MCV 83.9 (80.0-98.0) fL MCH 29.0 (27.0-32.0) pg MCHC 34.6 (31.0-37.0) g/dL RDW Std Deviation 48.6 (28.0-62.0) fl RDW Coeff of Dillon 16 H (11.0-15.0) % Plt Count 220 (150-400) K/uL MPV 9.80 (7.40-12.00) fL Neut % (Auto) 78.2 (48.0-80.0) % Lymph % (Auto) 11.5 L (16.0-40.0) % [place] % (Auto) 9.7 (0.0-15.0) % Eos % (Auto) 0.4 (0.0-7.0) % Baso % (Auto) 0.2 (0.0-1.5) % Neut # (Auto) 10.5 H (1.4-5.7) K/uL Lymph # (Auto) 1.6 (0.6-2.4) K/uL [place] # (Auto) 1.3 H (0.0-0.8) K/uL Eos # (Auto) 0.1 (0.0-0.7) K/uL Baso # (Auto) 0.0 (0.0-0.1) K/uL Nucleated RBC % 0.0 /100WBC Nucleated RBCs # 0 K/uL Sodium 128 L (136-146) mmol/L Potassium 3.5 (3.5-5.1) mmol/L Chloride 98 (98-110) mmol/L Carbon Dioxide 22 (21-31) mmol/L BUN 7 (6.0-23.0) mg/dL Creatinine 0.6 (0.6-1.5) mg/dL Est Cr Clr Drug Dosing 55.97 mL/min Estimated GFR (MDRD) > 60.0 ml/min Glucose 106 (60-110) mg/dL Calcium 7.8 L (8.8-10.8) mg/dL Urine Color YELLOW Urine Appearance CLEAR Urine pH 6.0 (5.0-8.0) Ur Specific [place] 1.020 (1.001-1.035) Urine Protein TRACE (NEGATIVE) mg/dL Urine Glucose (UA) NEGATIVE (NEGATIVE) mg/dL Urine Ketones NEGATIVE (NEGATIVE) mg/dL Urine Occult Blood SMALL H (NEGATIVE) Urine Nitrite NEGATIVE (NEGATIVE) Urine Bilirubin NEGATIVE (NEGATIVE) Urine Urobilinogen 0.2 (<2.0) EU/dL Ur Leukocyte Esterase SMALL (NEGATIVE) Urine RBC 1-3 (0-2/HPF) Urine WBC 8-10 (0-5/HPF) Ur Epithelial Cells RARE (NONE-FEW) Urine Bacteria FEW (NEGATIVE) Matteo Results Last 24 Hours: Microbiology 04/22/17 05:20 Urine Culture - Final Urine, Quick Cath (In-Out) No Growth Med Orders - Current: Current Medications Aspirin (Halfprin) 81 mg PO DAILY [facility] Last Admin: 04/24/17 08:34 Dose: 81 mg Atorvastatin Calcium (Lipitor) 10 mg PO DAILY [facility] Last Admin: 04/24/17 08:34 Dose: 10 mg Felodipine (Felodipine Er) 5 mg PO DAILY [facility] Last Admin: 04/24/17 08:34 Dose: 5 mg Sodium Chloride (Normal Saline) 1,000 mls @ 50 mls/hr IV ASDIRECTED [facility] Last Admin: 04/23/17 23:58 Dose: 50 mls/hr Ceftriaxone Sodium/Dextrose 1 (gm/ Premix) 50 mls @ 100 mls/hr IV Q24H [facility] Last Admin: 04/23/17 11:32 Dose: 100 mls/hr Levofloxacin (Levaquin) 750 mg PO Q24H [facility] Losartan Potassium (Cozaar) 100 mg PO DAILY [facility] Last Admin: 04/24/17 08:35 Dose: 100 mg Mirtazapine (Remeron) 15 mg PO DAILY [facility] Last Admin: 04/24/17 08:35 Dose: 15 mg Sodium Chloride (Saline Flush) 10 ml FLUSH ASDIRECTED PRN PRN Reason: Keep Vein Open Sodium Chloride (Saline Flush) 2.5 ml FLUSH ASDIRECTED PRN PRN Reason: Keep Vein Open Discontinued Medications Sodium Chloride (Normal Saline) 1,000 mls @ 999 mls/hr IV STAT ONE Stop: 04/21/17 15:22 Last Admin: 04/21/17 18:11 Dose: Not Given Levofloxacin (Levaquin) 750 mg PO Q2D@2100 [facility] Last Admin: 04/23/17 20:52 Dose: 750 mg Potassium Chloride (Klor-Con M20) 40 meq PO ONETIME ONE Stop: 04/21/17 17:55 Last Admin: 04/21/17 18:09 Dose: 40 meq Potassium Chloride (Potassium Chloride) 40 meq PO ONETIME ONE Stop: 04/23/17 08:55 Last Admin: 04/23/17 09:08 Dose: 40 meq Potassium Chloride (Klor-Con M20) 20 meq PO ONETIME ONE Stop: 04/23/17 08:55 Last Admin: 04/23/17 09:08 Dose: 20 meq - Exam General: Cooperative, No Acute Distress HEENT: Pupils Equal, Pupils Reactive Neck: Supple, No JVD Lungs: Normal Respiratory Effort, Decreased Breath Sounds Cardiovascular: Regular Rate, Regular Rhythm GI/Abdominal Exam: Normal Bowel Sounds, Soft, Non-Tender, No Distention Extremities: Normal Inspection, Normal Capillary Refill Peripheral Pulses: 2+: Radial (L), Radial (R) Skin: Warm, Dry, Intact Neurological: No New Focal Deficit Psy/Mental Status: Normal Mood - Problem List Review Problem List Initiated/Reviewed/Updated: Yes - My Orders Last 24 Hours: My Active Orders 04/23/17 10:45 Aspirin [Halfprin] 81 mg PO DAILY Losartan [Cozaar] 100 mg PO DAILY 04/23/17 11:00 cefTRIAXone [Rocephin in Dextrose,Iso-Osm 1 GM/50 ML] 1 gm Premix Bag 1 bag IV Q24H 04/23/17 17:48 Felodipine [Felodipine ER] 5 mg PO DAILY 04/24/17 09:00 Mirtazapine [Remeron] 15 mg PO DAILY atorvaSTATin [Lipitor] 10 mg PO DAILY 04/25/17 05:11 BMP [BASIC METABOLIC PANEL,BMP] [CHEM] AM 04/26/17 05:11 BMP [BASIC METABOLIC PANEL,BMP] [CHEM] AM 04/27/17 05:11 BMP [BASIC METABOLIC PANEL,BMP] [CHEM] AM 04/28/17 05:11 BMP [BASIC METABOLIC PANEL,BMP] [CHEM] AM - Plan Plan:: 87 yo female with history of HTN & depression admitted for hyponatremia & Leukocytosis #Hyponatremia, chronic -likely Euvolemic -Na 123 at admission, improved to 130 yesterday, currently 128 -dizziness and confusion improved -on IV NS @ 50 ml/hour plan: -free water restriction -increase IV NS to 125 ml/hour -repeat Na in evening #Dizziness & Confusion, improved -secondary to above -plan as per above #Leukocytosis -likely secondary to respiratory illness -initial UA & UC negative -WBC count continued to increase while on Levaquin 750 mg PO but improved after starting Rocephin IV yesterday plan: -continue Levaquin & Rocephin 1 gm Q24 hours -monitor WBC #HTN -resumed home Losartan & Felodipine DVt Prophylaxis: lovenox, SCD
[2017-04-24] MEDS: cefTRIAXone 1 GM in Premix Bag 1 BAG IV SCH (11:32)
[2017-04-24] MEDS: Sodium Chloride 0.9% 1,000 ML IV SCH (20:42)
[2017-04-24] MEDS ORDERED: Levofloxacin 250 MG Tab PO SCH (21:00)
[2017-04-25 06:55] LABS: CHLORIDE,CL 98 mmol/L (98-110); SODIUM,NA 128 mmol/L (136-146)
[2017-04-25] MEDS ORDERED: Potassium Chloride 20 MEQ Tab.ER PO ONE (07:43)
[2017-04-25] MEDS: Losartan 50 MG Tab PO SCH (08:37)
[2017-04-25] MEDS: atorvaSTATin 10 MG Tab PO SCH (08:37)
[2017-04-25] MEDS: Mirtazapine 15 MG Tab PO SCH (08:37)
[2017-04-25] MEDS: Aspirin 81 MG Tab.EC PO SCH (08:37)
[2017-04-25 08:38] VITALS: BP 161/72
[2017-04-25] MEDS: cefTRIAXone 1 GM in Premix Bag 1 BAG IV SCH (11:06)
--- NOTE | 2017-04-25 12:20 | PCM.DCSUM1 ---
Discharge Summary - Hospital Course Free Text/Narrative:: 87 yo female with history of HTN & depression admitted 04/21/17 for dizziness and weakness secondary hyponatremia & Leukocytosis secondary to presumed respiratory illness. Chronic Hyponatremia was treated with free water restriction and Na was monitored closely to prevent rapid correction. Respiratory illness was treated with antibiotics. SHe was discharged home on 04/25. She was send home with home health. #Chronic Hyponatremia, improved -decrease free water intake -daily salt tabs #Dizziness & Confusion, improved -secondary to above -plan as per above #Leukocytosis, resolved -likely secondary to respiratory illness -treated with Levaquin #HTN -resumed home Losartan & Felodipine - Discharge Data Discharge Date: 04/25/17 Discharge Disposition: Home, W Home Health Agency 06 Condition: Good - Patient Instructions Diet, Other: increase salt in diet Fluid Restriction: Avoid excessive water intake but may drink gatorade and other electrolyte beverages Activity: As Tolerated Driving: Do Not Drive Notify Provider of: Fever, Increased Pain, Swelling and Redness, Drainage, Nausea and/or Vomiting - Discharge Plan Prescriptions/Med Rec: Amoxicillin/Potassium Clav [Amox Tr-K Clv 875-125 mg Tab] 1 each PO BID #20 tablet Felodipine [Felodipine ER] 10 mg PO DAILY #30 dose Losartan [Cozaar] 100 mg PO DAILY #30 tablet Sodium Chloride 1,000 mg MC DAILY 10 Days #10 tablet.kera Home Medications: Home Meds Aspirin [Halfprin] 81 mg PO DAILY 06/06/14 [History] Dorzolamide/Timolol [Cosopt 2%-0.5% Ophth Soln] 1 drop EYELF BID 06/06/14 [ History] Fish Oil/[place]-3 Fatty Acids [Fish Oil] 500 mg PO DAILY 06/06/14 [History] Latanoprost 1 drop EYELF BEDTIME 06/06/14 [History] Potassium Chloride [Klor-Con 10] 10 meq PO DAILY 06/06/14 [History] Mirtazapine 15 mg PO DAILY 11/19/16 [History] Multivitamin with Minerals [Multiple Vitamin] 1 tab PO DAILY 11/19/16 [History] atorvaSTATin [Lipitor] 10 mg PO DAILY 11/19/16 [History] prednisoLONE Acetate [Pred Forte 1% Ophth Susp] 1 drop EYERT BID 08/02/17 [ History] Nystatin [Nystop] 100,000 units TOP TID #30 bottle 11/24/16 [Rx] Acetaminophen 325 mg PO Q6H PRN 04/21/17 [History] Amoxicillin/Potassium Clav [Amox Tr-K Clv 875-125 mg Tab] 1 each PO BID #20 tablet 04/25/17 [Rx] Felodipine [Felodipine ER] 10 mg PO DAILY #30 dose 04/25/17 [Rx] Losartan [Cozaar] 100 mg PO DAILY #30 tablet 04/25/17 [Rx] Sodium Chloride 1,000 mg MC DAILY 10 Days #10 tablet.ekra 04/25/17 [Rx] Patient Handouts: Amoxicillin; Clavulanic Acid tablets, Losartan tablets, Hyponatremia, Enalapril; Felodipine tablets, Sodium Chloride for oral solution Referrals: Brody Iqbal MD [Primary Care Provider] - (Please call the clinic on Thursday to set up a follow-up appointment with Dr. Iqbal in 1-2 weeks. Take the prescription for blood work with you and have it checked at the lab before your appointment so you may review it with Dr. Iqbal.) - Discharge Summary/Plan Comment Discharge Summary/Plan Comment: Patient will be needing home health. Due to her chronic hyponatremia she will have chronic weakness and is a fall risk causing her to be homebound. She will need skilled service for her medications, PT for strengthening and OT for home safety. She will be followed by her PCP Dr. Johnson. - Patient Data Vitals - Most Recent: Last Vital Signs Temp 36.1 C 04/25/17 11:31 Pulse 114 H 04/25/17 11:31 Resp 14 04/25/17 11:31 BP 161/72 H 04/25/17 11:31 Pulse Ox 97 04/25/17 11:31 Weight - Most Recent: 63.5 kg I&O - Last 24 hours: Intake & Output 04/24/17 04/25/17 04/25/17 22:59 06:59 14:59 Intake Total 450 1000 Output Total 595 211 Balance -145 789 Lab Results - Last 24 hrs: Laboratory Results - last 24 hr 04/25/17 04/25/17 04/25/17 Range/Units 06:09 06:09 06:09 WBC 14.47 H (4.0-11.0) K/uL RBC 3.37 L (4.30-5.90) M/uL Hgb 9.7 L (12.0-16.0) g/dL Hct 28.2 L (36.0-46.0) % MCV 83.7 (80.0-98.0) fL MCH 28.8 (27.0-32.0) pg MCHC 34.4 (31.0-37.0) g/dL RDW Std Deviation 48.9 (28.0-62.0) fl RDW Coeff of Dillon 16 H (11.0-15.0) % Plt Count 210 (150-400) K/uL MPV 9.50 (7.40-12.00) fL Neut % (Auto) 77.5 (48.0-80.0) % Lymph % (Auto) 10.4 L (16.0-40.0) % Dawson % (Auto) 11.5 (0.0-15.0) % Eos % (Auto) 0.3 (0.0-7.0) % Baso % (Auto) 0.3 (0.0-1.5) % Neut # (Auto) 11.2 H (1.4-5.7) K/uL Lymph # (Auto) 1.5 (0.6-2.4) K/uL Dawson # (Auto) 1.7 H (0.0-0.8) K/uL Eos # (Auto) 0.0 (0.0-0.7) K/uL Baso # (Auto) 0.0 (0.0-0.1) K/uL Nucleated RBC % 0.0 /100WBC Nucleated RBCs # 0 K/uL Smear Path Review SENT TO PATHOLOGY Sodium 128 L (136-146) mmol/L Potassium 3.3 L (3.5-5.1) mmol/L Chloride 98 (98-110) mmol/L Carbon Dioxide 21 (21-31) mmol/L BUN 9 (6.0-23.0) mg/dL Creatinine 0.6 (0.6-1.5) mg/dL Est Cr Clr Drug Dosing 55.97 mL/min Estimated GFR (MDRD) > 60.0 ml/min Glucose 97 (60-110) mg/dL Calcium 8.0 L (8.8-10.8) mg/dL Med Orders - Current: Current Medications Aspirin (Halfprin) 81 mg PO DAILY [facility] Last Admin: 04/25/17 08:37 Dose: 81 mg Atorvastatin Calcium (Lipitor) 10 mg PO DAILY [facility] Last Admin: 04/25/17 08:37 Dose: 10 mg Felodipine (Felodipine Er) 5 mg PO DAILY [facility] Last Admin: 04/25/17 09:31 Dose: 5 mg Sodium Chloride (Normal Saline) 1,000 mls @ 50 mls/hr IV ASDIRECTED [facility] Last Admin: 04/24/17 20:42 Dose: 50 mls/hr Ceftriaxone Sodium/Dextrose 1 (gm/ Premix) 50 mls @ 100 mls/hr IV Q24H [facility] Last Admin: 04/25/17 11:06 Dose: 100 mls/hr Levofloxacin (Levaquin) 750 mg PO Q24H [facility] Last Admin: 04/24/17 22:04 Dose: 750 mg Losartan Potassium (Cozaar) 100 mg PO DAILY [facility] Last Admin: 04/25/17 08:37 Dose: 100 mg Mirtazapine (Remeron) 15 mg PO DAILY [facility] Last Admin: 04/25/17 08:37 Dose: 15 mg Sodium Chloride (Saline Flush) 10 ml FLUSH ASDIRECTED PRN PRN Reason: Keep Vein Open Sodium Chloride (Saline Flush) 2.5 ml FLUSH ASDIRECTED PRN PRN Reason: Keep Vein Open Discontinued Medications Sodium Chloride (Normal Saline) 1,000 mls @ 999 mls/hr IV STAT ONE Stop: 04/21/17 15:22 Last Admin: 04/21/17 18:11 Dose: Not Given Levofloxacin (Levaquin) 750 mg PO Q2D@2100 [facility] Last Admin: 04/23/17 20:52 Dose: 750 mg Potassium Chloride (Klor-Con M20) 40 meq PO ONETIME ONE Stop: 04/21/17 17:55 Last Admin: 04/21/17 18:09 Dose: 40 meq Potassium Chloride (Potassium Chloride) 40 meq PO ONETIME ONE Stop: 04/23/17 08:55 Last Admin: 04/23/17 09:08 Dose: 40 meq Potassium Chloride (Klor-Con M20) 20 meq PO ONETIME ONE Stop: 04/23/17 08:55 Last Admin: 04/23/17 09:08 Dose: 20 meq Potassium Chloride (Klor-Con M20) 40 meq PO ONETIME ONE Stop: 04/25/17 07:44 Last Admin: 04/25/17 08:37 Dose: 40 meq *Q Meaningful Use (DIS) - VTE *Q VTE Criteria *Q: - Stroke *Q Stroke Criteria *Q: - AMI *Q AMI Criteria *Q:
== END 2017-04-25 14:50 | disposition home or self-care (01) | DRG 641 ==
LOC: MW.ED 14:18 → MW.MS 16:05
PROVIDERS: ADMIT Internal Medicine; ATTEND Internal Medicine
PROC: 02HV33Z Insertion of Infusion Device into Superior Vena Cava, Percutaneous Approach (ICD-10-PCS; principal; 2017-04-22)
DX: E87.1 Hypo-osmolality and hyponatremia (principal); E78.00 Pure hypercholesterolemia, unspecified; I12.9 Hypertensive chronic kidney disease with stage 1 through stage 4 chronic kidney disease, or unspecified chronic kidney disease; N18.9 Chronic kidney disease, unspecified; Z86.73 Personal history of transient ischemic attack (TIA), and cerebral infarction without residual deficits; D72.829 Elevated white blood cell count, unspecified; R42 Dizziness and giddiness; R41.0 Disorientation, unspecified; I10 Essential (primary) hypertension; Z88.8 Allergy status to other drugs, medicaments and biological substances; Z79.899 Other long term (current) drug therapy; Z79.82 Long term (current) use of aspirin; F32.9 Major depressive disorder, single episode, unspecified
CPT/HCPCS: 36415; 36569; 70450; 70450-26; 71045; 71045-26; 76937; 76937-26; 77001; 77001-26; 80048; 80053; 81001; 84300; 84484; 85025; 87086; 88104; 93005; 99284; 99285-25; A9270-GY; J0696; J7040

== ENCOUNTER 2017-05-11 13:47 | Inpatient (IN) | payer MEDICARE, BC ==
--- NOTE | 2017-05-11 13:59 | EDM.PDOC ---
ED HPI GENERAL MEDICAL PROBLEM - General Stated Complaint: OXYGEN LOW, LEG SWELLING Time Seen by Provider: 05/11/17 13:58 Source of Information: Reports: Patient History Limitations: Reports: No Limitations - History of Present Illness INITIAL COMMENTS - FREE TEXT/NARRATIVE: HISTORY AND PHYSICAL: History of present illness: Patient presents to the emergency room today with complaints of bilateral lower extremity swelling 3 days and low oxygen saturation (per Home Health nurse). She has noticed the lower extremity swollen over the past few days and did see Dr. Brody Iqbal at [place]. He increased her Lasix, adding 40 mg to her already existing dose for the next [address] Iqbal to inform him that her swelling has not improved, instead of increasing her Lasix he wanted her evaluated in the ED. She did have some previous hypotension and did not want the Lasix to drop her blood pressure further. Patient denies any chest pain, shortness of breath, abdominal pain, nausea, vomiting or diarrhea. History of hypertension, elevated cholesterol, recurrent pneumonia, osteoporosis , hyponatremia. Was recently admitted to the hospital on 04/25/2017 for hyponatremia. Sees follows closely with Dr. Brody Iqbal at [facility] and receives home health care. Review of systems: As per history of present illness and below otherwise all systems reviewed and negative. Past medical history: As per history of present illness and as reviewed below otherwise noncontributory. Surgical history: As per history of present illness and as reviewed below otherwise noncontributory. Social history: No reported history of drug or alcohol abuse. Family history: As per history of present illness and as reviewed below otherwise noncontributory. Physical exam: Gen.: Nontoxic-appearing 87-year-old female. Alert and oriented. Appears in no acute distress. HEENT: Atraumatic, normocephalic, pupils reactive, negative for conjunctival pallor or scleral icterus, mucous membranes moist, throat clear, neck supple, tympanic membrane clear/normal bilaterally, hard of hearing. No lymphadenopathy , nontender, trachea midline. Lungs: Clear to auscultation, breath sounds equal bilaterally, chest nontender. Heart: S1S2, regular rate and rhythm Abdomen: Soft, nondistended, nontender. Negative for masses or hepatosplenomegaly. Negative for costovertebral tenderness. Pelvis: Stable nontender. Genitourinary: Deferred. Rectal: Deferred. Extremities: Atraumatic, moves all extremities per self without difficulty or deficits, negative for cords or calf pain. +2 pedal edema, pitting bilaterally. Denies any numbness or tingling to the distal extremities. Biliary refill less than 3 seconds bilaterally. Neurovascular unremarkable. Neuro: Awake, alert, oriented. Cranial nerves II through XII unremarkable. Cerebellum unremarkable. Motor and sensory unremarkable throughout. Exam nonfocal. Skin: Pale, dry, intact. No overt lesions, rashes or open sores. Upon arrival the patient's oxygen saturation is 89-90% on room air. The patient' s significant other is at the bedside to assist with answering questions as she is hard of hearing. She denies any chest pain or shortness of breath. States she does get frequent pneumonias. Lab values were reviewed by me. Vital signs were reviewed by me. Chest x-ray shows a bibasilar perihilar infiltrates, can not exclude pneumonia. 1525- Dr. Mays agreed to accept this patient as an inpatient with telemetry for hypoxemia and congestive heart failure. Davon is aware of x-ray reading. No antibiotics were intiated at this time. Patient is aware and agreeable to plan of care. Diagnostics: CBC, CMP, influenza, troponin, BNP, ABG, EKG, 2 view chest x-ray Therapeutics: Saline lock, library monitor Impression: Hypoxemia, CHF, questionable pneumonia Plan: Inpatient admission to med/surg with Telemtry Definitive disposition and diagnosis as appropriate pending reevaluation and review of above. Duration: Day(s): Location: Reports: Lower Extremity, Left, Lower Extremity, Right - Related Data Allergies Allergy/AdvReac Type Severity Reaction Status Date / Time prochlorperazine edisylate Allergy Cannot Verified 05/11/17 13:57 [From Compazine] Remember prochlorperazine maleate Allergy Cannot Verified 05/11/17 13:57 [From Compazine] Remember Home Meds: Home Meds Aspirin [Halfprin] 81 mg PO DAILY 06/06/14 [History] Dorzolamide/Timolol [Cosopt 2%-0.5% Ophth Soln] 1 drop EYELF BID 06/06/14 [ History] Fish Oil/[place]-3 Fatty Acids [Fish Oil] 500 mg PO DAILY 06/06/14 [History] Latanoprost 1 drop EYELF BEDTIME 06/06/14 [History] Multivitamin with Minerals [Multiple Vitamin] 1 tab PO DAILY 11/19/16 [History] atorvaSTATin [Lipitor] 10 mg PO DAILY 11/19/16 [History] prednisoLONE Acetate [Pred Forte 1% Ophth Susp] 1 drop EYERT BID 11/19/16 [ History] Nystatin [Nystop] 100,000 units TOP TID #30 bottle 11/24/16 [Rx] Acetaminophen 325 mg PO Q6H PRN 04/21/17 [History] Felodipine [Felodipine ER] 10 mg PO DAILY #30 dose 04/25/17 [Rx] Losartan [Cozaar] 100 mg PO DAILY #30 tablet 04/25/17 [Rx] Sodium Chloride 1,000 mg MC DAILY 10 Days #10 tablet.kera 04/25/17 [Rx] Ferrous Sulfate 324 mg PO DAILY 05/11/17 [History] Furosemide [Lasix] 40 mg PO DAILY 05/11/17 [History] Omeprazole 20 mg PO DAILY 05/11/17 [History] Past Medical History HEENT History: Reports: Glaucoma Cardiovascular History: Reports: Hypertension 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, Recurrent HAND [employer]ER History: Reports: Other (See Below) Other OB/BYN History: hysterectomy Musculoskeletal History: Reports: Osteoporosis Psychiatric History: Reports: Anxiety Hematologic History: Reports: None Immunologic History: Reports: None Oncologic (Cancer) History: Reports: None Dermatologic History: Reports: Other (See Below) Other Dermatologic History: yeast infections - Past Surgical History HEENT Surgical History: Reports: Cataract Surgery Cardiovascular Surgical History: Reports: None Respiratory Surgical History: Reports: None Musculoskeletal Surgical History: Reports: None Dermatological Surgical History: Reports: None Social & Family History - Family History HEENT: Reports: Glaucoma Cardiac: Reports: Hypertension Respiratory: Reports: COPD Musculoskeletal: Reports: Arthritis, Osteoporosis - Tobacco Use Smoking Status *Q: Never Smoker Second Hand Smoke Exposure: Yes - Caffeine Use Caffeine Use: Reports: Coffee - Alcohol Use Days Per Week of Alcohol Use: 0 - Recreational Drug Use Recreational Drug Use: No ED ROS GENERAL - Review of Systems Review Of Systems: ROS reveals no pertinent complaints other than HPI. ED EXAM, GENERAL - Physical Exam Exam: See Below (See dictation) Course - Vital Signs Last Recorded V/S: Last Vital Signs Temp 97.4 F 05/11/17 14:04 Pulse 80 05/11/17 14:35 Resp 13 05/11/17 14:35 BP 109/56 L 05/11/17 14:35 Pulse Ox 95 05/11/17 14:35 - Orders/Labs/Meds Orders: Active Orders 24 hr Category Date Time Status Admission Status [Patient Status] [ADT] Stat ADT 05/11/17 15:24 Ordered EKG 12 Lead [EKG Documentation Completion] [RC] STAT Care 05/11/17 13:52 Active Oxygen Therapy, ED [RC] ASDIRECTED Care 05/11/17 14:18 Active UA W/MICROSCOPIC [URIN] Stat Lab 05/11/17 14:15 Uncollected Labs: Laboratory Tests 05/11/17 05/11/17 05/11/17 Range/Units 14:10 14:10 14:10 WBC 12.21 H (4.0-11.0) K/uL RBC 3.87 L (4.30-5.90) M/uL Hgb 11.1 L (12.0-16.0) g/dL Hct 32.6 L (36.0-46.0) % MCV 84.2 (80.0-98.0) fL MCH 28.7 (27.0-32.0) pg MCHC 34.0 (31.0-37.0) g/dL RDW Std Deviation 50.0 (28.0-62.0) fl RDW Coeff of Dillon 17 H (11.0-15.0) % Plt Count 415 H (150-400) K/uL MPV 10.60 (7.40-12.00) fL Neut % (Auto) 78.7 (48.0-80.0) % Lymph % (Auto) 12.0 L (16.0-40.0) % [place]anco % (Auto) 8.7 (0.0-15.0) % Eos % (Auto) 0.5 (0.0-7.0) % Baso % (Auto) 0.1 (0.0-1.5) % Neut # (Auto) 9.6 H (1.4-5.7) K/uL Lymph # (Auto) 1.5 (0.6-2.4) K/uL [place] # (Auto) 1.1 H (0.0-0.8) K/uL Eos # (Auto) 0.1 (0.0-0.7) K/uL Baso # (Auto) 0.0 (0.0-0.1) K/uL Nucleated RBC % 0.0 /100WBC Nucleated RBCs # 0 K/uL ABG pH (7.35-7.45) ABG pCO2 (35-45) mmHG ABG pO2 (75-100) mmHG ABG HCO3 (22-26) mEq/L ABG Total CO2 ABG Base Excess (-2.0-2.0) Sodium 126 L (136-146) mmol/L Potassium 3.8 (3.5-5.1) mmol/L Chloride 91 L (98-110) mmol/L Carbon Dioxide 23 (21-31) mmol/L BUN 12 (6.0-23.0) mg/dL Creatinine 0.9 (0.6-1.5) mg/dL Est Cr Clr Drug Dosing 32.60 mL/min Estimated GFR (MDRD) 59.1 ml/min Glucose 103 (60-110) mg/dL Calcium 8.7 L (8.8-10.8) mg/dL Total Bilirubin 0.4 (0.1-1.5) mg/dL AST 23 (5-40) IU/L ALT 14 (8-54) IU/L Alkaline Phosphatase 76 (40-150) Troponin I (0.0-0.29) NG/ML B-Natriuretic Peptide > 3306 H (<100) PG/ML Total Protein 6.2 (6.0-8.0) g/dL Albumin 3.3 L (3.4-4.8) g/dL Globulin 2.9 (2.0-3.5) g/dL Albumin/Globulin Ratio 1.1 L (1.3-2.8) 05/11/17 05/11/17 Range/Units 14:10 14:24 WBC (4.0-11.0) K/uL RBC (4.30-5.90) M/uL Hgb (12.0-16.0) g/dL Hct (36.0-46.0) % MCV (80.0-98.0) fL MCH (27.0-32.0) pg MCHC (31.0-37.0) g/dL RDW Std Deviation (28.0-62.0) fl RDW Coeff of Dillon (11.0-15.0) % Plt Count (150-400) K/uL MPV (7.40-12.00) fL Neut % (Auto) (48.0-80.0) % Lymph % (Auto) (16.0-40.0) % Blanco % (Auto) (0.0-15.0) % Eos % (Auto) (0.0-7.0) % Baso % (Auto) (0.0-1.5) % Neut # (Auto) (1.4-5.7) K/uL Lymph # (Auto) (0.6-2.4) K/uL Blanco # (Auto) (0.0-0.8) K/uL Eos # (Auto) (0.0-0.7) K/uL Baso # (Auto) (0.0-0.1) K/uL Nucleated RBC % /100WBC Nucleated RBCs # K/uL ABG pH 7.458 H (7.35-7.45) ABG pCO2 38 (35-45) mmHG ABG pO2 35 L* (75-100) mmHG ABG HCO3 27 H (22-26) mEq/L ABG Total CO2 25.1 ABG Base Excess 3.0 H (-2.0-2.0) Sodium (136-146) mmol/L Potassium (3.5-5.1) mmol/L Chloride (98-110) mmol/L Carbon Dioxide (21-31) mmol/L BUN (6.0-23.0) mg/dL Creatinine (0.6-1.5) mg/dL Est Cr Clr Drug Dosing mL/min Estimated GFR (MDRD) ml/min Glucose (60-110) mg/dL Calcium (8.8-10.8) mg/dL Total Bilirubin (0.1-1.5) mg/dL AST (5-40) IU/L ALT (8-54) IU/L Alkaline Phosphatase (40-150) Troponin I 0.21 (0.0-0.29) NG/ML B-Natriuretic Peptide (<100) PG/ML Total Protein (6.0-8.0) g/dL Albumin (3.4-4.8) g/dL Globulin (2.0-3.5) g/dL Albumin/Globulin Ratio (1.3-2.8) Departure - Departure Time of Disposition: 15:34 Disposition: Admitted As Inpatient 65 Clinical Impression: Hypoxemia CHF (congestive heart failure) Qualifiers: Congestive heart failure type: unspecified congestive heart failure type Congestive heart failure chronicity: acute Qualified Code(s): I50.9 - Heart failure, unspecified - Discharge Information Referrals: Brody Iqbal MD [Primary Care Provider] - - My Orders Last 24 Hours: My Active Orders 05/11/17 13:52 EKG 12 Lead [EKG Documentation Completion] [RC] STAT 05/11/17 14:15 UA W/MICROSCOPIC [URIN] Stat 05/11/17 14:18 Oxygen Therapy, ED [] ASDIRECTED 05/11/17 15:24 Admission Status [Patient Status] [ADT] Stat - Assessment/Plan Last 24 Hours: My Active Orders 05/11/17 13:52 EKG 12 Lead [EKG Documentation Completion] [RC] STAT 05/11/17 14:15 UA W/MICROSCOPIC [URIN] Stat 05/11/17 14:18 Oxygen Therapy, ED [RC] ASDIRECTED 05/11/17 15:24 Admission Status [Patient Status] [ADT] Stat
--- NOTE | 2017-05-11 15:12 | CR ---
EXAMINATION: Two-view chest (PA and Lateral views). HISTORY: Low O2 sat. FINDINGS: The trachea is midline. The cardiomediastinal silhouette is within normal limits. Mild bibasilar atel ectasis and/or infiltrate, right greater than left. A trace right pleural effusion is not excluded. Osseous structures appear osteopenic. There is thoracic kyphosis. Old right-sided rib fractures. IMPRESSION: Mild bibasilar atelectasis and/or infiltrates, right greater left. Pneumonia is not excluded.
--- NOTE | 2017-05-11 16:08 | PCM.SN ---
- Free Text/Narrative Note: Called by nursing for patient with known history of difficult PIV access. 24g PIV started to Rt hand, secured with tape and tegaderm. Flushes easily. 22g PIV start by Liudmila TOBIAS to Lt wrist, secured with tape and tegaderm.
--- NOTE | 2017-05-11 16:18 | PCM.HP ---
H&P History of Present Illness - General Date of Service: 05/11/17 Admit Problem/Dx: Admission Diagnosis/Problem Admission Diagnosis/Problem Hypoxemia - History of Present Illness Initial Comments - Free Text/Narative: 87-year-old female with a past medical history significant for hypertension, recent community-acquired pneumonia resulting in hospitalization and chronic hyponatremia presents today with worsening leg swelling. Patient was advised to present to the emergency department by her primary care provider after concerns of hypotension and worsening leg swelling. She was being treated with lasix orally for the past 4 days but there were concerns given her age and possible kidney function. In the ER, patient was also complaining of mild shortness of breath. Denied chest pain, fever, chills, nausea. no change in appetite. ER Course CBC: Leukocytosis 12,000 BMP: Na 126, Cl 91, Ca2 8.7 BNP: 3306 CXR: mild bibasilar atelectasis/infiltrate ABG: pH 7.4, pO2 37 - Related Data Allergies/Adverse Reactions: Allergies Allergy/AdvReac Type Severity Reaction Status Date / Time prochlorperazine edisylate Allergy Cannot Verified 05/11/17 13:57 [From Compazine] Remember prochlorperazine maleate Allergy Cannot Verified 05/11/17 13:57 [From Compazine] Remember Home Medications: Home Meds Aspirin [Halfprin] 81 mg PO DAILY 06/06/14 [History] Dorzolamide/Timolol [Cosopt 2%-0.5% Ophth Soln] 1 drop EYELF BID 06/06/14 [ History] Fish Oil/[place]ks-3 Fatty Acids [Fish Oil] 500 mg PO DAILY 06/06/14 [History] Latanoprost 1 drop EYELF BEDTIME 06/06/14 [History] Multivitamin with Minerals [Multiple Vitamin] 1 tab PO DAILY 11/19/16 [History] atorvaSTATin [Lipitor] 10 mg PO DAILY 11/19/16 [History] prednisoLONE Acetate [Pred Forte 1% Ophth Susp] 1 drop EYERT BID 11/19/16 [ History] Nystatin [Nystop] 100,000 units TOP TID #30 bottle 11/24/16 [Rx] Acetaminophen 325 mg PO Q6H PRN 04/21/17 [History] Felodipine [Felodipine ER] 10 mg PO DAILY #30 dose 04/25/17 [Rx] Losartan [Cozaar] 100 mg PO DAILY #30 tablet 04/25/17 [Rx] Sodium Chloride 1,000 mg MC DAILY 10 Days #10 tablet.kera 04/25/17 [Rx] Ferrous Sulfate 324 mg PO DAILY 05/11/17 [History] Furosemide [Lasix] 40 mg PO DAILY 05/11/17 [History] Omeprazole 20 mg PO DAILY 05/11/17 [History] Past Medical History HEENT History: Reports: Glaucoma Cardiovascular History: Reports: Hypertension 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, Recurrent MANAGER OF MEDICAL History: Reports: Other (See Below) Other OB/BYN History: hysterectomy Musculoskeletal History: Reports: Osteoporosis Psychiatric History: Reports: Anxiety Hematologic History: Reports: None Immunologic History: Reports: None Oncologic (Cancer) History: Reports: None Dermatologic History: Reports: Other (See Below) Other Dermatologic History: yeast infections - Past Surgical History HEENT Surgical History: Reports: Cataract Surgery Cardiovascular Surgical History: Reports: None Respiratory Surgical History: Reports: None Musculoskeletal Surgical History: Reports: None Dermatological Surgical History: Reports: None Social & Family History - Family History HEENT: Reports: Glaucoma Cardiac: Reports: Hypertension Respiratory: Reports: COPD Musculoskeletal: Reports: Arthritis, Osteoporosis - Tobacco Use Smoking Status *Q: Never Smoker Second Hand Smoke Exposure: Yes - Caffeine Use Caffeine Use: Reports: Coffee - Alcohol Use Days Per Week of Alcohol Use: 0 - Recreational Drug Use Recreational Drug Use: No H&P Review of Systems - Review of Systems: Review Of Systems: See Below General: Reports: No Symptoms HEENT: Reports: No Symptoms Pulmonary: Reports: Shortness of Breath. Denies: Cough, Sputum, Hemoptysis Cardiovascular: Reports: Orthopnea, Edema Gastrointestinal: Reports: No Symptoms Genitourinary: Reports: No Symptoms Musculoskeletal: Reports: Leg Pain Skin: Reports: No Symptoms Psychiatric: Reports: No Symptoms Neurological: Reports: No Symptoms Hematologic/Lymphatic: Reports: No Symptoms Immunologic: Reports: No Symptoms Exam - Exam Exam: See Below - Vital Signs Vital Signs: Last Vital Signs Temp 36.3 C 05/11/17 14:04 Pulse 85 05/11/17 15:50 Resp 14 05/11/17 15:50 BP 112/52 L 05/11/17 15:50 Pulse Ox 96 05/11/17 15:50 Weight: 64.2 kg - Exam Quality Assessment: Supplemental Oxygen General: Alert, Lethargic Neck: Supple, Trachea Midline Lungs: Clear to Auscultation, Normal Respiratory Effort Cardiovascular: Regular Rate, Systolic Murmur GI/Abdominal Exam: Soft Extremities: Normal Inspection, Non-Tender, Pedal Edema (2+), Other (no calf tenderness bilaterally) Peripheral Pulses: 1+: Posterior Tibial (L), Posterior Tibial (R) Skin: Warm Neuro Extensive - Mental Status: Alert, Oriented x3 Psychiatric: Alert, Normal Affect, Normal Mood - Patient Data Result Diagrams: 05/11/17 14:10 05/11/17 14:10 Matteo Results Last 24 hrs: Microbiology 05/11/17 16:01 Anaerobic Blood Culture - Final Blood - Venous *Q Meaningful Use (ADM) - VTE *Q VTE Criteria *Q: - Stroke *Q Stroke Criteria *Q: - AMI *Q AMI Criteria *Q: Problem List Initiated/Reviewed/Updated: Yes Orders Last 24hrs: Active Orders 24 hr Category Date Time Status CULTURE BLOOD [BC] Stat Lab 05/11/17 15:59 Ordered CULTURE BLOOD [BC] Stat Lab 05/11/17 16:01 Results Blood Culture x2 Reflex Set [OM.PC] Stat Oth 05/11/17 15:59 Ordered Assessment/Plan Comment:: Assessment: #1. Acute hypoxic respiratory failure secondary to CHF Exacerbation #2. Suspected pneumonia on CXR #3. Mild leukocytosis #3. Chronic hyponatremia #4. History of hypertension, hyponatremia, GERD, HLD Plan: #1. Admit to floor for observation #2. Vital signs per floor routine #3. DNR/DNI #4. Strict I's O's. Regular diet, fluid restriction <1500mL. Daily weights #5. Lovenox for DVT prophylaxis #6. IV Levaquin 750mg q24h. We'll hold off on full triple antibiotic coverage for a hospital acquired pneumonia given the CXR and the fact that her white count is lower than it was during the last admission. We may need to start more aggressive antibiotic coverage if her respiratory status or white count worsens. #7. IV Lasix 40mg x1 #8. Repeat CBC, BMP tomorrow AM #9. Restart home medications. Hold off blood pressure medications given concern for hypotension and may need aggressive diuresis.
[2017-05-11] MEDS ORDERED: Acetaminophen 325 MG Tab PO PRN (16:57)
[2017-05-11] MEDS ORDERED: Furosemide 40 MG/4 ML VIAL IVPUSH ONE (17:02)
[2017-05-11] MEDS ORDERED: Levofloxacin/Dextrose 5%-Water 750 MG in Premix Bag 1 BAG IV SCH (18:00)
[2017-05-11] MEDS ORDERED: Pneumococcal Polyvalent-23 Vaccine 0.5 ML SDV IM ONE (18:34)
[2017-05-11] MEDS: Heparin Sodium 5,000 Units/ML Vial SUBCUT SCH (21:52)
[2017-05-11] MEDS: Dorzolamide/Timolol 2%-0.5% Ophth Soln 10 ML Bottle EYELF SCH (21:53)
[2017-05-11] MEDS: prednisoLONE Acetate 1% Ophth Susp 5 ML Bottle EYERT SCH (21:53)
[2017-05-11] MEDS: Latanoprost 0.005% Ophth Soln 2.5 ML Bottle EYELF SCH (21:53)
[2017-05-11] MEDS: Nystatin Topical Powder 15 GM Bottle TOP SCH (22:02)
[2017-05-12] MEDS: Nystatin Topical Powder 15 GM Bottle TOP SCH ×3 (05:45→22:30)
[2017-05-12] MEDS: Omeprazole 20 MG Cap.CR PO SCH (06:53)
[2017-05-12] MEDS: Heparin Sodium 5,000 Units/ML Vial SUBCUT SCH ×3 (06:54→22:54)
[2017-05-12 07:50] LABS: CHLORIDE,CL 91 mmol/L (98-110); SODIUM,NA 128 mmol/L (136-146)
[2017-05-12] MEDS ORDERED: Furosemide 40 MG/4 ML VIAL IVPUSH ONE (08:58)
[2017-05-12] MEDS: atorvaSTATin 10 MG Tab PO SCH (09:07)
[2017-05-12] MEDS: Ferrous Sulfate 325 MG Tab PO SCH (09:07)
[2017-05-12] MEDS: Aspirin 81 MG Tab.EC PO SCH (09:07)
[2017-05-12] MEDS: Multivitamins with Iron/Calcium/Folic Acid/Minerals Tab PO SCH (09:07)
[2017-05-12] MEDS: Sodium Chloride 1 GM Tab PO SCH (09:07)
[2017-05-12] MEDS: Fish Oil/Omega-3 Fatty Acids 1 Gm Cap PO SCH (09:07)
[2017-05-12] MEDS: Dorzolamide/Timolol 2%-0.5% Ophth Soln 10 ML Bottle EYELF SCH ×2 (09:14→20:30)
[2017-05-12] MEDS: prednisoLONE Acetate 1% Ophth Susp 5 ML Bottle EYERT SCH ×2 (09:14→20:31)
--- NOTE | 2017-05-12 12:42 | PCM.PN ---
- General Info Date of Service: 05/12/17 Subjective Update: Patient tells me that her breathing status has improved greatly. She also tells me that the leg pain that she was experiencing also has subsided. She had no overnight events. She denies any chest pain, nausea or vomiting. Denies any numbness or tingling. - Review of Systems General: Reports: Other (See history of present illness) - Patient Data Vitals - Most Recent: Last Vital Signs Temp 36.4 C 05/12/17 11:35 Pulse 78 05/12/17 11:35 Resp 18 05/12/17 11:35 BP 115/63 05/12/17 11:35 Pulse Ox 98 05/12/17 11:35 Weight - Most Recent: 66.043 kg I&O - Last 24 Hours: Intake & Output 05/11/17 05/12/17 05/12/17 22:59 06:59 14:59 Intake Total 200 Output Total 0 Balance 200 Lab Results Last 24 Hours: Laboratory Results - last 24 hr 05/12/17 05/12/17 05/12/17 Range/Units 05:45 07:22 07:22 WBC 11.99 H (4.0-11.0) K/uL RBC 3.61 L (4.30-5.90) M/uL Hgb 10.4 L (12.0-16.0) g/dL Hct 30.9 L (36.0-46.0) % MCV 85.6 (80.0-98.0) fL MCH 28.8 (27.0-32.0) pg MCHC 33.7 (31.0-37.0) g/dL RDW Std Deviation 51.2 (28.0-62.0) fl RDW Coeff of Dillon 16 H (11.0-15.0) % Plt Count 415 H (150-400) K/uL MPV 9.80 (7.40-12.00) fL Neut % (Auto) 81.4 H (48.0-80.0) % Lymph % (Auto) 10.7 L (16.0-40.0) % [place] % (Auto) 7.7 (0.0-15.0) % Eos % (Auto) 0.0 (0.0-7.0) % Baso % (Auto) 0.2 (0.0-1.5) % Neut # (Auto) 9.8 H (1.4-5.7) K/uL Lymph # (Auto) 1.3 (0.6-2.4) K/uL [place]field # (Auto) 0.9 H (0.0-0.8) K/uL Eos # (Auto) 0.0 (0.0-0.7) K/uL Baso # (Auto) 0.0 (0.0-0.1) K/uL Sodium 128 L (136-146) mmol/L Potassium 3.8 (3.5-5.1) mmol/L Chloride 91 L (98-110) mmol/L Carbon Dioxide 27 (21-31) mmol/L BUN 11 (6.0-23.0) mg/dL Creatinine 0.8 (0.6-1.5) mg/dL Est Cr Clr Drug Dosing 42.28 mL/min Estimated GFR (MDRD) > 60.0 ml/min Glucose 83 (60-110) mg/dL Calcium 8.5 L (8.8-10.8) mg/dL Urine Color YELLOW Urine Appearance CLEAR Urine pH 6.0 (5.0-8.0) Ur Specific [place] 1.010 (1.001-1.035) Urine Protein NEGATIVE (NEGATIVE) mg/dL Urine Glucose (UA) NEGATIVE (NEGATIVE) mg/dL Urine Ketones TRACE H (NEGATIVE) mg/dL Urine Occult Blood NEGATIVE (NEGATIVE) Urine Nitrite NEGATIVE (NEGATIVE) Urine Bilirubin NEGATIVE (NEGATIVE) Urine Urobilinogen 0.2 (<2.0) EU/dL Ur Leukocyte Esterase NEGATIVE (NEGATIVE) Urine RBC 0-1 (0-2/HPF) Urine WBC 1-2 (0-5/HPF) Ur Epithelial Cells FEW (NONE-FEW) Urine Bacteria RARE (NEGATIVE) Matteo Results Last 24 Hours: Microbiology 05/11/17 16:01 Anaerobic Blood Culture - Final Blood - Venous Med Orders - Current: Current Medications Acetaminophen (Tylenol) 325 mg PO Q6H PRN PRN Reason: Pain Aspirin (Halfprin) 81 mg PO DAILY [facility] Last Admin: 05/12/17 09:07 Dose: 81 mg Atorvastatin Calcium (Lipitor) 10 mg PO DAILY [facility] Last Admin: 05/12/17 09:07 Dose: 10 mg Dorzolamide/Timolol (Cosopt 2%-0.5% Ophth Soln) 0 ml EYELF BID [facility] Last Admin: 05/12/17 09:14 Dose: 1 drop Ferrous Sulfate (Ferrous Sulfate) 325 mg PO DAILY [facility] Last Admin: 05/12/17 09:07 Dose: 325 mg Fish Oil (Fish Oil) 1 gm PO DAILY [facility] Last Admin: 05/12/17 09:07 Dose: 1 gm Heparin Sodium (Porcine) (Heparin Sodium) 5,000 units SUBCUT Q8H [facility] Last Admin: 05/12/17 06:54 Dose: 5,000 units Levofloxacin/Dextrose 750 mg/ (Premix) 150 mls @ 100 mls/hr IV Q48H [facility] Latanoprost (Xalatan 0.005% Ophth Soln) 0 ml EYELF BEDTIME [facility] Last Admin: 05/11/17 21:53 Dose: 1 drop Multivitamins/Minerals (Thera M Plus) 1 tab PO DAILY [facility] Last Admin: 05/12/17 09:07 Dose: 1 tab Nystatin (Nystop) 0 gm TOP TID [facility] Last Admin: 05/12/17 05:45 Dose: 1 applic Omeprazole (Omeprazole) 20 mg PO ACBREAKFAST [facility] Last Admin: 05/12/17 06:53 Dose: 20 mg Prednisolone Acetate (Pred Forte 1% Ophth Susp) 0 ml EYERT BID [facility] Last Admin: 05/12/17 09:14 Dose: 1 drop Sodium Chloride (Sodium Chloride) 1 gm PO DAILY [facility] Last Admin: 05/12/17 09:07 Dose: 1 gm Discontinued Medications Furosemide (Lasix) 40 mg IVPUSH NOW ONE Stop: 05/11/17 17:03 Last Admin: 05/11/17 17:29 Dose: 40 mg Furosemide (Lasix) 40 mg IVPUSH NOW ONE Stop: 05/12/17 08:59 Last Admin: 05/12/17 09:31 Dose: 40 mg Levofloxacin/Dextrose 750 mg/ (Premix) 150 mls @ 100 mls/hr IV Q24H [facility] Last Admin: 05/11/17 18:41 Dose: 100 mls/hr Pneumococcal Polyvalent Vaccine (Pneumovax 23) 0.5 ml IM .ONCE ONE Stop: 05/11/17 18:35 - Exam Quality Assessment: Supplemental Oxygen General: Alert, Oriented, Cooperative HEENT: Pupils Equal, Pupils Reactive Neck: Supple Lungs: Clear to Auscultation, Normal Respiratory Effort Cardiovascular: Regular Rate, Regular Rhythm GI/Abdominal Exam: Normal Bowel Sounds, Soft Extremities: Pedal Edema (2+) Skin: Warm Psy/Mental Status: Alert, Normal Affect - Problem List Review Problem List Initiated/Reviewed/Updated: Yes - My Orders Last 24 Hours: My Active Orders 05/11/17 16:55 Oxygen Therapy [RC] PRN Up ad Maria Ines [RC] ASDIRECTED VTE/DVT Education [RC] PER UNIT ROUTINE Vital Signs [RC] Q4H Resuscitation Status Routine 05/11/17 16:57 Acetaminophen [Tylenol] 325 mg PO Q6H PRN 05/11/17 17:03 Height and Weight [RC] DAILY Intake and Output Strict [RC] Q12H 05/11/17 21:00 Dorzolamide/Timolol [Cosopt 2%-0.5% Ophth Soln] 0 ml EYELF BID Latanoprost [Xalatan 0.005% Ophth Soln] 0 ml EYELF BEDTIME prednisoLONE Acetate [Pred Forte 1% Ophth Susp] 0 ml EYERT BID 05/11/17 22:00 Heparin Sodium 5,000 units SUBCUT Q8H Nystatin [Nystop] 0 gm TOP TID 05/12/17 07:30 Omeprazole 20 mg PO ACBREAKFAST 05/12/17 09:00 Aspirin [Halfprin] 81 mg PO DAILY Ferrous Sulfate 325 mg PO DAILY Fish Oil/[place]-3 Fatty Acids [Fish Oil] 1 gm PO DAILY Multivitamins w-Iron/Ca/FA/Min [Thera M Plus] 1 tab PO DAILY Sodium Chloride 1 gm PO DAILY atorvaSTATin [Lipitor] 10 mg PO DAILY 05/12/17 09:09 JENNI Hose [Antiembolic Hose] [OM.PC] Routine 05/12/17 09:10 Antiembolic Devices [RC] PER UNIT ROUTINE - Plan Plan:: Assessment: #1. Acute hypoxic respiratory failure secondary to CHF Exacerbation #2. Suspected pneumonia on CXR #3. Mild leukocytosis -improving #3. Chronic hyponatremia - improving #4. History of hypertension, hyponatremia, GERD, HLD Plan: #1. 40 mg IV Lasix once #2. Echocardiogram #3. Continue fluid restriction. Strict I's and O's and daily weight #4. JENNI hose application #5. There are concerns about up a case management about this patient's care that is currently being provided at her home by her son. We will be placing the patient at [facility] upon discharge. This may be tomorrow.
[2017-05-12] MEDS ORDERED: Sodium Chloride 1 GM Tab PO SCH (12:45)
[2017-05-12] MEDS: Latanoprost 0.005% Ophth Soln 2.5 ML Bottle EYELF SCH (20:29)
[2017-05-13 06:26] LABS: CHLORIDE,CL 92 mmol/L (98-110); SODIUM,NA 131 mmol/L (136-146)
[2017-05-13] MEDS: Omeprazole 20 MG Cap.CR PO SCH (06:33)
[2017-05-13] MEDS: Nystatin Topical Powder 15 GM Bottle TOP SCH ×3 (06:33→21:21)
[2017-05-13] MEDS: Heparin Sodium 5,000 Units/ML Vial SUBCUT SCH ×3 (06:33→21:21)
[2017-05-13] MEDS ORDERED: Potassium Chloride 20 MEQ Tab.ER PO ONE (08:14)
[2017-05-13] MEDS ORDERED: Furosemide 40 MG/4 ML VIAL IVPUSH ONE (08:16)
[2017-05-13] MEDS: Ferrous Sulfate 325 MG Tab PO SCH (08:52)
[2017-05-13] MEDS: Sodium Chloride 1 GM Tab PO SCH (08:52)
[2017-05-13] MEDS: Aspirin 81 MG Tab.EC PO SCH (08:52)
[2017-05-13] MEDS: atorvaSTATin 10 MG Tab PO SCH (08:52)
[2017-05-13] MEDS: Fish Oil/Omega-3 Fatty Acids 1 Gm Cap PO SCH (08:52)
[2017-05-13] MEDS: prednisoLONE Acetate 1% Ophth Susp 5 ML Bottle EYERT SCH ×2 (08:53→21:19)
[2017-05-13] MEDS: Dorzolamide/Timolol 2%-0.5% Ophth Soln 10 ML Bottle EYELF SCH ×2 (08:53→21:18)
[2017-05-13] MEDS: Multivitamins with Iron/Calcium/Folic Acid/Minerals Tab PO SCH (09:47)
--- NOTE | 2017-05-13 13:28 | PCM.PN ---
- General Info Date of Service: 05/13/17 Subjective Update: She states that her breathing status has improved. In the last 24 hours, it looks like she has minimal diuresis. Still has significant bilateral peripheral edema in the lower extremities. However, the patient has been able to breathe without oxygen supplementation. She has been also able to ambulate. Denies any leg pain, chest pain, shortness of breath or palpitations. Echocardiogram was obtained and results are pending. - Review of Systems General: Reports: Other (See history of present illness) - Patient Data Vitals - Most Recent: Last Vital Signs Temp 36.3 C 05/13/17 12:00 Pulse 90 05/13/17 12:00 Resp 16 05/13/17 12:00 BP 130/71 05/13/17 12:00 Pulse Ox 94 L 05/13/17 12:00 Weight - Most Recent: 66.224 kg I&O - Last 24 Hours: Intake & Output 05/12/17 05/13/17 05/13/17 22:59 06:59 14:59 Intake Total 500 300 Output Total 253 682 Balance 247 -382 Lab Results Last 24 Hours: Laboratory Results - last 24 hr 05/13/17 05/13/17 Range/Units 05:05 05:05 WBC 10.33 (4.0-11.0) K/uL RBC 3.24 L (4.30-5.90) M/uL Hgb 9.4 L (12.0-16.0) g/dL Hct 27.6 L (36.0-46.0) % MCV 85.2 (80.0-98.0) fL MCH 29.0 (27.0-32.0) pg MCHC 34.1 (31.0-37.0) g/dL RDW Std Deviation 51.2 (28.0-62.0) fl RDW Coeff of Dillon 16 H (11.0-15.0) % Plt Count 383 (150-400) K/uL MPV 10.80 (7.40-12.00) fL Neut % (Auto) 73.4 (48.0-80.0) % Lymph % (Auto) 16.1 (16.0-40.0) % Hand % (Auto) 8.9 (0.0-15.0) % Eos % (Auto) 1.4 (0.0-7.0) % Baso % (Auto) 0.2 (0.0-1.5) % Neut # (Auto) 7.6 H (1.4-5.7) K/uL Lymph # (Auto) 1.7 (0.6-2.4) K/uL Hand # (Auto) 0.9 H (0.0-0.8) K/uL Eos # (Auto) 0.1 (0.0-0.7) K/uL Baso # (Auto) 0.0 (0.0-0.1) K/uL Nucleated RBC % 0.0 /100WBC Nucleated RBCs # 0 K/uL Sodium 131 L (136-146) mmol/L Potassium 3.1 L (3.5-5.1) mmol/L Chloride 92 L (98-110) mmol/L Carbon Dioxide 29 (21-31) mmol/L BUN 10 (6.0-23.0) mg/dL Creatinine 0.8 (0.6-1.5) mg/dL Est Cr Clr Drug Dosing 42.28 mL/min Estimated GFR (MDRD) > 60.0 ml/min Glucose 89 (60-110) mg/dL Calcium 8.0 L (8.8-10.8) mg/dL Matteo Results Last 24 Hours: Microbiology 05/11/17 21:08 Aerobic Blood Culture - Preliminary Blood - Venous - Lab Draw NO GROWTH AFTER 1 DAY Anaerobic Blood Culture - Preliminary NO GROWTH AFTER 1 DAY 05/11/17 16:01 Aerobic Blood Culture - Preliminary Blood - Venous NO GROWTH AFTER 1 DAY Anaerobic Blood Culture - Final Med Orders - Current: Current Medications Acetaminophen (Tylenol) 325 mg PO Q6H PRN PRN Reason: Pain Aspirin (Halfprin) 81 mg PO DAILY [facility] Last Admin: 05/13/17 08:52 Dose: 81 mg Atorvastatin Calcium (Lipitor) 10 mg PO DAILY [facility] Last Admin: 05/13/17 08:52 Dose: 10 mg Dorzolamide/Timolol (Cosopt 2%-0.5% Ophth Soln) 0 ml EYELF BID [facility] Last Admin: 05/13/17 08:53 Dose: 1 drop Ferrous Sulfate (Ferrous Sulfate) 325 mg PO DAILY [facility] Last Admin: 05/13/17 08:52 Dose: 325 mg Fish Oil (Fish Oil) 1 gm PO DAILY [facility] Last Admin: 05/13/17 08:52 Dose: 1 gm Furosemide (Lasix) 40 mg IVPUSH BID [facility] Heparin Sodium (Porcine) (Heparin Sodium) 5,000 units SUBCUT Q8H [facility] Last Admin: 05/13/17 06:33 Dose: 5,000 units Levofloxacin/Dextrose 750 mg/ (Premix) 150 mls @ 100 mls/hr IV Q48H [facility] Latanoprost (Xalatan 0.005% Ophth Soln) 0 ml EYELF BEDTIME [facility] Last Admin: 05/12/17 20:29 Dose: 1 drop Multivitamins/Minerals (Thera M Plus) 1 tab PO DAILY [facility] Last Admin: 05/13/17 09:47 Dose: 1 tab Nystatin (Nystop) 0 gm TOP TID [facility] Last Admin: 05/13/17 06:33 Dose: 1 applic Omeprazole (Omeprazole) 20 mg PO ACBREAKFAST [facility] Last Admin: 05/13/17 06:33 Dose: 20 mg Prednisolone Acetate (Pred Forte 1% Ophth Susp) 0 ml EYERT BID [facility] Last Admin: 05/13/17 08:53 Dose: 1 drop Sodium Chloride (Sodium Chloride) 1 gm PO DAILY [facility] Last Admin: 05/13/17 08:52 Dose: 1 gm Discontinued Medications Furosemide (Lasix) 40 mg IVPUSH NOW ONE Stop: 05/11/17 17:03 Last Admin: 05/11/17 17:29 Dose: 40 mg Furosemide (Lasix) 40 mg IVPUSH NOW ONE Stop: 05/12/17 08:59 Last Admin: 05/12/17 09:31 Dose: 40 mg Furosemide (Lasix) 40 mg IVPUSH NOW ONE Stop: 05/13/17 08:17 Last Admin: 05/13/17 08:52 Dose: 40 mg Levofloxacin/Dextrose 750 mg/ (Premix) 150 mls @ 100 mls/hr IV Q24H [facility] Last Admin: 05/11/17 18:41 Dose: 100 mls/hr Pneumococcal Polyvalent Vaccine (Pneumovax 23) 0.5 ml IM .ONCE ONE Stop: 05/11/17 18:35 Potassium Chloride (Klor-Con M20) 40 meq PO ONETIME ONE Stop: 05/13/17 08:15 Last Admin: 05/13/17 08:52 Dose: 40 meq - Exam General: Alert, Oriented, Cooperative HEENT: Pupils Equal Neck: Supple Lungs: Clear to Auscultation, Normal Respiratory Effort Cardiovascular: Regular Rate, Regular Rhythm GI/Abdominal Exam: Normal Bowel Sounds, Soft Extremities: Pedal Edema Peripheral Pulses: 1+: Posterior Tibial (L), Posterior Tibial (R) Skin: Warm Psy/Mental Status: Alert, Normal Affect, Normal Mood - Problem List Review Problem List Initiated/Reviewed/Updated: Yes - My Orders Last 24 Hours: My Active Orders 05/12/17 12:42 Echo Comp wo Cont [US] Urgent 05/14/17 05:11 BASIC METABOLIC PANEL,BMP [CHEM] AM CBC WITH AUTO DIFF [HEME] AM 05/15/17 05:11 BASIC METABOLIC PANEL,BMP [CHEM] AM CBC WITH AUTO DIFF [HEME] AM - Plan Plan:: Assessment: #1. Acute hypoxic respiratory failure secondary to CHF Exacerbation improved #2. Suspected pneumonia on CXR #3. Mild leukocytosis resolved #3. Chronic hyponatremia - improving #4. History of hypertension, hyponatremia, GERD, HLD Plan: #1. 40 mg IV Lasix twice a day #2. Echocardiogram results pending #3. Continue fluid restriction. Strict I's and O's and daily weight #4. JENNI hose application #5. it was agreed after discussion with the family and case management along with the patient that the patient's care is adequate at home. Upon the patient being clinically stable, she will be discharged home. This may be tomorrow or the day after.
[2017-05-13] MEDS ORDERED: Levofloxacin/Dextrose 5%-Water 750 MG in Premix Bag 1 BAG IV SCH (18:00)
[2017-05-13] MEDS ORDERED: Furosemide 40 MG/4 ML VIAL IVPUSH SCH (21:00)
[2017-05-13] MEDS: Latanoprost 0.005% Ophth Soln 2.5 ML Bottle EYELF SCH (21:19)
[2017-05-14 03:47] VITALS: BP 129/71
[2017-05-14] MEDS ORDERED: Atropine 0.1 MG/ML 10 ML Syringe IVPUSH STA (05:21)
--- NOTE | 2017-05-14 06:20 | PCM.SN ---
- Free Text/Narrative Note: Called at 0530 that patient was having bradycardia into the 20's and low 30's, unable to get blood pressure reading. Ordered 0.4 mg atropine and 250 IV NS bolus. By time nurses at bedside to give treatment patient was pulseless with no electrical activity on telemetry. Relatives of family here at 0600. Examined patient and pronounced at 0610.
[2017-05-14] MEDS ORDERED: Atropine 0.1 MG/ML 10 ML Syringe IVPUSH ONE (08:15)
--- NOTE | 2017-05-14 15:58 | PCM.DCSUM1 ---
Discharge Summary - Hospital Course Free Text/Narrative:: Admission date: May 11, 2017 Expiration date: May 14 2017 Admission diagnosis: #1. Acute hypoxic respiratory failure secondary to congestive heart failure exacerbation #2. Suspected pneumonia #3. Acute on Chronic hyponatremia #4. Mild leukocytosis Cause of : #1. Hypoxic respiratory failure secondary to congestive heart failure List of comorbidities: #1. Glaucoma #2. Hypertension #3. Recurrent pneumonia #4. Hyperlipidemia #5. GERD #6. Chronic hyponatremia Hospital course: This is a 87-year-old female with listed comorbidities and past medical health problems that presented to the emergency department with a chief complaint of leg swelling that was persistent and shortness of breath. She is being treated with Lasix as an outpatient by primary care provider but there were concerns about her kidney function and prolonged leg swelling and so was referred to the emergency department. Patient was admitted for observation for treatment for what was believed to be a congestive heart failure exacerbation and suspected pneumonia. She was placed on telemetry, diuresis with Lasix, was put on fluid restriction and IV Levaquin for her pneumonia. The patient was weaned off of oxygen and was expected to make a full recovery and return back to her baseline and return back home the following day. However, the night physician was notified of the patient having symptomatic bradycardia and becoming unresponsive to nursing staff. The patient was given 0.4 mg of atropine along with 250 mL fluid bolus. However, the patient went into asystole. Pronounced at 6:10 AM. - Discharge Data Discharge Date: 05/14/17 Discharge Disposition: 20 Condition: - Discharge Plan Home Medications: Home Meds Aspirin [Halfprin] 81 mg PO DAILY 06/06/14 [History] Dorzolamide/Timolol [Cosopt 2%-0.5% Oph Soln] 1 drop EYELF BID 06/06/14 [ History] Fish Oil/Sylvester-3 Fatty Acids [Fish Oil] 500 mg PO DAILY 06/06/14 [History] Latanoprost 1 drop EYELF BEDTIME 06/06/14 [History] Multivitamin with Minerals [Multiple Vitamin] 1 tab PO DAILY 11/19/16 [History] atorvaSTATin [Lipitor] 10 mg PO BEDTIME 11/19/16 [History] prednisoLONE Acetate [Pred Forte 1% Oph Susp] 1 drop EYERT BID 11/19/16 [ History] Nystatin [Nystop] 100,000 units TOP TID #30 bottle 11/24/16 [Rx] Acetaminophen 325 mg PO Q6H PRN 04/21/17 [History] Felodipine [Felodipine ER] 10 mg PO DAILY #30 dose 04/25/17 [Rx] Losartan [Cozaar] 100 mg PO DAILY #30 tablet 04/25/17 [Rx] Ferrous Sulfate 324 mg PO BID 05/11/17 [History] Furosemide [Lasix] 40 mg PO DAILY 05/11/17 [History] Omeprazole 20 mg PO DAILY 05/11/17 [History] Sodium Chloride 1 gm PO DAILY 05/12/17 [History] Forms: ED Department Discharge Referrals: Brody Iqbal MD [Primary Care Provider] - - Patient Data Vitals - Most Recent: Last Vital Signs Temp 36.4 C 05/14/17 03:46 Pulse 100 05/14/17 03:46 Resp 16 05/14/17 03:46 BP 129/71 05/14/17 03:46 Pulse Ox 93 L 05/14/17 03:46 Weight - Most Recent: 66.224 kg I&O - Last 24 hours: Intake & Output 05/14/17 05/14/17 05/14/17 06:59 14:59 22:59 Intake Total 150 Output Total 862 Balance -712 Lab Results - Last 24 hrs: Laboratory Results - last 24 hr 05/14/17 05/14/17 Range/Units 05:08 05:08 WBC 14.72 H (4.0-11.0) K/uL RBC 3.71 L (4.30-5.90) M/uL Hgb 10.8 L (12.0-16.0) g/dL Hct 32.5 L (36.0-46.0) % MCV 87.6 (80.0-98.0) fL MCH 29.1 (27.0-32.0) pg MCHC 33.2 (31.0-37.0) g/dL RDW Std Deviation 53.3 (28.0-62.0) fl RDW Coeff of Dillon 17 H (11.0-15.0) % Plt Count 469 H (150-400) K/uL MPV 10.40 (7.40-12.00) fL Neut % (Auto) 60.9 (48.0-80.0) % Lymph % (Auto) 30.8 (16.0-40.0) % Lynn % (Auto) 7.3 (0.0-15.0) % Eos % (Auto) 0.7 (0.0-7.0) % Baso % (Auto) 0.3 (0.0-1.5) % Neut # (Auto) 9.0 H (1.4-5.7) K/uL Lymph # (Auto) 4.5 H (0.6-2.4) K/uL Lynn # (Auto) 1.1 H (0.0-0.8) K/uL Eos # (Auto) 0.1 (0.0-0.7) K/uL Baso # (Auto) 0.0 (0.0-0.1) K/uL Nucleated RBC % 0.0 /100WBC Nucleated RBCs # 0 K/uL Sodium 128 L (136-146) mmol/L Potassium 3.7 (3.5-5.1) mmol/L Chloride 88 L (98-110) mmol/L Carbon Dioxide 26 (21-31) mmol/L BUN 10 (6.0-23.0) mg/dL Creatinine 0.9 (0.6-1.5) mg/dL Est Cr Clr Drug Dosing 37.58 mL/min Estimated GFR (MDRD) 59.1 ml/min Glucose 171 H (60-110) mg/dL Calcium 8.5 L (8.8-10.8) mg/dL OJ Results - Last 24 hrs: Microbiology 05/11/17 21:08 Aerobic Blood Culture - Preliminary Blood - Venous - Lab Draw NO GROWTH AFTER 2 DAYS Anaerobic Blood Culture - Preliminary NO GROWTH AFTER 2 DAYS 05/11/17 16:01 Aerobic Blood Culture - Preliminary Blood - Venous NO GROWTH AFTER 2 DAYS Anaerobic Blood Culture - Final Med Orders - Current: Current Medications Discontinued Medications Acetaminophen (Tylenol) 325 mg PO Q6H PRN PRN Reason: Pain Aspirin (Halfprin) 81 mg PO DAILY [facility] Last Admin: 05/13/17 08:52 Dose: 81 mg Atorvastatin Calcium (Lipitor) 10 mg PO DAILY [facility] Last Admin: 05/13/17 08:52 Dose: 10 mg Atropine Sulfate (Atropine 0.1 Mg/Ml) 0.4 mg IVPUSH ONETIME STA Stop: 05/14/17 05:22 Last Admin: 05/14/17 05:28 Dose: 0.4 mg Atropine Sulfate (Atropine 0.1 Mg/Ml) 0 mg IVPUSH .STK-MED ONE Stop: 05/14/17 08:16 Dorzolamide/Timolol (Cosopt 2%-0.5% Ophth Soln) 0 ml EYELF BID [facility] Last Admin: 05/13/17 21:18 Dose: 1 drop Ferrous Sulfate (Ferrous Sulfate) 325 mg PO DAILY [facility] Last Admin: 05/13/17 08:52 Dose: 325 mg Fish Oil (Fish Oil) 1 gm PO DAILY [facility] Last Admin: 05/13/17 08:52 Dose: 1 gm Furosemide (Lasix) 40 mg IVPUSH NOW ONE Stop: 05/11/17 17:03 Last Admin: 05/11/17 17:29 Dose: 40 mg Furosemide (Lasix) 40 mg IVPUSH NOW ONE Stop: 05/12/17 08:59 Last Admin: 05/12/17 09:31 Dose: 40 mg Furosemide (Lasix) 40 mg IVPUSH NOW ONE Stop: 05/13/17 08:17 Last Admin: 05/13/17 08:52 Dose: 40 mg Furosemide (Lasix) 40 mg IVPUSH BID [facility] Last Admin: 05/13/17 21:18 Dose: 40 mg Heparin Sodium (Porcine) (Heparin Sodium) 5,000 units SUBCUT Q8H [facility] Last Admin: 05/13/17 21:21 Dose: 5,000 units Levofloxacin/Dextrose 750 mg/ (Premix) 150 mls @ 100 mls/hr IV Q24H [facility] Last Admin: 05/11/17 18:41 Dose: 100 mls/hr Levofloxacin/Dextrose 750 mg/ (Premix) 150 mls @ 100 mls/hr IV Q48H [facility] Last Admin: 05/13/17 17:31 Dose: 100 mls/hr Latanoprost (Xalatan 0.005% Ophth Soln) 0 ml EYELF BEDTIME [facility] Last Admin: 05/13/17 21:19 Dose: 1 drop Multivitamins/Minerals (Thera M Plus) 1 tab PO DAILY [facility] Last Admin: 05/13/17 09:47 Dose: 1 tab Nystatin (Nystop) 0 gm TOP TID [facility] Last Admin: 05/13/17 21:21 Dose: 1 applic Omeprazole (Omeprazole) 20 mg PO ACBREAKFAST [facility] Last Admin: 05/13/17 06:33 Dose: 20 mg Pneumococcal Polyvalent Vaccine (Pneumovax 23) 0.5 ml IM .ONCE ONE Stop: 05/11/17 18:35 Potassium Chloride (Klor-Con M20) 40 meq PO ONETIME ONE Stop: 05/13/17 08:15 Last Admin: 05/13/17 08:52 Dose: 40 meq Prednisolone Acetate (Pred Forte 1% Ophth Susp) 0 ml EYERT BID [facility] Last Admin: 05/13/17 21:19 Dose: 1 drop Sodium Chloride (Sodium Chloride) 1 gm PO DAILY [facility] Last Admin: 05/13/17 08:52 Dose: 1 gm *Q Meaningful Use (DIS) - VTE *Q VTE Criteria *Q: - Stroke *Q Stroke Criteria *Q: - AMI *Q AMI Criteria *Q:
--- NOTE | 2017-05-15 13:16 | ECHO ---
EXAM DATE: 05/11/17 PATIENT'S AGE: 87 The echocardiogram report can be seen in this patient's EMR (Electronic Medical Record) in the Reports section. The report has also been scanned into PACs. TREY
== END 2017-05-14 08:16 | disposition expired | DRG 291 ==
LOC: MW.ED 13:47 → MW.MS 15:24
PROVIDERS: ADMIT Internal Medicine; ATTEND Internal Medicine
DX: I50.20 Unspecified systolic (congestive) heart failure (principal); R09.02 Hypoxemia; M79.89 Other specified soft tissue disorders; J96.01 Acute respiratory failure with hypoxia; E78.00 Pure hypercholesterolemia, unspecified; J18.9 Pneumonia, unspecified organism; E87.1 Hypo-osmolality and hyponatremia; I10 Essential (primary) hypertension; E78.5 Hyperlipidemia, unspecified; K21.9 Gastro-esophageal reflux disease without esophagitis; H40.9 Unspecified glaucoma; D72.829 Elevated white blood cell count, unspecified; Z88.8 Allergy status to other drugs, medicaments and biological substances; Z79.899 Other long term (current) drug therapy; Z79.82 Long term (current) use of aspirin; Z66 Do not resuscitate
CPT/HCPCS: 36410; 36415; 36600; 71046; 71046-26; 80048; 80053; 81001; 82803; 83880; 84484; 85025; 87040; 87804; 93005; 93306; 99284; 99285-25; A9270-GY; J0461; J1644; J1940; J1956